=== PATIENT | male | born 1985 | race Caucasian/White ===

== ENCOUNTER 2021-01-10 08:09 | Inpatient (IN) | payer MEDICARE, OTHER ==
[~2021-01-10] VITALS: Ht 182.9 cm; Wt 61.2 kg
--- NOTE | 2021-01-10 08:30 | NUR ---
TO ER BED 4, BIBA RA 60 from [facility] "was being readied for dialysis today when he started c/o Chest pain, pt alert to name and stimuli, mumbles words that are not comprehendable, attached to monitor
[2021-01-10 09:00] LABS: BASOPHILS # (AUTO) 0.1 K/uL (0.0-0.2); EOSINOPHILS % (AUTO) 3.1 % (0.0-6.0); HEMATOCRIT 31 % (39-51); LYMPHOCYTES # (AUTO) 1.3 K/uL (0.8-4.8); LYMPHOCYTES % (AUTO) 18.5 % (20.0-44.0); MEAN CORPUSCULAR HGB CONC 33 g/dl (31.0-36.0); MEAN CORPUSCULAR VOLUME 88 fL (80-96); MONOCYTES # (AUTO) 0.7 K/uL (0.1-1.30); MONOCYTES % (AUTO) 10.7 % (2.0-12.0); NEUTROPHILS # (AUTO) 4.5 K/uL (1.8-8.9); NEUTROPHILS % (AUTO) 66.7 % (43.0-81.0); PLATELET COUNT (AUTO) 249 K/uL (150-450); RED BLOOD CELL COUNT(AUTO) 3.45 MIL/uL (4.5-6.0); WHITE BLOOD COUNT (AUTO) 6.8 K/uL (4.3-11.0)
[2021-01-10 09:11] LABS: CALCIUM, SERUM 10.3 mg/dL (8.5-10.1)
[2021-01-10 09:12] LABS: CREATININE 8.2 mg/dL (0.6-1.3)
--- NOTE | 2021-01-10 09:12 | NUR ---
covid swab done and sent to lab
--- NOTE | 2021-01-10 09:21 | NUR ---
MOVE SHEET SUBMITTED.
[2021-01-10] MEDS ORDERED: ASPIRIN 300 MG/SUPP.RECT RC ONE ×2 (09:28→09:30)
[2021-01-10] MEDS ORDERED: AZITHROMYCIN 500 MG in IV D5W 250 ML IV ONE (09:30)
[2021-01-10] MEDS ORDERED: CEFTRIAXONE 1 G in IV D5W 50 ML IV SCH (09:30)
[2021-01-10] MEDS ORDERED: LOSA25TA27 GT (10:13)
[2021-01-10] MEDS ORDERED: MINO2.5T GT (10:13)
[2021-01-10] MEDS ORDERED: FOLI0.8T2 GT (10:13)
[2021-01-10] MEDS ORDERED: NUT.237L67 GT (10:13)
[2021-01-10] MEDS ORDERED: CARV6.25 GT (10:13)
[2021-01-10] MEDS ORDERED: BISA10SU11 RC (10:13)
[2021-01-10] MEDS ORDERED: ACET325T53 PO (10:13)
[2021-01-10] MEDS ORDERED: LEVE500T9 GT (10:13)
[2021-01-10] MEDS ORDERED: HYDR-3973 GT (10:13)
[2021-01-10] MEDS ORDERED: ZINC220C6 GT (10:13)
[2021-01-10] MEDS ORDERED: MAGN400O6 GT (10:13)
[2021-01-10] MEDS ORDERED: SENN8.6T19 GT (10:13)
[2021-01-10] MEDS ORDERED: AMIN30LI2 GT (10:13)
[2021-01-10] MEDS ORDERED: ASCO500C17 GT (10:13)
[2021-01-10] MEDS ORDERED: OLAN2.5T3 GT (10:13)
--- NOTE | 2021-01-10 10:23 | NUR ---
BED 116-1
--- NOTE | 2021-01-10 10:51 | NUR ---
REPORT GIVEN TO ZION LLANES FOR UMESH
--- NOTE | 2021-01-10 10:56 | NUR ---
PATIENT TRANSFERRED TO ROOM 116-1 VIA ACLS PROTOCOL. IN NO DISTRESS NOTED.
--- NOTE | 2021-01-10 11:05 | NUR ---
received from er via stretcher ,no acute distress,md notified for admitting orders.
--- NOTE | 2021-01-10 11:27 | NUR ---
able to notify [facility] np will put orders.
[2021-01-10] MEDS ORDERED: BISACODYL SUPP (10 MG) 10 MG/SUPP.RECT SUPP.RECT RC PRN (12:00)
[2021-01-10] MEDS ORDERED: NEPRO 1,000 ML BOTTLE GT PRN (12:00)
[2021-01-10] MEDS ORDERED: NEPRO VAN 237 ML CAN GT SCH (12:00)
[2021-01-10] MEDS ORDERED: ONDANSETRON HCL/PF 4 MG/2 ML VIAL IVP PRN (12:00)
[2021-01-10] MEDS ORDERED: ASCORBIC ACID SYRUP 500 MG/5 ML UDC PO SCH (12:00)
--- NOTE | 2021-01-10 12:00 | NUR ---
RN NOTES PT RECEIVED FROM ER. PT STABLE WITH L ARM #20 GAUGE WITH AZITHROMYCIN RUNNING. SKIN INTACT AND VS STABLE. GT FLUSHING NO SIGN OF LEAKAGE. PT IS A/O X1. WILL CONTINUE TO MONITOR
[2021-01-10] MEDS: MINOXIDIL (2.5MG) 2.5 MG TABLET GT SCH ×2 (12:07→16:07)
[2021-01-10] MEDS: ZINC SULFATE 220 MG CAPSULE GT SCH (12:07)
[2021-01-10] MEDS: OLANZAPINE 2.5 MG TABLET GT SCH ×2 (12:07→16:07)
[2021-01-10] MEDS: CARVEDILOL 6.25 MG TABLET GT SCH ×2 (12:07→16:07)
[2021-01-10] MEDS: LOSARTAN POTASSIUM 25 MG TABLET GT SCH (12:07)
[2021-01-10] MEDS: LEVETIRACETAM SOL (5 ML) 100 MG/ML UDC PO SCH ×2 (12:27→22:15)
[2021-01-10] MEDS: VIT B CMPLX 3/FA/VIT C/BIOTIN 1 TAB TABLET GT SCH (12:27)
[2021-01-10 14:23] VITALS: BP 134/92
--- NOTE | 2021-01-10 15:34 | NUR ---
patient keep asking for food,verify with facility pt. taking food for oral gratification, aware and ok to resume it.
--- NOTE | 2021-01-10 18:28 | NUR ---
RN CLOSING NOTES PT IS STABLE AND A/O X1. PT IS RECEIVING DIALYSIS. PT HAS GT TUBE AND IS RUNNING AT 60ML/HR. WILL CONTINUE GT FEEDING AFTER DIALYSIS. PT ON TELE AND IS TACHY. PT HAS LEFT IV 20 GAUGE SALINE LOCK. FLUSHED FINE. SKIN INTACT. PT PLACED ON GT/PUREE DIET. WILL CONTINUE TO MONITOR
[2021-01-10 20:00] VITALS: BP 135/80
--- NOTE | 2021-01-10 20:00 | NUR ---
radiotelephone technical operator NOTES PT IN BED AWAKE A/O X1-2. DIALYSIS TREATMENT ON PROGRESS DIALYSIS NURSE AT BEDSIDE ,NO SOB NO DISTRESS NOTED ON R/A SATING 100% GT TUBE NEPHRO 1.8 AT 60ML/HR. TOLERATING WELL , ON ST 101 ON THE MONITOR , WITH LEFT AC IV 20 GAUGE SALINE LOCK. INTACT AND PATENT. SKIN INTACT. PT PLACED ON GT/PUREE DIET. V/S STABLE AFEBRILE ,WILL CONTINUE TO MONITOR.
--- NOTE | 2021-01-10 20:30 | NUR ---
MATHEMATICS IMPROVEMENT TEACHER NOTES HD TREATMENT COMPLETED AT 2030 HRS WITH 2 LITERS OUT , ALL DUE MEDS GIVEN ORDERED , PTS NOTED PULLING DIALYSIS DRESSING TOLD HIM NOT TO PULL . APPLIED NEW DRESSING , PTS GIVE SOME PUREED DIET TOLERATED WELL .WILL CONTINUE TO MONITOR PTS.
[2021-01-10] MEDS: SENNOSIDES 8.6 MG TABLET GT SCH (22:15)
[2021-01-10] MEDS: HEPARIN SODIUM, PORCINE 5000 UNITS/1 ML VIAL SQ SCH (22:16)
[2021-01-11] VITALS: BP 128/89
--- NOTE | 2021-01-11 00:30 | NUR ---
EDUCATION PROFESSOR NOTES PTS AGAIN REMOVED THE DIALYSIS DRESSING ,WILL INFORMED MD TO GET ORDER FOR BILATERAL SOFT WRIST RESTRAINT , WILL CONTINUE TO MONITOR PTS.
--- NOTE | 2021-01-11 02:20 | NUR ---
MICROSOFT NET DEVELOPER NOTES ABLE TO GET ORDER FROM MD SENIOR JAVA WEB APPLICATION DEVELOPER DR HUSSEIN FOR BILATERAL SOFT WRIST RESTRAINT ORDER NOTED AND CARRIED OUT .
[2021-01-11 04:00] VITALS: BP 134/98
[2021-01-11 07:15] LABS: BASOPHILS % (AUTO) 0.8 % (0.0-2.0); EOSINOPHILS % (AUTO) 2.4 % (0.0-6.0); HEMATOCRIT 34 % (39-51); HEMOGLOBIN 11.1 g/dL (13.5-17.5); LYMPHOCYTES # (AUTO) 1.2 K/uL (0.8-4.8); LYMPHOCYTES % (AUTO) 21.2 % (20.0-44.0); MEAN CORPUSCULAR HGB CONC 33 g/dl (31.0-36.0); MEAN CORPUSCULAR VOLUME 89 fL (80-96); MONOCYTES # (AUTO) 0.6 K/uL (0.1-1.30); MONOCYTES % (AUTO) 9.8 % (2.0-12.0); NEUTROPHILS # (AUTO) 3.8 K/uL (1.8-8.9); NEUTROPHILS % (AUTO) 65.8 % (43.0-81.0); PLATELET COUNT (AUTO) 236 K/uL (150-450); WHITE BLOOD COUNT (AUTO) 5.8 K/uL (4.3-11.0)
--- NOTE | 2021-01-11 07:15 | NUR ---
RN OPENING NOTE Received patient asleep in bed appears calm and relaxed no signs of distress. On room air tolerating well. Noted with bilateral soft wrist restraints. intranet support removed 1 wrist restraint because patient was yelling. NGT Nepro at 60ml/hr tolerating well. L AC #20 flushes well. Safety measures maintained. Call light within reach. Will continue to monitor.
--- NOTE | 2021-01-11 07:28 | NUR ---
DISPENSARY ATTENDANT NOTES REPORT GIVEN TO TRICIA RN FOR CONTINUITY OF CARE.
[2021-01-11 07:37] LABS: CALCIUM, SERUM 9.8 mg/dL (8.5-10.1)
[2021-01-11 08:00] VITALS: BP 154/91
--- NOTE | 2021-01-11 09:00 | NUR ---
PUT PATIENT ON BILATERAL RESTRAINTS AGAIN DUE TO PULLING OUT DRESSING OF HD CATH.
[2021-01-11] MEDS: ZINC SULFATE 220 MG CAPSULE GT SCH (09:09)
[2021-01-11] MEDS: LEVETIRACETAM SOL (5 ML) 100 MG/ML UDC PO SCH ×2 (09:10→20:05)
[2021-01-11] MEDS: CARVEDILOL 6.25 MG TABLET GT SCH ×2 (09:10→16:54)
[2021-01-11] MEDS: ASCORBIC ACID 500 MG TABLET GT SCH (09:10)
[2021-01-11] MEDS: LOSARTAN POTASSIUM 25 MG TABLET GT SCH (09:11)
[2021-01-11] MEDS: OLANZAPINE 2.5 MG TABLET GT SCH ×2 (09:12→16:53)
[2021-01-11] MEDS: MINOXIDIL (2.5MG) 2.5 MG TABLET GT SCH ×2 (09:12→16:54)
[2021-01-11] MEDS: PROSOURCE / PROSTAT (PYXIS) 30 ML UDC GT SCH (09:12)
[2021-01-11] MEDS: VIT B CMPLX 3/FA/VIT C/BIOTIN 1 TAB TABLET GT SCH (09:12)
[2021-01-11] MEDS: HEPARIN SODIUM, PORCINE 5000 UNITS/1 ML VIAL SQ SCH ×2 (09:14→20:07)
[2021-01-11] MEDS ORDERED: LEVOFLOXACIN 500 MG /D5W 100ML 500 MG in PREMIX 1 EA IV SCH (10:00)
[2021-01-11] MEDS: LEVOFLOXACIN 250 MG /D5W 50 ML 250 MG in PREMIX 1 EA IV SCH (10:45)
[2021-01-11 12:00] VITALS: BP 157/91
[2021-01-11] MEDS ORDERED: ACETAMINOPHEN 325 MG TABLET PO PRN (12:30)
[2021-01-11] MEDS: NEPRO 1,000 ML BOTTLE GT PRN (12:33)
[2021-01-11 16:00] VITALS: BP 151/94
--- NOTE | 2021-01-11 18:52 | NUR ---
RN CLOSING NOTE Patient in bed calm and relaxed. No signs of distress on room air. On bilateral soft wrist restraints. GTF running tolerating well. Also has good food oral intake. Vital signs within normal limits. Maintained safety measures. R chest HD cath and L AC dressing intact. Endorsed to restaurant shift leader for alka.
[2021-01-11 20:00] VITALS: BP 163/88
--- NOTE | 2021-01-11 20:00 | NUR ---
manager telemetry NOTES PT IN BED AWAKE A/O X1-2 ,NO SOB NO DISTRESS NOTED ON R/A SATING 100% GT TUBE NEPHRO 1.8 AT 60ML/HR. TOLERATING WELL , ON ST 100 ON THE MONITOR , WITH LEFT AC IV 20 GAUGE SALINE LOCK. INTACT AND PATENT. SKIN INTACT. PT PLACED ON GT/PUREE DIET. ON BILATERAL WRIST RESTRAINT D/T PULLING OF DRESSING HD CATH AND PULLING INVASIVE TUBING V/S STABLE AFEBRILE.PTS NOTED WITH EPISODE OF SCREAMING .WILL CONTINUE TO MONITOR.
[2021-01-11] MEDS: SENNOSIDES 8.6 MG TABLET GT SCH (22:44)
[2021-01-12] VITALS: BP 148/99
[2021-01-12 04:00] VITALS: BP 156/90
[2021-01-12] MEDS: NEPRO 1,000 ML BOTTLE GT PRN (04:54)
--- NOTE | 2021-01-12 06:11 | NUR ---
television picture tube rebuilder notes Pts remains in bed awake stable screams at times ,no sob no distress noted all needs attended too .call light within reach .kept pts clean dry and comfortable ,will endorse pts to rn day shift for continuity of care .
[2021-01-12 07:14] LABS: BASOPHILS % (AUTO) 0.7 % (0.0-2.0); EOSINOPHILS % (AUTO) 1.9 % (0.0-6.0); HEMATOCRIT 33 % (39-51); HEMOGLOBIN 10.8 g/dL (13.5-17.5); LYMPHOCYTES # (AUTO) 1.5 K/uL (0.8-4.8); LYMPHOCYTES % (AUTO) 20.1 % (20.0-44.0); MEAN CORPUSCULAR HGB CONC 32 g/dl (31.0-36.0); MEAN CORPUSCULAR VOLUME 88 fL (80-96); MONOCYTES # (AUTO) 0.7 K/uL (0.1-1.30); MONOCYTES % (AUTO) 9.5 % (2.0-12.0); NEUTROPHILS # (AUTO) 4.9 K/uL (1.8-8.9); NEUTROPHILS % (AUTO) 67.8 % (43.0-81.0); PLATELET COUNT (AUTO) 234 K/uL (150-450); RED BLOOD CELL COUNT(AUTO) 3.77 MIL/uL (4.5-6.0); WHITE BLOOD COUNT (AUTO) 7.3 K/uL (4.3-11.0)
[2021-01-12 07:33] LABS: CALCIUM, SERUM 10.5 mg/dL (8.5-10.1); CREATININE 6.9 mg/dL (0.6-1.3); MAGNESIUM 2.6 mg/dL (1.8-2.4); PHOSPHORUS 5.6 mg/dL (2.5-4.9); POTASSIUM 4.5 mmol/L (3.5-5.1)
--- NOTE | 2021-01-12 07:45 | NUR ---
RN OPENING NOTES; RECEIVED PT IN BED RESTING. PT A/OX1. 0 SOB OR DISTRESS NOTED. PT SKIN INTACT. PT ON SOFT WRIST RESTRAINT, RENEWED AT 0300 THIS MORNING. SAFETY MEASURES RENDERED. BED IN LOWEST POSITION WITH BED LOCK AND CALL LIGHT WITHIN REACH. WILL CONTINUE TO MONITOR.
[2021-01-12 08:00] VITALS: BP 156/90
[2021-01-12] MEDS: OLANZAPINE 2.5 MG TABLET GT SCH ×2 (09:27→16:19)
[2021-01-12] MEDS: ASCORBIC ACID 500 MG TABLET GT SCH (09:27)
[2021-01-12] MEDS: LOSARTAN POTASSIUM 25 MG TABLET GT SCH (09:27)
[2021-01-12] MEDS: ZINC SULFATE 220 MG CAPSULE GT SCH (09:27)
[2021-01-12] MEDS: MINOXIDIL (2.5MG) 2.5 MG TABLET GT SCH ×2 (09:27→16:19)
[2021-01-12] MEDS: CARVEDILOL 6.25 MG TABLET GT SCH ×2 (09:28→16:19)
[2021-01-12] MEDS: LEVETIRACETAM SOL (5 ML) 100 MG/ML UDC PO SCH ×2 (09:30→21:46)
[2021-01-12] MEDS: PROSOURCE / PROSTAT (PYXIS) 30 ML UDC GT SCH (09:30)
[2021-01-12] MEDS: VIT B CMPLX 3/FA/VIT C/BIOTIN 1 TAB TABLET GT SCH (09:30)
[2021-01-12] MEDS: HEPARIN SODIUM, PORCINE 5000 UNITS/1 ML VIAL SQ SCH ×2 (09:31→21:58)
[2021-01-12] MEDS: LEVOFLOXACIN 250 MG /D5W 50 ML 250 MG in PREMIX 1 EA IV SCH (10:08)
[2021-01-12 12:00] VITALS: BP 142/96
[2021-01-12 16:00] VITALS: BP 133/90
--- NOTE | 2021-01-12 18:56 | NUR ---
RN CLOSING NOTES; PT IN BED RESTING. PT A/OX1. 0 SOB OR DISTRESS NOTED. PT SKIN INTACT. PT ON SOFT WRIST RESTRAINT, RENEWED AT 0300 THIS MORNING. SAFETY MEASURES RENDERED. PT HAD DIALYSIS AND TOLERATED WELL. BED IN LOWEST POSITION WITH BED LOCK AND CALL LIGHT WITHIN REACH. ENDORSE TO ELECTROLYSIS INVESTIGATOR IN STABLE CONDITION.
[2021-01-12 20:00] VITALS: BP 127/82
[2021-01-12] MEDS: SENNOSIDES 8.6 MG TABLET GT SCH (21:46)
[2021-01-13] VITALS: BP 135/91
[2021-01-13 04:00] VITALS: BP 138/72
[2021-01-13] MEDS: NEPRO 1,000 ML BOTTLE GT PRN (05:36)
--- NOTE | 2021-01-13 06:57 | NUR ---
RN NOTES, PATIENT SLEEPING A/OX1, ON 2LPM VIA NC WITH OPTIMAL O2 SAT LEVEL, NO SOB/ACUTE DISTRESS NOTED, ON BILATERAL SOFT WRIST RESTRAINT, PATIENT ATTEMPTING TO PULL LINES SPECIALLY ZORAIDA CATH FOR HD, KEPT SAFE ALL NIGHT, BED LOCKED AND LOWEST POSITION, WILL ENDORSE CONTINUITY OF CARE TO ONCOMING NURSE.
[2021-01-13 07:21] LABS: BASOPHILS % (AUTO) 0.8 % (0.0-2.0); EOSINOPHILS % (AUTO) 1.2 % (0.0-6.0); HEMATOCRIT 33 % (39-51); HEMOGLOBIN 10.9 g/dL (13.5-17.5); LYMPHOCYTES # (AUTO) 1.1 K/uL (0.8-4.8); MEAN CORPUSCULAR HGB CONC 33 g/dl (31.0-36.0); MEAN CORPUSCULAR VOLUME 88 fL (80-96); MONOCYTES # (AUTO) 0.7 K/uL (0.1-1.30); NEUTROPHILS # (AUTO) 3.8 K/uL (1.8-8.9); PLATELET COUNT (AUTO) 208 K/uL (150-450); RED BLOOD CELL COUNT(AUTO) 3.72 MIL/uL (4.5-6.0); WHITE BLOOD COUNT (AUTO) 5.7 K/uL (4.3-11.0)
--- NOTE | 2021-01-13 07:41 | NUR ---
RN OPENING NOTES; RECEIVED PT IN BED RESTING. PT A/OX1. 0 SOB OR DISTRESS NOTED. PT SKIN INTACT. PT ON SOFT WRIST RESTRAINT, RENEWED AT 0300 THIS MORNING. LPT IS NO NEPHRO 1.8C 60ML/HR. TOLERATING WELL WITH NO RESIDUALS. SAFETY MEASURES RENDERED. BED IN LOWEST POSITION WITH BED LOCK AND CALL LIGHT WITHIN REACH. WILL CONTINUE TO MONITOR.
[2021-01-13 07:43] LABS: CALCIUM, SERUM 10.3 mg/dL (8.5-10.1); CREATININE 6.3 mg/dL (0.6-1.3); MAGNESIUM 2.7 mg/dL (1.8-2.4); PHOSPHORUS 5.1 mg/dL (2.5-4.9); POTASSIUM 3.9 mmol/L (3.5-5.1)
[2021-01-13 08:00] VITALS: BP 145/94
[2021-01-13] MEDS: VIT B CMPLX 3/FA/VIT C/BIOTIN 1 TAB TABLET GT SCH (09:05)
[2021-01-13] MEDS: LEVETIRACETAM SOL (5 ML) 100 MG/ML UDC PO SCH ×2 (09:05→21:55)
[2021-01-13] MEDS: HEPARIN SODIUM, PORCINE 5000 UNITS/1 ML VIAL SQ SCH ×2 (09:08→21:56)
[2021-01-13] MEDS: CARVEDILOL 6.25 MG TABLET GT SCH ×2 (09:09→16:42)
[2021-01-13] MEDS: MINOXIDIL (2.5MG) 2.5 MG TABLET GT SCH ×2 (09:09→16:42)
[2021-01-13] MEDS: LOSARTAN POTASSIUM 25 MG TABLET GT SCH (09:09)
[2021-01-13] MEDS: ASCORBIC ACID 500 MG TABLET GT SCH (09:10)
[2021-01-13] MEDS: ZINC SULFATE 220 MG CAPSULE GT SCH (09:10)
[2021-01-13] MEDS: OLANZAPINE 2.5 MG TABLET GT SCH ×2 (09:10→16:41)
[2021-01-13] MEDS: PROSOURCE / PROSTAT (PYXIS) 30 ML UDC GT SCH (09:10)
[2021-01-13] MEDS ORDERED: LEVOFLOXACIN (250MG) 250 MG TABLET PO SCH (11:00)
[2021-01-13 12:00] VITALS: BP 126/78
[2021-01-13 16:00] VITALS: BP 128/84
--- NOTE | 2021-01-13 18:26 | NUR ---
RN CLOSING NOTES; PT IN BED RESTING. PT A/OX1. 0 SOB OR DISTRESS NOTED. PT SKIN INTACT. PT ON SOFT WRIST RESTRAINT, RENEWED AT 0300. PT TO BE DISCHARGED. WAITING GEODETIC ENGINEER FROM MECHANICAL PRODUCT ENGINEER. ALL DISCHARGE PAPER WORK DONE. AWAITING FOR SNF TO GIVE CLEARANCE ON OPEN BED. SAFETY MEASURES RENDERED. PT HAD DIALYSIS AND TOLERATED WELL. BED IN LOWEST POSITION WITH BED LOCK AND CALL LIGHT WITHIN REACH. ENDORSE TO HELP DESK ASSOCIATE IN STABLE CONDITION.
[2021-01-13 20:00] VITALS: BP 132/79
--- NOTE | 2021-01-13 20:00 | NUR ---
RN NOTE RECEIVED PT IN BED, ALERT AND ORIENTED X1, NOT IN ANY DISTRESS. ON O2 VIA NC AT 2L. DENIES ANY SOB, HD CATH ON RCHEST INTACT, IV ON LAC PATENT AND INTACT. PT WITH SOFT RESTRAINTS ON HERNAN WRIST, WITH GOOD CIRCULATION. GT PATENT AND IN PLACE, AUSCULTATED FOR PLACEMENT. WILL CONTINUE TO MONITOR. ALL SAFETY MEASURES IN PLACE PER PROTOCOL.
[2021-01-13] MEDS: SENNOSIDES 8.6 MG TABLET GT SCH (22:11)
[2021-01-14 04:00] VITALS: BP 141/90
[2021-01-14] MEDS: NEPRO 1,000 ML BOTTLE GT PRN (05:06)
--- NOTE | 2021-01-14 07:00 | NUR ---
RN NOTE PT SLEEPING. WITH EPISODES OF SCRATCHING AND PULLING OUT HD DRESSINGS, DESPITE OF RESTRAINTS, PT STILL MANAGE TO PULL OUT. NO S/SX OF INFECTION NOTED. HD REMAIN INTACT. CONTINUE ON GT FEEDING OF NEPRO AT 60ML/HR. NO RESIDUALS NOTED. KEPT HOB ELEVATED. CONTINUE WITH RESTRAINTS, WITH GOOD CIRCULATION, WNL NO SKIN BREAKDOWN NOTED. ON FREQUENT VISUAL CHECKS. WILL ENDORSE TO NEXT SHIFT NURSE FOR UMESH.
--- NOTE | 2021-01-14 07:30 | NUR ---
ms rn note patient in bed ,awake alert x1, on 2l nc, no sob noted at this time , on g tube feeding as ordered , no residual noted at this time ,keep hob elevated , rt cw hd cath in placed , lac hl intact ,bed in lowest and locked position, will cont to monitor closely
[2021-01-14] MEDS: VIT B CMPLX 3/FA/VIT C/BIOTIN 1 TAB TABLET GT SCH (08:21)
[2021-01-14] MEDS: ZINC SULFATE 220 MG CAPSULE GT SCH (08:22)
[2021-01-14] MEDS: ASCORBIC ACID 500 MG TABLET GT SCH (08:22)
[2021-01-14] MEDS: PROSOURCE / PROSTAT (PYXIS) 30 ML UDC GT SCH (08:22)
[2021-01-14] MEDS: LEVETIRACETAM SOL (5 ML) 100 MG/ML UDC PO SCH (08:22)
[2021-01-14] MEDS: OLANZAPINE 2.5 MG TABLET GT SCH (08:23)
[2021-01-14] MEDS: LOSARTAN POTASSIUM 25 MG TABLET GT SCH (08:23)
[2021-01-14] MEDS: CARVEDILOL 6.25 MG TABLET GT SCH (08:23)
[2021-01-14] MEDS: MINOXIDIL (2.5MG) 2.5 MG TABLET GT SCH (08:25)
[2021-01-14] MEDS: HEPARIN SODIUM, PORCINE 5000 UNITS/1 ML VIAL SQ SCH (08:26)
[2021-01-14 09:00] VITALS: BP 155/99
--- NOTE | 2021-01-14 09:30 | NUR ---
MS RN NOTE CALLED TO [facility] REPORT GIVEN TO DYLAN LLANES , CALLED FAMILY ASAF AND JASS LEFT A MESSAGE ON ANSWER MACHINE
--- NOTE | 2021-01-14 10:00 | NUR ---
MS RN NOTE PER DR BENITEZ OK TO DISCHARGE SINCE YESTERDAY, DURAL MECHANIC NOTIFIED
--- NOTE | 2021-01-14 10:21 | NUR ---
MS RN NOTE AMBULASE ARRIVED ,REPORT GIVEN, TAKING TO SNF WITH STABLE CONDITION
== END 2021-01-14 10:33 | DRG 177 ==
LOC: ER 08:15 → TELE1 10:47 → MEDSG1 01-13 19:42
PROVIDERS: ADMIT Nurse Practitioner Acute Care; ATTEND Nurse Practitioner Acute Care
PROC: 5A1D70Z Performance of Urinary Filtration, Intermittent, Less than 6 Hours Per Day (ICD-10-PCS; principal; 2021-01-10)
DX: J15.6 Pneumonia due to other Gram-negative bacteria (principal); R53.2 Functional quadriplegia; N18.6 End stage renal disease; I71.00 Dissection of unspecified site of aorta; I21.A1 Myocardial infarction type 2; D68.59 Other primary thrombophilia; G93.1 Anoxic brain damage, not elsewhere classified; I12.0 Hypertensive chronic kidney disease with stage 5 chronic kidney disease or end stage renal disease; I42.2 Other hypertrophic cardiomyopathy; J96.10 Chronic respiratory failure, unspecified whether with hypoxia or hypercapnia; J98.11 Atelectasis; G93.49 Other encephalopathy; D63.1 Anemia in chronic kidney disease; D73.5 Infarction of spleen; K21.9 Gastro-esophageal reflux disease without esophagitis; Z86.73 Personal history of transient ischemic attack (TIA), and cerebral infarction without residual deficits; Z99.2 Dependence on renal dialysis; Z20.822 Contact with and (suspected) exposure to COVID-19; R27.8 Other lack of coordination; F20.9 Schizophrenia, unspecified; M89.9 Disorder of bone, unspecified; R13.10 Dysphagia, unspecified; Z95.828 Presence of other vascular implants and grafts; Z79.899 Other long term (current) drug therapy; D63.8 Anemia in other chronic diseases classified elsewhere; E83.52 Hypercalcemia; I71.2 Thoracic aortic aneurysm, without rupture; R56.9 Unspecified convulsions
CPT/HCPCS: 36415; 71045-TC; 80048-TC; 80061-TC; 83735-TC; 83970; 84100-TC; 84484-TC; 85025-TC; 86706; 87340; 90935-TC; 92526; 92611-TC; 93307-TC; A4216; G0378; J0456; J0696; J1644; J1953; J1956; J7030; J7050; J7060; U0003

== ENCOUNTER 2022-02-26 20:58 | Inpatient (IN) | payer MEDICARE, OTHER ==
[~2022-02-26] VITALS: Ht 182.9 cm; Wt 59.0 kg
[~2022-02-26 20:58] MED LIST: ACET325T53 PO; AMIN30LI2 GT; ASCO500C17 GT; BISA10SU11 RC; CARV6.25 GT; FOLI0.8T2 GT; HYDR-3973 GT; LEVE500T9 GT; LOSA25TA27 GT; MAGN400O6 GT; MINO2.5T GT; NUT.237L67 GT; OLAN2.5T3 GT; SENN8.6T19 GT; ZINC220C6 GT
--- NOTE | 2022-02-26 21:10 | NUR ---
PATIENT HAS RIGHT SUBCLAVIAN PERMACATH FOR HD. LAST HD WAS YESTERDAY.
--- NOTE | 2022-02-26 21:10 | NUR ---
[id number] FROM [facility] C/O CP STARTED IN THE MORNING. PATIENT DESCRIBED PRESSURE WITH SCALE OF 3/10. ATTACHED TO MONITOR. PATIENT IS PARAPLEGIC. AAOX4. VERY SLOW IN RESPONSE VERBALLY. ON 2LPM NC SATURATING 100%. WITH GTUBE. WITH IV CANNULA G18 ON LEFT HAND. VITALS CHECKED.
--- NOTE | 2022-02-26 21:47 | NUR ---
XRAY AT BEDSIDE
[2022-02-26] MEDS ORDERED: KETOROLAC TROMETHAMINE INJ 30 MG/ML VIAL IV ONE (23:00)
[2022-02-26] MEDS ORDERED: ASPIRIN 81 MG TAB.CHEW GT ONE (23:00)
[2022-02-26 23:29] LABS: BASOPHILS # (AUTO) 0.1 K/uL (0.0-0.2); BASOPHILS % (AUTO) 0.6 % (0.0-2.0); HEMATOCRIT 29 % (39-51); HEMOGLOBIN 9.4 g/dL (13.5-17.5); LYMPHOCYTES # (AUTO) 0.6 K/uL (0.8-4.8); LYMPHOCYTES % (AUTO) 3.9 % (20.0-44.0); MEAN CORPUSCULAR HGB CONC 32 g/dl (31.0-36.0); MEAN CORPUSCULAR VOLUME 85 fL (80-96); MONOCYTES # (AUTO) 1.2 K/uL (0.1-1.30); MONOCYTES % (AUTO) 8.2 % (2.0-12.0); NEUTROPHILS % (AUTO) 87.3 % (43.0-81.0); PLATELET COUNT (AUTO) 85 K/uL (150-450); RED BLOOD CELL COUNT(AUTO) 3.47 MIL/uL (4.5-6.0); WHITE BLOOD COUNT (AUTO) 14.9 K/uL (4.3-11.0)
[2022-02-26] MEDS ORDERED: KETOROLAC TROMETHAMINE INJ 30 MG/ML VIAL ONE (23:31)
[2022-02-26] MEDS ORDERED: ASPIRIN 325 MG TABLET ONE (23:32)
[2022-02-26 23:41] LABS: D-DIMER 4.31 mg/L(FEU (0.17-0.50)
[2022-02-26 23:54] LABS: CALCIUM, SERUM 9.8 mg/dL (8.5-10.1); CARBON DIOXIDE 27 mmol/L (21-32); CHLORIDE 99 mmol/L (98-107); GLUCOSE 96 mg/dL (74-106); POTASSIUM 4.9 mmol/L (3.5-5.1); SODIUM SERUM 138 mmol/L (136-145)
[2022-02-27] MEDS ORDERED: NEPRO VAN 237 ML CAN GT SCH
[2022-02-27] MEDS ORDERED: BISACODYL SUPP (10 MG) 10 MG/SUPP.RECT SUPP.RECT RC PRN
[2022-02-27 00:01] LABS: ALANINE AMINOTRANSFERASE 72 U/L (12-78); ALBUMIN 3.4 g/dL (3.4-5.0); ALKALINE PHOSPHATASE 68 U/L (46-116); ASPARTATE AMINOTRANSFERASE 40 U/L (15-37); BILIRUBIN,DIRECT 0.1 mg/dL (0.0-0.2); BILIRUBIN,TOTAL 0.4 mg/dL (0.2-1.0); TOTAL PROTEIN, SERUM 7.3 g/dL (6.4-8.2); UREA NITROGEN, BLOOD 117 mg/dL (7-18)
--- NOTE | 2022-02-27 00:01 | NUR ---
CRITICAL LABS: BUN 117 CR 11 TROPONIN 136
[2022-02-27] MEDS ORDERED: IOHEXOL-350 100 ML VIAL IV ONE (00:11)
[2022-02-27] MEDS ORDERED: IV NS 0.9% 250 ML IV ONE (00:11)
[2022-02-27] MEDS ORDERED: CT SWABBABLE VALVE TRANS SET 1 EA INFUS.SET MC ONE (00:11)
[2022-02-27] MEDS ORDERED: MAGNESIUM HYDROXIDE 30 ML UDC PO PRN (00:30)
[2022-02-27] MEDS ORDERED: Z GUARD REMEDY 4 OZ OINT TP PRN (00:30)
[2022-02-27] MEDS ORDERED: ACETAMINOPHEN 650 MG/SUPP.RECT RC PRN (00:30)
[2022-02-27] MEDS: LEVETIRACETAM SOL (5 ML) 100 MG/ML UDC GT SCH (01:00)
[2022-02-27] MEDS ORDERED: IOHEXOL-300 100 ML VIAL IV ONE (01:57)
--- NOTE | 2022-02-27 02:33 | NUR ---
[facility] TRANSFER CENTER CALLED FOR HIGHER LEVEL OF CARE. FACESHEET AND CLINICALS FAXED TO [phone].
--- NOTE | 2022-02-27 02:36 | NUR ---
[facility] CALLED FOR HIGHER LEVEL OF CARE. NO BED CAPACITY.
--- NOTE | 2022-02-27 02:43 | NUR ---
DR LUIS LIRA. DR GRANADOS SPEAKING WITH AUTO BODY BUILDER APPRENTICE DR DEVI
--- NOTE | 2022-02-27 03:02 | NUR ---
[facility] TRANSFER CENTER CALLED FOR HIGHER LEVEL OF CARE TRANSFER CENTER. FACESHEET AND CLINICALS FAXED TO [phone]
--- NOTE | 2022-02-27 03:02 | NUR ---
IV ESTABLISHED LAC #18G S/L
--- NOTE | 2022-02-27 03:16 | NUR ---
ATTEMPTED TO CONTACT FAMILY JASS HANCOCK - [phone]. VOICEMAIL LEFT.
--- NOTE | 2022-02-27 03:20 | NUR ---
ATTEMPTED TO CONTACT EMERGENCY CONTACT JEANIE CHARLES - [phone]. VOICEMAIL LEFT.
--- NOTE | 2022-02-27 07:04 | NUR ---
ELENI HD RN NURSE AT PT'S BEDSIDE FOR HD
[2022-02-27] MEDS ORDERED: ALBUMIN 25% 25 GM in PREMIX 1 EA IV PRN (07:30)
--- NOTE | 2022-02-27 07:50 | NUR ---
TRINO MEREDITH FROM [facility] SPEAKING WITH SHRADDHA DUNNE.
--- NOTE | 2022-02-27 07:56 | NUR ---
DIALYSIS NURSE AT BEDSIDE
--- NOTE | 2022-02-27 08:01 | NUR ---
[facility] [phone] VIJI REQUESTING CLINICALS FAXED TO [phone]
--- NOTE | 2022-02-27 08:11 | NUR ---
TRINO MEREDITH FROM [facility] CALLED CASE BEING DECLINED DUE TO BED CAPACITY.
[2022-02-27 08:58] LABS: BAND % (MANUAL) 2 % (0.0-5.0); LYMPHOCYTES % (MANUAL) 2 % (16-48); MONOCYTES % (MANUAL) 2 % (0-11.0); NEUTROPHILS % (MANUAL) 94 (42-76)
[2022-02-27] MEDS ORDERED: ASCORBIC ACID SYRUP 500 MG/5 ML UDC GT SCH (09:00)
--- NOTE | 2022-02-27 10:01 | NUR ---
[facility] FEDE IN BED CONTROL TRANSFERING TO CASE MANAGEMENT [phone] LEFT TRY [phone] IF NO CALL BACK AFTER 30 MINS.
[2022-02-27] MEDS ORDERED: VANCOMYCIN 1 GM in IV D5W 250 ML IV PRN (11:00)
--- NOTE | 2022-02-27 11:32 | NUR ---
BED PATTERSON [phone] CM JASE STENT PLACED AT [facility]. ON 07/05/21 MD JOSÉ MIGUEL MONTEIRO PT DECLINES PROCEDURE AND DC WITH HOME HEALTH. CALL [phone] [facility] FOR AORTIC TRANSFERS.
--- NOTE | 2022-02-27 12:30 | NUR ---
[facility] FULL
--- NOTE | 2022-02-27 13:50 | NUR ---
[facility] DECLINED TRANSFER
--- NOTE | 2022-02-27 15:19 | NUR ---
PT IS NONVERBAL, AWARE HE NEEDS SURGERY, PT NODDED THAT HE GIVES CONSENT FOR SURGERY
--- NOTE | 2022-02-27 16:19 | NUR ---
02/27/22 PATIENT IS REQUIRING A HLOC TX DUE TO AN ABDOMINAL AORTIC ANEURYSM WITH A DISSECTION NOTED OF THE ABDOMINAL AORTA. CLINICALS FAXED TO: [facility] [phone] [phone] [facility] [phone] [phone] [facility] [phone] SPOKE TO JENISE AND INITIATED HLOC [facility] [phone] [phone] SPOKE TO YOSELIN AND SHE STATED SHE WILL REVIEW CLINICALS [facility] [phone] [phone]
--- NOTE | 2022-02-27 16:21 | NUR ---
PER VIJI FROM [facility] PATIENT IS DECLINED BY DR. RIVAS. PER VIJI PATIENT'S CASE IS TOO COMPLEX.
--- NOTE | 2022-02-27 16:49 | NUR ---
JEAN CALLED [facility] AORTIC LINE [phone] AND SPOKE TO JACINTO PRETTY. JACINTO REQUESTED FOR CLINICALS TO BE FAXED OVER TO [phone]. SHE STATED CLINICALS WILL BE REVIEWED AND THEIR SURGEON WILL CALL FOR PEER TO PEER. CLINICALS FAXED.
--- NOTE | 2022-02-27 17:18 | NUR ---
SPOKE WITH PEGGY [phone] FROM [facility] AND SHE IS PAGING THEIR SURGEON AND WILL CALL BACK
--- NOTE | 2022-02-27 17:29 | NUR ---
PEGGY FROM [facility] CALLED THORACIC INFORMED THAT THIS IS A VASCULAR ISSUE AND SO VASCULAR TEAM WILL BE PAGED.
--- NOTE | 2022-02-27 17:55 | NUR ---
DR. PAIGE FROM [facility] SPEAKING WITH DR. YATES
--- NOTE | 2022-02-27 18:15 | NUR ---
[facility] CALLED PT BEING DECLINED NEEDS CONTINUITY OF CARE FROM THE SURGEN THAT DID THE PROCEDURE. PER KONRAD.
[2022-02-27] MEDS: PROSOURCE / PROSTAT (PYXIS) 30 ML UDC GT SCH (19:00)
[2022-02-27] MEDS: ASPIRIN 81 MG TAB.CHEW GT SCH (19:00)
[2022-02-27] MEDS: LOSARTAN POTASSIUM 25 MG TABLET GT SCH (19:00)
[2022-02-27] MEDS: ZINC SULFATE 220 MG CAPSULE GT SCH (19:00)
[2022-02-27] MEDS: MINOXIDIL (2.5MG) 2.5 MG TABLET GT SCH (19:00)
[2022-02-27] MEDS: OLANZAPINE 2.5 MG TABLET GT SCH (19:00)
[2022-02-27] MEDS: VIT B CMPLX 3/FA/VIT C/BIOTIN 1 TAB TABLET GT SCH (19:00)
[2022-02-27] MEDS: CARVEDILOL 6.25 MG TABLET GT SCH (19:00)
[2022-02-27] MEDS: PANTOPRAZOLE 40 MG VIAL IV SCH (19:00)
[2022-02-27] MEDS: SENNOSIDES 8.6 MG TABLET GT SCH (19:00)
--- NOTE | 2022-02-27 19:00 | NUR ---
PATIENT DAILY MEDS HELD WHILE RECEIVING HD
--- NOTE | 2022-02-27 19:07 | NUR ---
[facility] [phone]
--- NOTE | 2022-02-27 19:19 | NUR ---
[facility] AORTIC TRANSFER LINE [phone]. MANSI FROM TRANSFER CENTER STATES THAT PT WAS DECLINED EARFLIER TODAY. INFORMED THAT THE STENT WAS PERFORMED AT [facility]. DR. SIN SPEAKING WITH DR. YATES.
[2022-02-27 19:56] LABS: BASOPHILS % (AUTO) 0.1 % (0.0-2.0); EOSINOPHILS % (AUTO) 1.7 % (0.0-6.0); HEMATOCRIT 29 % (39-51); HEMOGLOBIN 9.2 g/dL (13.5-17.5); LYMPHOCYTES # (AUTO) 0.4 K/uL (0.8-4.8); LYMPHOCYTES % (AUTO) 2.7 % (20.0-44.0); MEAN CORPUSCULAR HGB CONC 32 g/dl (31.0-36.0); MEAN CORPUSCULAR VOLUME 85 fL (80-96); MONOCYTES # (AUTO) 1.4 K/uL (0.1-1.30); MONOCYTES % (AUTO) 8.4 % (2.0-12.0); NEUTROPHILS % (AUTO) 87.1 % (43.0-81.0); PLATELET COUNT (AUTO) 93 K/uL (150-450); RED BLOOD CELL COUNT(AUTO) 3.36 MIL/uL (4.5-6.0); WHITE BLOOD COUNT (AUTO) 16.1 K/uL (4.3-11.0)
[2022-02-27 20:39] LABS: BAND % (MANUAL) 10 % (0.0-5.0); BLASTS, MANUAL % 1 % (0-0); LYMPHOCYTES % (MANUAL) 4 % (16-48); METAMYELOCYTES % 2 % (0-0); MONOCYTES % (MANUAL) 3 % (0-11.0); NEUTROPHILS % (MANUAL) 80 (42-76)
--- NOTE | 2022-02-27 20:48 | NUR ---
SPOKE TO PEGGY FROM [facility] STATES AWAITING CALL BACK FROM [facility]
--- NOTE | 2022-02-27 20:59 | NUR ---
SPOKE TO TRAVON LLANES FROM [facility] - STATES [facility] HAVE BOTH DECLINED THE PT
[2022-02-27] MEDS ORDERED: CEFEPIME 1 GM in IV D5W 50 ML IV ONE (23:30)
--- NOTE | 2022-02-28 | NUR ---
PATIENT IN BED RESTING, VSS, NO ACUTE DISTRESS NOTED. PATIENT CONNECTED TO CARIDAC AND POX MONITORS. PATIENT IS AFEBRILE. WILL CONTINUE TO MONITOR.
[2022-02-28] MEDS ORDERED: CEFEPIME 1 GM VIAL ONE (00:46)
[2022-02-28] MEDS ORDERED: LEVETIRACETAM SOL (5 ML) 100 MG/ML UDC ONE (00:47)
[2022-02-28] MEDS ORDERED: HYDROCODONE/APAP 5/325MG TABLET ONE (00:47)
[2022-02-28] MEDS: LEVETIRACETAM SOL (5 ML) 100 MG/ML UDC GT SCH ×3 (01:00→21:07)
--- NOTE | 2022-02-28 01:00 | NUR ---
PATIENT NOTED WITH PAIN AROUND CHEST AREA, VSS, NORCO 5 MG GIVEN VIA G TUBE. WILL CONTINUE TO MONITOR.
[2022-02-28] MEDS: HYDROCODONE/APAP 5/325MG TABLET GT PRN ×2 (01:08→11:03)
[2022-02-28] MEDS ORDERED: VANCOMYCIN 1 GM in IV D5W 250 ML IV ONE (07:00)
--- NOTE | 2022-02-28 08:19 | NUR ---
REPORT GIVEN TO TIFFANY LLANES FOR UMESH
--- NOTE | 2022-02-28 08:34 | NUR ---
TRANSFERRED TO BED 13 IN STABLE CONDITION
--- NOTE | 2022-02-28 09:10 | NUR ---
RN NOTE PATIENT WAS TRANSFERRED FROM THE ER WITH PRIMARY DIAGNOSIS OF CHEST PAIN.UPON INITIAL ASSESSMENT PATIENT GRIFFIN CHEST PAIN OR ANY KIND OF DISCOMFORT .PATIENT IS NION VERBAL , BUT CAN TURN HIS HIS HEAD FOR NO .PATIENT HAS HX OF CVA AND LATE EFFECT CVA PARALYZED BELLOW THE WAIST .PATIENT IS ON G TUBE FEEDING TOLERATING WELL . HAS IV ACCESS OF LAC 18 G .BED IS AT LOWEST POSITION , BED SIDE RAILS ARE UP , CALL LIGHT WITHIN REACH .WILL CONTINUE TO MONITOR
[2022-02-28] MEDS: MINOXIDIL (2.5MG) 2.5 MG TABLET GT SCH ×2 (09:14→16:03)
[2022-02-28] MEDS: ZINC SULFATE 220 MG CAPSULE GT SCH (09:15)
[2022-02-28] MEDS: CARVEDILOL 6.25 MG TABLET GT SCH ×2 (09:15→16:05)
[2022-02-28] MEDS: VIT B CMPLX 3/FA/VIT C/BIOTIN 1 TAB TABLET GT SCH (09:15)
[2022-02-28] MEDS: LOSARTAN POTASSIUM 25 MG TABLET GT SCH (09:16)
[2022-02-28] MEDS: ASPIRIN 81 MG TAB.CHEW GT SCH (09:16)
[2022-02-28] MEDS: ASCORBIC ACID 500 MG TABLET GT SCH (09:16)
[2022-02-28] MEDS: OLANZAPINE 2.5 MG TABLET GT SCH ×2 (09:17→16:05)
[2022-02-28] MEDS: PANTOPRAZOLE 40 MG VIAL IV SCH (09:17)
[2022-02-28] MEDS: PROSOURCE / PROSTAT (PYXIS) 30 ML UDC GT SCH (09:17)
[2022-02-28 09:36] VITALS: BP 133/76
[2022-02-28] MEDS ORDERED: NEPRO 1,000 ML BOTTLE GT SCH ×2 (10:30→14:00)
[2022-02-28 10:42] LABS: BASOPHILS % (AUTO) 0.1 % (0.0-2.0); HEMATOCRIT 29 % (39-51); HEMOGLOBIN 9.2 g/dL (13.5-17.5); LYMPHOCYTES # (AUTO) 0.5 K/uL (0.8-4.8); LYMPHOCYTES % (AUTO) 2.3 % (20.0-44.0); MEAN CORPUSCULAR HGB CONC 31 g/dl (31.0-36.0); MEAN CORPUSCULAR VOLUME 86 fL (80-96); MONOCYTES # (AUTO) 1.5 K/uL (0.1-1.30); MONOCYTES % (AUTO) 7.6 % (2.0-12.0); NEUTROPHILS # (AUTO) 17.1 K/uL (1.8-8.9); PLATELET COUNT (AUTO) 96 K/uL (150-450); WHITE BLOOD COUNT (AUTO) 19.2 K/uL (4.3-11.0)
[2022-02-28] MEDS ORDERED: VANCOMYCIN 500 MG in IV D5W 100 ML IV PRN (11:00)
[2022-02-28 11:13] LABS: CALCIUM, SERUM 9.7 mg/dL (8.5-10.1); MAGNESIUM 2.7 mg/dL (1.8-2.4); PHOSPHORUS 5.1 mg/dL (2.5-4.9); POTASSIUM 5.8 mmol/L (3.5-5.1)
[2022-02-28 11:25] LABS: CREATININE 10.8 mg/dL (0.6-1.3)
[2022-02-28] MEDS: METOPROLOL TARTRATE 50 MG TABLET GT SCH ×2 (11:29→17:26)
[2022-02-28] MEDS ORDERED: ALTEPLASE CATHFLO 2 MG/VIAL IJ ONE (11:30)
[2022-02-28 13:19] VITALS: BP 105/70
[2022-02-28 13:42] LABS: LYMPHOCYTES % (MANUAL) 7 % (16-48); MONOCYTES % (MANUAL) 8 % (0-11.0); NEUTROPHILS % (MANUAL) 85 (42-76)
[2022-02-28 17:09] VITALS: BP 97/61
--- NOTE | 2022-02-28 18:22 | NUR ---
RN CLOSING NOTE PATIENT IS IN BED LILIANA VERBAL , ON 8 L OF O2 VIA SIMPLE MASK , O2 SAT 97 %, TOLERATING WELL GRIFFIN CHEST PAIN OR ANY KIND OF DISCOMFORT .PATIENT IS NON VERBAL , BUT CAN TURN HIS HIS HEAD FOR NO .PATIENT IS BED BOUND , SKIN INTACT NO OPEN WOUNDS .PATIENT IS ON G TUBE FEEDING TOLERATING WELL . HAS IV ACCESS OF LAC 18 G .ALL MEDS WERE ADMINISTERED ALL NEEDS WERE MET BED IS AT LOWEST POSITION , BED SIDE RAILS ARE UP , CALL LIGHT WITHIN REACH .WILL ENDORSE CLINICAL PHYSICIAN ASSISTANT NURSE TO FALLOW POC.
--- NOTE | 2022-02-28 19:10 | NUR ---
RN OPENING NOTE RECEIVED PATIENT IN ASLEEP, NON VERBAL, ON SIMPLE MASK 8L, TOLERATING WELL, NO S/S OF ACUTE DISTRESS, SATURATION ,TELE MONITOR READING SR HR 89 WITH ELEVATED T WAVE. LAC #18G, INTACT AND PATENT, RU CHEST PERM CATH FOR DIALYSIS ON M,W,F. G TUBE PRESENT RUNNING NEPHRO@65ML/HR, NO RESIDUAL NOTED. ALL SAFETY MEASURES IN PLACE, BED ALARM ON, BED IN LOW LOCK POSITION, CALL LIGHT AND TABLE WITHIN EASY REACH, SIDE RAILS UP X2. WILL CONTINUE TO MONITOR THROUGHOUT SHIFT.
[2022-02-28 20:00] VITALS: BP 103/73
[2022-02-28] MEDS ORDERED: CEFEPIME 1 GM in IV D5W 50 ML IV SCH (21:00)
[2022-02-28] MEDS: SENNOSIDES 8.6 MG TABLET GT SCH (21:07)
[2022-02-28] MEDS ORDERED: MEROPENEM 1 G VIAL IV ONE (22:38)
[2022-02-28] MEDS ORDERED: MEROPENEM 500 MG VIAL IV ONE (22:42)
[2022-02-28] MEDS ORDERED: MEROPENEM 500 MG in IV NS 0.9% 50 ML IV SCH (23:00)
--- NOTE | 2022-02-28 23:00 | NUR ---
TD rn notes merrem i gram pull out in the phyxis but not given instead returned to phyxis d/t dose is 500mg not 1gm.
[2022-03-01] VITALS: BP_SYST 141; BP_SYST 91; BP_DIAS 60; BP_DIAS 65
[2022-03-01 04:00] VITALS: BP 90/59
--- NOTE | 2022-03-01 05:45 | NUR ---
RN NOTE PATIENT RIPPED HIS DRESSING OFF TO HIS PERM CATHETER. REPLACED DRESSING AND GOT AN ORDER FOR SOFT WRIST RESTRAINTS.
[2022-03-01] MEDS: METOPROLOL TARTRATE 50 MG TABLET GT SCH ×4 (06:00→17:06)
[2022-03-01 06:48] LABS: BASOPHILS # (AUTO) 0.1 K/uL (0.0-0.2); BASOPHILS % (AUTO) 0.3 % (0.0-2.0); EOSINOPHILS % (AUTO) 0.2 % (0.0-6.0); HEMATOCRIT 27 % (39-51); HEMOGLOBIN 8.7 g/dL (13.5-17.5); LYMPHOCYTES # (AUTO) 0.6 K/uL (0.8-4.8); LYMPHOCYTES % (AUTO) 3.7 % (20.0-44.0); MEAN CORPUSCULAR HGB CONC 32 g/dl (31.0-36.0); MEAN CORPUSCULAR VOLUME 85 fL (80-96); MONOCYTES # (AUTO) 1.4 K/uL (0.1-1.30); MONOCYTES % (AUTO) 8.7 % (2.0-12.0); NEUTROPHILS % (AUTO) 87.1 % (43.0-81.0); PLATELET COUNT (AUTO) 87 K/uL (150-450); RED BLOOD CELL COUNT(AUTO) 3.15 MIL/uL (4.5-6.0); WHITE BLOOD COUNT (AUTO) 16.1 K/uL (4.3-11.0)
[2022-03-01 06:52] LABS: CALCIUM, SERUM 9.8 mg/dL (8.5-10.1); POTASSIUM 5.7 mmol/L (3.5-5.1)
[2022-03-01 07:12] LABS: CREATININE 11.6 mg/dL (0.6-1.3)
--- NOTE | 2022-03-01 07:24 | NUR ---
RN CLOSING NOTE PATIENT IN ASLEEP, NON VERBAL, ON SIMPLE MASK 8L, TOLERATING WELL, NO S/S OF ACUTE DISTRESS, SATURATION ,TELE MONITOR READING SR HR 89 WITH ELEVATED T WAVE. LHAND#18G, INTACT AND PATENT, RU CHEST PERM CATH REPLACED DRESSING. G TUBE PRESENT RUNNING NEPHRO@65ML/HR, NO RESIDUAL NOTED.ALL DUE MEDS GIVEN. ALL SAFETY MEASURES IN PLACE, BED ALARM ON, BED IN LOW LOCK POSITION, CALL LIGHT AND TABLE WITHIN EASY REACH, SIDE RAILS UP X2. WILL ENDORSE TO MORNING SHIFT FOR UMESH.
--- NOTE | 2022-03-01 07:42 | NUR ---
RN OPENING NOTE RECEIVED PATIENT IN ASLEEP, NON VERBAL, TELE MONITOR READING ST HR 103 WITH ELEVATED T WAVE. LEFT HAND PIV INTACT. RU CHEST PERM CATH C/D/I. GT PATENT AND INTACT. ALL SAFETY MEASURES IN PLACE, BED ALARM ON, BED IN LOW LOCK POSITION, CALL LIGHT AND TABLE WITHIN EASY REACH, SIDE RAILS UP X2. WILL CONTINUE PLAN OF CARE.
[2022-03-01] MEDS: PANTOPRAZOLE 40 MG/PACK PACK GT SCH (07:53)
[2022-03-01 08:00] VITALS: BP 112/62
[2022-03-01] MEDS: LEVETIRACETAM SOL (5 ML) 100 MG/ML UDC GT SCH ×2 (08:25→09:00)
[2022-03-01] MEDS: OLANZAPINE 2.5 MG TABLET GT SCH ×3 (08:26→16:56)
[2022-03-01] MEDS: ZINC SULFATE 220 MG CAPSULE GT SCH ×2 (08:26→09:00)
[2022-03-01] MEDS: VIT B CMPLX 3/FA/VIT C/BIOTIN 1 TAB TABLET GT SCH ×2 (08:26→09:00)
[2022-03-01] MEDS: ASPIRIN 81 MG TAB.CHEW GT SCH (08:26)
[2022-03-01] MEDS: ASCORBIC ACID 500 MG TABLET GT SCH ×2 (08:26→09:00)
[2022-03-01] MEDS: MEROPENEM 500 MG in IV NS 0.9% 50 ML IV SCH ×2 (08:27→21:37)
[2022-03-01] MEDS: CARVEDILOL 6.25 MG TABLET GT SCH ×3 (08:28→16:56)
[2022-03-01] MEDS: LOSARTAN POTASSIUM 25 MG TABLET GT SCH (08:29)
--- NOTE | 2022-03-01 08:30 | NUR ---
RN NOTES RT AT THE BEDSIDE, PATIENT CHANGED FROM SIMPLE MASK TO NASAL CANNULA TITRATED DOWN FROM 8L TO 5L, NOTED 02 SAT @94%, NO SOB NOTED, NOT IN DISTRESS, WILL CONTINUE PLAN OF CARE.
[2022-03-01] MEDS: MINOXIDIL (2.5MG) 2.5 MG TABLET GT SCH ×3 (09:00→16:56)
[2022-03-01] MEDS: PROSOURCE / PROSTAT (PYXIS) 30 ML UDC GT SCH ×2 (09:00→09:06)
[2022-03-01 10:05] LABS: LYMPHOCYTES % (MANUAL) 9 % (16-48); MONOCYTES % (MANUAL) 1 % (0-11.0); NEUTROPHILS % (MANUAL) 90 (42-76)
--- NOTE | 2022-03-01 10:32 | NUR ---
RN NOTED FLUSHED GT FEEDING, UNABLE TO FLUSHED, TRY DECLOGGING MULTIPLE ATTEMPTS, UNABLE TO DECLOGGED, INFORMED MD, AWAITING FOR RESPOND. WILL CONTINUE PLAN OF CARE.
--- NOTE | 2022-03-01 11:17 | NUR ---
RN NOTES NOTED DURING ROUNDS PATIENT NOTED WITH RIGHT UPPER CHEST SKIN TEAR, NOTED PATIENT PULLED OUT RIGHT UPPER PERMACATH DRESSING LAST NIGHT, MD MADE AWARE WHEN MD AT THE BEDSIDE, WOUND CARE CONSULT PLACED. WILL CONTINUE PLAN OF CARE.
--- NOTE | 2022-03-01 11:37 | NUR ---
RN NOTES UNABLE TO ADMINISTER MORNING MEDICATIONS DUE TO GT IS CLOGGED, TRY TO UNCLOGGED MULTIPLE TIMES, MANSI SANTOS MD ON THE BEDSIDE TRIED REPLACING GT BUT UNABLE TO CHANGED, PER MANSI SANTOS MD SHE WILL PLACED A GT CONSULT. WILL CONTINUE PLAN OF CARE.
--- NOTE | 2022-03-01 11:52 | NUR ---
KAMILLE RN NOTE PER MANSI RN HEEL GUMMER OK TO CHANGE KEPPRA TO IV ROUT DUE TO G TUBE IS NOT FUNCTIONING WELL
[2022-03-01 12:00] VITALS: BP 107/68
[2022-03-01] MEDS: LEVETIRACETAM (500MG) 500 MG in IV NS 0.9% 100 ML IV SCH (13:39)
[2022-03-01 16:00] VITALS: BP 109/81
--- NOTE | 2022-03-01 16:57 | NUR ---
RN NOTES NOTED XM=[id number], DENIES ANY CHEST PAIN, NO FACIAL GRIMACING NOTED, NOT IN DISTRESS, WS=830/81, UNABLE TO GIVE 1700 MEDICATIONS DUE TO GT NOT WORKING, INFORMED MANSI TRUCK CRANE OPERATOR HELPER, WITH ORDER TO CONTINUE TO MONITOR FOR NOW, WILL CONTINUE PLAN OF CARE.
--- NOTE | 2022-03-01 16:58 | NUR ---
RN NOTES CALLED PATIENT'S TO GET CONSENT FOR PERMA CATH REPLACEMENT DUE TO RU CHEST PERMACATH IS NOT WORKING, NO ANSWER, LEFT A MESSAGE TO CALL BACK. NO EPISODE OF SEIZURE NOTED. WILL CONTINUE PLAN OF CARE.
[2022-03-01] MEDS: ONDANSETRON HCL/PF 4 MG/2 ML VIAL IVP PRN (17:52)
--- NOTE | 2022-03-01 18:22 | NUR ---
RN NOTES CALLED PATIENT'S , ABLE TO GET CONSENT FOR PERMACATH PLACEMENT. WILL CONTINUE PLAN OF CARE.
--- NOTE | 2022-03-01 18:23 | NUR ---
RN CLOSING NOTE PATIENT IN BED ALERT AND AWAKE, NON VERBAL. ON 4L O2 VIA NASAL CANULA @96%, TOLERATING WELL, NO S/S OF ACUTE DISTRESS, NO SHORTNESS OF BREATH NOTED. NO FACIAL GRIMACING NOTED. TELE MONITOR READING SINUS TACHY HR= 102. LEFT HAND PIV, INTACT AND PATENT,FLUSHES WELL. RU CHEST PERM CATH NOTED INTACT, DRESSING C/D/I. GT TUBE NOTED INTACT. ALL SAFETY MEASURES IN PLACE, BED ALARM ON, BED IN LOW LOCK POSITION, CALL LIGHT AND TABLE WITHIN EASY REACH, SIDE RAILS UP X2. WILL ENDORSE TO WELDING ENGINEER NURSE FOR UMESH.
--- NOTE | 2022-03-01 19:10 | NUR ---
RN OPENING NOTE RECEIVED PATIENT IN Awake, NON VERBAL, ON NC @4L, NO S/S OF ACUTE DISTRESS,TELE MONITOR READING SR/ST HR 103. LHAND #18G, INTACT AND PATENT, RU CHEST PERM CATH FOR DIALYSIS ON M,W,F. INFORMED FROM MORNING NURSE THAT IT DOESN'T WORK. G TUBE CLOGGED. ALL SAFETY MEASURES IN PLACE, BED ALARM ON, BED IN LOW LOCK POSITION, CALL LIGHT AND TABLE WITHIN EASY REACH, SIDE RAILS UP X2. WILL CONTINUE TO MONITOR THROUGHOUT SHIFT.
--- NOTE | 2022-03-01 19:50 | NUR ---
RN NOTE DECLOGGED GT TUBE AND CONTINUED FEEDING
[2022-03-01 20:00] VITALS: BP 123/77
--- NOTE | 2022-03-01 20:35 | NUR ---
RN NOTE PT SATTING 89-91 ON 4L NC, WHEN ASKED PT SHOOK HIS HEAD YES THAT HE FELT CONGESTED. DR BECERRA NOTIFIED ABOUT NASOTRACHEAL SUCTIONING
[2022-03-01] MEDS: HYDROCODONE/APAP 5/325MG TABLET GT PRN (21:46)
[2022-03-01] MEDS: SENNOSIDES 8.6 MG TABLET GT SCH (21:46)
[2022-03-02] VITALS (12 sets, daily range): BP systolic 122–162; BP diastolic 59–88
[2022-03-02] MEDS: METOPROLOL TARTRATE 50 MG TABLET GT SCH ×4 (00:37→19:23)
[2022-03-02] MEDS: LEVETIRACETAM (500MG) 500 MG in IV NS 0.9% 100 ML IV SCH ×2 (01:55→15:01)
--- NOTE | 2022-03-02 05:19 | NUR ---
RN NOTE LAB CALLED WITH RESULLT OF BLOOD CULTURE: GRAM + COCCI. DR BECERRA SAID NO NEW ORDERS
[2022-03-02 06:44] LABS: BASOPHILS % (AUTO) 0.3 % (0.0-2.0); EOSINOPHILS % (AUTO) 0.5 % (0.0-6.0); HEMATOCRIT 26 % (39-51); HEMOGLOBIN 8.3 g/dL (13.5-17.5); LYMPHOCYTES % (AUTO) 6.8 % (20.0-44.0); MEAN CORPUSCULAR HGB CONC 33 g/dl (31.0-36.0); MEAN CORPUSCULAR VOLUME 84 fL (80-96); MONOCYTES # (AUTO) 1.6 K/uL (0.1-1.30); MONOCYTES % (AUTO) 11.1 % (2.0-12.0); NEUTROPHILS # (AUTO) 11.6 K/uL (1.8-8.9); NEUTROPHILS % (AUTO) 81.3 % (43.0-81.0); PLATELET COUNT (AUTO) 85 K/uL (150-450); RED BLOOD CELL COUNT(AUTO) 3.04 MIL/uL (4.5-6.0); WHITE BLOOD COUNT (AUTO) 14.3 K/uL (4.3-11.0)
[2022-03-02 06:52] LABS: CALCIUM, SERUM 10.4 mg/dL (8.5-10.1)
--- NOTE | 2022-03-02 07:00 | NUR ---
RN OPENING NOTE RECEIVED PATIENT IN Awake, NON VERBAL, ON NC @4L, NO S/S OF ACUTE DISTRESS,TELE MONITOR READING SR HR 93. L HAND #18G, INTACT AND PATENT, RU CHEST PERM CATH FOR DIALYSIS ON M,W,F. INFORMED FROM NIGHT NURSE THAT IT DOESN'T WORK. NPO FOR PERMA CATH INSERTION. ALL SAFETY MEASURES IN PLACE,WITH BILATERAL SOFT WRIST RESTRAINT, SKIN AND CIRCULATION CHECKED WITHIN NORMAL . BED ALARM ON, BED IN LOW LOCK POSITION, CALL LIGHT AND TABLE WITHIN EASY REACH, SIDE RAILS UP X2. WILL CONTINUE TO MONITOR THROUGHOUT SHIFT.
--- NOTE | 2022-03-02 07:08 | NUR ---
RN CLOSING NOTE PATIENT IS AWAKE IN BED , NON VERBAL, ON NC @4L, NO S/S OF ACUTE DISTRESS,TELE MONITOR READING SR/ST HR 103. LHAND #18G, INTACT AND PATENT, RU CHEST PERM CATH FOR DIALYSIS ON M,W,F. INFORMED FROM MORNING NURSE THAT IT DOESN'T WORK. G TUBE INTACT AND PATENT. PATIENT HAS BEEN NPO SINCE 429. ALL DUE MEDS GIVEN.ALL SAFETY MEASURES IN PLACE, BED LOCKED IN LOWEST POSITION, CALL LIGHT WITHIN REACH. WILL ENDORSE TO MORNING SHIFT FOR UMESH.
--- NOTE | 2022-03-02 07:14 | NUR ---
RN NOTE CALLED SURGERY ABOUT PATIENT NOT BEING NPO UNTIL [id number] 03/02/22. SPOKE TO DEVAN
[2022-03-02] MEDS: PANTOPRAZOLE 40 MG/PACK PACK GT SCH (07:30)
[2022-03-02 08:46] LABS: CREATININE 13.2 mg/dL (0.6-1.3)
[2022-03-02] MEDS: MINOXIDIL (2.5MG) 2.5 MG TABLET GT SCH ×2 (09:00→17:48)
[2022-03-02] MEDS: OLANZAPINE 2.5 MG TABLET GT SCH ×2 (09:00→17:48)
[2022-03-02] MEDS: VIT B CMPLX 3/FA/VIT C/BIOTIN 1 TAB TABLET GT SCH (09:00)
[2022-03-02] MEDS: LOSARTAN POTASSIUM 25 MG TABLET GT SCH (09:00)
[2022-03-02] MEDS: PROSOURCE / PROSTAT (PYXIS) 30 ML UDC GT SCH (09:00)
[2022-03-02] MEDS: ASCORBIC ACID 500 MG TABLET GT SCH (09:00)
[2022-03-02] MEDS: ZINC SULFATE 220 MG CAPSULE GT SCH (09:00)
[2022-03-02] MEDS: ASPIRIN 81 MG TAB.CHEW GT SCH (09:00)
[2022-03-02] MEDS: CARVEDILOL 6.25 MG TABLET GT SCH ×2 (09:00→19:23)
--- NOTE | 2022-03-02 09:00 | NUR ---
rn notes: notified DR Epifanio Damon procalcitonin 139.4 made aware with npo new order at this time
[2022-03-02] MEDS: MEROPENEM 500 MG in IV NS 0.9% 50 ML IV SCH ×2 (09:37→21:09)
[2022-03-02 10:40] LABS: LYMPHOCYTES % (MANUAL) 6 % (16-48); MONOCYTES % (MANUAL) 9 % (0-11.0); NEUTROPHILS % (MANUAL) 85 (42-76)
[2022-03-02] MEDS ORDERED: LIDOCAINE HCL/MPF 1% 30 ML VIAL IJ ONE (11:09)
[2022-03-02] MEDS ORDERED: IOHEXOL 0 ML IV ONE (11:10)
[2022-03-02] MEDS ORDERED: HEPARIN SODIUM, PORCINE 1,000 UNIT/ML VIAL ONE (11:10)
[2022-03-02] MEDS ORDERED: FENTANYL PF 100MCG/2ML AMPUL ONE (11:58)
--- NOTE | 2022-03-02 12:00 | NUR ---
RN NOTES: PT LEFT FOR PROCEDURE, DIALYSIS CATHETER REPLACEMENT, PT LEFT IN STABLE CONDITION, NPO SINCE 429 SURGERY STAFF AWARE NO S/S OF PAIN OR DISCOMFORT
[2022-03-02] MEDS ORDERED: BACITRACIN ZINC OINT PACKET 1 EA PACKET TP ONE (12:32)
[2022-03-02 12:35] LABS: ABG BASE EXCESS -4.2 mmol/L; ABG OXYGEN SATURATION 98.4 % (92.0-98.5); ABG PCO2 47.8 mmHg (35.0-45.0); ABG PH 7.287 (7.350-7.450); ABG PO2 139.6 mmHg (75.0-100.0); AaDO2 90.6 mmHg; COHb 0.9 % (0.5-1.5); MetHb 0.1 % (0.0-1.5); O2Hb 97.4 % (94.0-97.0); SITE, ABG Right Radial; VENT MODE, BG 2 L N.C.
--- NOTE | 2022-03-02 13:45 | NUR ---
SHRADDHA NOTES: PT IS BACK HAS NEW DIALYSIS CATHETER AT RIGHT IJ, INTACT COVERED WITH DRY DRESSING. NO S/S OF BLEEDING.NO S/S OF PAIN OR DISCOMFORT. V/S 134/92.[id number] Addendum: 03/02/22 at 1648 by RANDALL HARO RN RESPIATORY 18 ON 4 LITER VIA NASAL CANNULA
[2022-03-02 14:14] LABS: ABG BASE EXCESS -4.1 mmol/L; ABG PCO2 62.4 mmHg (35.0-45.0); ABG PH 7.205 (7.350-7.450); AaDO2 99.2 mmHg; COHb 1.3 % (0.5-1.5); MetHb 0.2 % (0.0-1.5); O2Hb 79.8 % (94.0-97.0); VENT MODE, BG 3L NC
--- NOTE | 2022-03-02 14:24 | NUR ---
RN notes: called Rose PRETTY pt is back from the procedure if ok to resume feeding also RD recommended nepro at 75ml/hr x 16 hours. she agreed with new orders
--- NOTE | 2022-03-02 14:42 | NUR ---
RN notes: relayed ABG to DR Vivas with order to transfer to ICU with bipap.Charge nurse made aware
[2022-03-02] MEDS ORDERED: NEPRO 1,000 ML BOTTLE GT PRN (15:00)
--- NOTE | 2022-03-02 15:40 | NUR ---
RN NOTES:: CALLED JAMAR LLANES AND GAVE REPORT SHE SAID TRANSFER NOW TO ICU PER DR GRAY NEED TO PT ON BIPAP IMMEDIATELY, TRANSFERRED PT ON 5 LITER OXYGEN VIA NASAL CANULA, NO SOB NOTED, GT IN PACE RUNNING NEPRO 75 ML/HR,RIGHT IJ DIALYSIS CATHETER IN PLACE, WITH BILATERAL SOFT WRIST RESTRAINT
--- NOTE | 2022-03-02 16:00 | NUR ---
ICU/RN PT TRANSFERRED FROM [place].PLACED ON BI-PAP ORDERED. HD STARTED .NEW HD CATHETER ON RIGHT IJ. PM CARE PROVIDED.PT HAS DARK STOOL. G-TUBE RESTARTED.DUE MEDS ARE GIVEN ORDERED.REPOSITION FOR COMFORT.CONTINUE MONITORING.
[2022-03-02] MEDS: NEPRO 1,000 ML BOTTLE GT PRN (16:45)
--- NOTE | 2022-03-02 19:10 | NUR ---
ICU/RN HD IS OVER 2L OUTPUT. PT IS ON BIPAP. ABG AT 8 PM ORDERED.
--- NOTE | 2022-03-02 19:10 | NUR ---
RN OPENING NOTES RECEIVED PATIENT ON BED, ALERT, NON VERBAL. PT. ON BIPAP SETTINGS TOLERATED WELL, SATING AT 99%. AFEBRILE, NO S/S OF DISTRESS NOTED. WITH LEFT HAND PERIPHERAL LINE, PATENT, INTACT, FLUSHED WITH NS. NO S/S OF INFILTRATION NOTED. RIGHT CHEST WALL PERMA CATH HD SITE. GTUBE PATENT INTACT, VERIFIED PLACEMENT BY AUSCULTATION, NOTED WITH 10ML RESIDUAL UPON ASPIRATION, RUNNING WITH NEPRHO @ 75 ML/HR. REPOSITION PATIENT EVERY 2 HRS. ON BILATERAL SOFT WRIST RESTRAINT REASSESS AND RELEASE Q2HRS FOR CIRCULATION. ALL SAFETY PRECAUTION PROVIDED, BED IN LOWEST POSITION, LOCKED. BED ALARM ARMED. CALL LIGHT WITH IN REACH. CONTINUE TO MONITOR.
[2022-03-02] MEDS: ANCEF 1 GM/50 ML D5W IV SCH ×2 (20:39)
[2022-03-02 21:36] LABS: ABG BASE EXCESS 1.3 mmol/L; ABG PCO2 48.7 mmHg (35.0-45.0); ABG PH 7.363 (7.350-7.450); ABG PO2 99.2 mmHg (75.0-100.0); COHb 0.7 % (0.5-1.5); MetHb 0.2 % (0.0-1.5); O2Hb 96.1 % (94.0-97.0); SITE, ABG Right Radial; VENT MODE, BG ST 15 15/5 60%
[2022-03-02] MEDS: VANCOMYCIN POST DIALYSIS 500MG IV PRN ×2 (21:46)
[2022-03-02] MEDS: SENNOSIDES 8.6 MG TABLET GT SCH (22:22)
[2022-03-03] VITALS (20 sets, daily range): BP systolic 94–151; BP diastolic 35–90
[2022-03-03] MEDS: LEVETIRACETAM (500MG) 500 MG in IV NS 0.9% 100 ML IV SCH (00:33)
[2022-03-03] MEDS: METOPROLOL TARTRATE 50 MG TABLET GT SCH ×4 (00:33→17:03)
[2022-03-03] MEDS: IV NS 0.9% 250 ML IV PRN (02:07)
[2022-03-03] MEDS: ANCEF 1 GM/50 ML D5W IV SCH ×2 (04:47)
[2022-03-03 05:16] LABS: BASOPHILS % (AUTO) 0.1 % (0.0-2.0); EOSINOPHILS % (AUTO) 1.4 % (0.0-6.0); HEMATOCRIT 24 % (39-51); HEMOGLOBIN 7.9 g/dL (13.5-17.5); LYMPHOCYTES # (AUTO) 0.5 K/uL (0.8-4.8); LYMPHOCYTES % (AUTO) 4.1 % (20.0-44.0); MEAN CORPUSCULAR HGB CONC 33 g/dl (31.0-36.0); MEAN CORPUSCULAR VOLUME 83 fL (80-96); MONOCYTES # (AUTO) 1.1 K/uL (0.1-1.30); MONOCYTES % (AUTO) 9.1 % (2.0-12.0); NEUTROPHILS # (AUTO) 10.6 K/uL (1.8-8.9); NEUTROPHILS % (AUTO) 85.3 % (43.0-81.0); PLATELET COUNT (AUTO) 88 K/uL (150-450); RED BLOOD CELL COUNT(AUTO) 2.88 MIL/uL (4.5-6.0); WHITE BLOOD COUNT (AUTO) 12.4 K/uL (4.3-11.0)
[2022-03-03 05:17] LABS: CALCIUM, SERUM 10.1 mg/dL (8.5-10.1); POTASSIUM 4.2 mmol/L (3.5-5.1)
[2022-03-03 05:27] LABS: CREATININE 8.2 mg/dL (0.6-1.3)
[2022-03-03] MEDS: ASPIRIN 81 MG TAB.CHEW GT SCH (08:30)
[2022-03-03] MEDS: VIT B CMPLX 3/FA/VIT C/BIOTIN 1 TAB TABLET GT SCH (08:30)
[2022-03-03] MEDS: LOSARTAN POTASSIUM 25 MG TABLET GT SCH (08:30)
[2022-03-03] MEDS: PANTOPRAZOLE 40 MG/PACK PACK GT SCH (08:30)
[2022-03-03] MEDS: ASCORBIC ACID 500 MG TABLET GT SCH (08:30)
[2022-03-03] MEDS: ZINC SULFATE 220 MG CAPSULE GT SCH (08:30)
[2022-03-03] MEDS: MINOXIDIL (2.5MG) 2.5 MG TABLET GT SCH ×2 (08:31→17:04)
[2022-03-03] MEDS: OLANZAPINE 2.5 MG TABLET GT SCH ×2 (08:31→17:04)
[2022-03-03] MEDS: CARVEDILOL 6.25 MG TABLET GT SCH ×2 (08:31→17:04)
[2022-03-03] MEDS: LEVETIRACETAM SOL (5 ML) 100 MG/ML UDC GT SCH ×2 (08:33→21:58)
--- NOTE | 2022-03-03 08:39 | NUR ---
ICU/RN TEMP 100.4. BLANKET REMOVED, ICE PACKS APPLIED TO GROIN AND ARM PITS.
--- NOTE | 2022-03-03 09:07 | NUR ---
ICU/RN HD STARTING. WILL HOLD IV ABX UNTIL HD IS COMPLETED.
[2022-03-03 09:10] LABS: ABG BASE EXCESS -1.1 mmol/L; ABG OXYGEN SATURATION 90.7 % (92.0-98.5); ABG PCO2 43.2 mmHg (35.0-45.0); ABG PH 7.367 (7.350-7.450); ABG PO2 62.4 mmHg (75.0-100.0); AaDO2 173.1 mmHg; COHb 1.1 % (0.5-1.5); MetHb 0.1 % (0.0-1.5); O2Hb 89.6 % (94.0-97.0); SITE, ABG Right Radial; VENT MODE, BG 5l nc
--- NOTE | 2022-03-03 09:10 | NUR ---
ICU/RN MRSA IN THE BLOOD, DR. LESLIE NOTIFIED.
--- NOTE | 2022-03-03 09:14 | NUR ---
WOUND CARE CONSULT: PT HAVING PROCEDURE AT THIS TIME. PT NOT TURNED FOR FULL SKIN ASSESSMENT. RT CHEST AREA HAS RAISED AREA AND CRUSTED WOUND. DR BONILLA CALLED FOR SURGICAL CONSULT. DISCUSSED SKIN PROTECTION WITH NURSING STAFF. IN AGREEMENT WITH PLAN OF CARE.
[2022-03-03] MEDS: PROSOURCE / PROSTAT (PYXIS) 30 ML UDC GT SCH (09:30)
[2022-03-03 10:42] LABS: BAND % (MANUAL) 3 % (0.0-5.0); EOSINOPHILS % (MANUAL) 3 % (0-4); LYMPHOCYTES % (MANUAL) 7 % (16-48); MONOCYTES % (MANUAL) 4 % (0-11.0); NEUTROPHILS % (MANUAL) 83 (42-76)
--- NOTE | 2022-03-03 12:00 | NUR ---
ICU/RN TUBE FEEDING STOPPED. WILL BE RESUMED AT 2000 PER ORDER OF TUBE FEEDING X16HR/24HR.
--- NOTE | 2022-03-03 12:30 | NUR ---
ICU/RN HD COMPLETED, PT TOLERATED WELL. VS STABLE. 2,000ML REMOVED.
[2022-03-03] MEDS: MEROPENEM 500 MG in IV NS 0.9% 50 ML IV SCH ×2 (12:40→22:01)
[2022-03-03] MEDS: ACETAMINOPHEN 650 MG/20.3 ML UDC GT PRN ×2 (13:04→21:59)
--- NOTE | 2022-03-03 13:07 | NUR ---
ICU/RN TEMP 100.9. DR. LESLIE NOTIFED. TYLENOL GTUBE GIVEN, COOLING MEASURES IN PLACE.
--- NOTE | 2022-03-03 16:50 | NUR ---
ICU/RN LARGE BLACK LIQUID BM. PT CLEANED. DR. LESLIE NOTIFIED. STAT H/H ORDER RECEIVED.
[2022-03-03 18:21] LABS: HEMOGLOBIN 7.5 g/dL (13.5-17.5)
[2022-03-03] MEDS ORDERED: PANTOPRAZOLE 40 MG VIAL IV SCH (18:30)
--- NOTE | 2022-03-03 18:47 | NUR ---
ICU/RN REPORT GIVEN AT BEDSIDE TO NIC LLANES FOR UMESH. PT STABLE THROUGHOUT TRANSFER AND PLACED IN ROOM 115-1. PT REMAINS IN 5L O2 NC.
[2022-03-03] MEDS ORDERED: SILVER NITRATE APPLICATOR 1 EA BOX TP SCH (19:30)
[2022-03-03] MEDS: SENNOSIDES 8.6 MG TABLET GT SCH (21:58)
[2022-03-03] MEDS: NEPRO 1,000 ML BOTTLE GT PRN (23:33)
[2022-03-04] VITALS (7 sets, daily range): BP systolic 85–121; BP diastolic 45–69
[2022-03-04] MEDS: METOPROLOL TARTRATE 50 MG TABLET GT SCH ×4 (00:24→17:59)
[2022-03-04] MEDS: ACETAMINOPHEN 650 MG/20.3 ML UDC GT PRN ×3 (06:07→23:32)
[2022-03-04 06:40] LABS: BASOPHILS % (AUTO) 0.3 % (0.0-2.0); EOSINOPHILS % (AUTO) 0.5 % (0.0-6.0); HEMATOCRIT 26 % (39-51); LYMPHOCYTES % (AUTO) 6.2 % (20.0-44.0); MEAN CORPUSCULAR HGB CONC 32 g/dl (31.0-36.0); MEAN CORPUSCULAR VOLUME 84 fL (80-96); MONOCYTES # (AUTO) 1.7 K/uL (0.1-1.30); MONOCYTES % (AUTO) 10.3 % (2.0-12.0); NEUTROPHILS # (AUTO) 13.7 K/uL (1.8-8.9); NEUTROPHILS % (AUTO) 82.7 % (43.0-81.0); PLATELET COUNT (AUTO) 110 K/uL (150-450); RED BLOOD CELL COUNT(AUTO) 3.03 MIL/uL (4.5-6.0); WHITE BLOOD COUNT (AUTO) 16.6 K/uL (4.3-11.0)
--- NOTE | 2022-03-04 06:45 | NUR ---
RN CLOSING NOTES PATIENT IN BED, ALERTX0, NON VERBAL. ON O2 AT 5L/MIN VIA N/C AND PT TOLERATED WELL O2 SAT 97%. IV ACCESS ON LEFT HAND #18G INTACT AND PATENT. NO S/S OF INFILTRATIONS. D. RIGHT CHEST WALL PERMA CATH HD SITE INTACT. TYLENOL GIVEN AT 0607 FOR FEVER 102.1 F. GTUBE WELL TOLERATED. RUNNING NEPRO AT 75CC/HR. REPOSITION Q 2 HRS. ON BILATERAL SOFT WRIST RESTRAINT. REASSESSED Q 2HOURS TO CHECK CIRCULATION. ALL DUE MEDS GIVEN ORDERED. ALL SAFETY MEASURES IN PLACE, BED IN LOWEST POSITION AND LOCKED. BED ALARM ON. SIDE RAILS UP X3, PLACE CALL LIGHT WITH IN REACH. CONTINUE ENDORSE TO MORNING SHIFT NURSE.
[2022-03-04 07:12] LABS: CALCIUM, SERUM 10.7 mg/dL (8.5-10.1); CREATININE 5.9 mg/dL (0.6-1.3); POTASSIUM 3.8 mmol/L (3.5-5.1)
--- NOTE | 2022-03-04 07:20 | NUR ---
KAMILLE RN OPENING NOTES: RECEIVED PATIENT IN ASLEEP, NON VERBAL, ON NC @5L, NO S/S OF ACUTE DISTRESS,TELE MONITOR READING ST HR 112. L HAND #18G, INTACT AND PATENT, R IJ PERMA CATH FOR DIALYSIS .GTF OF NEPRO RUNNING AT 75 ML/HR.NO RESIDUAL NOTED.HOB ELEVATED. ALL SAFETY MEASURES IN PLACE,WITH BILATERAL SOFT WRIST RESTRAINT, SKIN AND CIRCULATION CHECKED WITHIN NORMAL . BED ALARM ON, BED IN LOW LOCK POSITION, CALL LIGHT AND TABLE WITHIN EASY REACH, SIDE RAILS UP X2. WILL CONTINUE TO MONITOR THROUGHOUT SHIFT.
[2022-03-04] MEDS ORDERED: PANTOPRAZOLE 40 MG/PACK PACK PO SCH (09:00)
[2022-03-04] MEDS: LEVETIRACETAM SOL (5 ML) 100 MG/ML UDC GT SCH ×2 (09:33→23:05)
[2022-03-04] MEDS: OLANZAPINE 2.5 MG TABLET GT SCH ×2 (09:33→17:00)
[2022-03-04] MEDS: MEROPENEM 500 MG in IV NS 0.9% 50 ML IV SCH ×2 (09:33→23:05)
[2022-03-04] MEDS: PANTOPRAZOLE 40 MG/PACK PACK GT SCH ×2 (09:34→17:16)
[2022-03-04] MEDS: MINOXIDIL (2.5MG) 2.5 MG TABLET GT SCH ×2 (09:35→17:00)
[2022-03-04] MEDS: ASPIRIN 81 MG TAB.CHEW GT SCH (09:37)
[2022-03-04] MEDS: LOSARTAN POTASSIUM 25 MG TABLET GT SCH (09:37)
[2022-03-04] MEDS: ZINC SULFATE 220 MG CAPSULE GT SCH (09:38)
[2022-03-04] MEDS: ASCORBIC ACID 500 MG TABLET GT SCH (09:38)
[2022-03-04] MEDS: VIT B CMPLX 3/FA/VIT C/BIOTIN 1 TAB TABLET GT SCH (09:39)
[2022-03-04] MEDS: CARVEDILOL 6.25 MG TABLET GT SCH ×2 (09:39→17:00)
[2022-03-04] MEDS: PROSOURCE / PROSTAT (PYXIS) 30 ML UDC GT SCH (09:43)
--- NOTE | 2022-03-04 10:46 | NUR ---
RN NOTES: PT STARTED DIALYSIS . PT IN STABLE CONDITION
--- NOTE | 2022-03-04 12:00 | NUR ---
RN NOTES; HELD METOPROLOL PT IS RECEIVING DIALYSIS BP 110/64
--- NOTE | 2022-03-04 12:30 | NUR ---
RN NOTES: DIALYSIS COMPLETED WITHOUT COMPLICATION 1 LITER REMOVED
[2022-03-04] MEDS ORDERED: VANCOMYCIN 500 MG in IV D5W 100ml IV ONE (15:00)
--- NOTE | 2022-03-04 17:20 | NUR ---
RN NOTES" NOTIFIED DR TIAGO IBRAHIM THE STOOL IS BLACK TARRY WITH ORDER OF STAT H&H AND SEND STOOL FOR OB
--- NOTE | 2022-03-04 17:30 | NUR ---
RN NOTES: NOTIFIED DR IBRAHIM LAURIE WAS 85/54, ELEVATED THE FEET BP 90/52, WITH ORDER OF BOLUS NS 250 ML
[2022-03-04 17:45] LABS: HEMOGLOBIN 7.6 g/dL (13.5-17.5)
[2022-03-04] MEDS ORDERED: MIDODRINE HCL (5MG) 5 MG TABLET PO PRN (18:00)
[2022-03-04] MEDS ORDERED: IV NS 0.9% 250 ML IV ONE (18:00)
--- NOTE | 2022-03-04 19:25 | NUR ---
RN CLOSING NOTES PATIENT IN BED, ALERTX0, NON VERBAL. ON O2 AT 5L/MIN VIA N/C AND PT TOLERATED WELL O2 SAT 97%. IV ACCESS ON LEFT HAND #18G INTACT AND PATENT. NO S/S OF INFILTRATIONS. D. RIGHT CHEST WALL PERMA CATH HD SITE INTACT. TYLENOL GIVEN AT 0607 FOR FEVER 102.1 F. GTUBE WELL TOLERATED. RUNNING NEPRO AT 75CC/HR. REPOSITION Q 2 HRS. ON BILATERAL SOFT WRIST RESTRAINT. REASSESSED Q 2HOURS TO CHECK CIRCULATION. ALL DUE MEDS GIVEN ORDERED. ALL SAFETY MEASURES IN PLACE, BED IN LOWEST POSITION AND LOCKED. BED ALARM ON. SIDE RAILS UP X3, PLACE CALL LIGHT WITH IN REACH. ENDORSE TO CARD PUNCHER RN FOR UMESH
[2022-03-04 21:32] LABS: BAND % (MANUAL) 3 % (0.0-5.0); LYMPHOCYTES % (MANUAL) 6 % (16-48); MONOCYTES % (MANUAL) 6 % (0-11.0); NEUTROPHILS % (MANUAL) 85 (42-76)
[2022-03-04] MEDS: ONDANSETRON HCL/PF 4 MG/2 ML VIAL IVP PRN (23:06)
[2022-03-04] MEDS: SENNOSIDES 8.6 MG TABLET GT SCH (23:06)
--- NOTE | 2022-03-04 23:06 | NUR ---
RN NOTE PT HAD EPISODE OF VOMITING. PT ADMINISTERED ZOFRAN 4MG IVP.
--- NOTE | 2022-03-04 23:32 | NUR ---
RN NOTE PT NOTED TO HAVE TEMPERATURE OF 100.2. TYLENOL 650 MG ADMINISTERED.
[2022-03-05] VITALS: BP 116/61
[2022-03-05] MEDS: METOPROLOL TARTRATE 50 MG TABLET GT SCH ×4 (01:46→17:06)
[2022-03-05 04:00] VITALS: BP 125/70
[2022-03-05] MEDS: ACETAMINOPHEN 650 MG/20.3 ML UDC GT PRN ×2 (05:34→17:05)
--- NOTE | 2022-03-05 05:34 | NUR ---
RN NOTE PT NOTED TO HAVE TEMPERATURE OF 100.5. TYLENOL 650 MG ADMINISTERED.
[2022-03-05 07:00] LABS: BASOPHILS % (AUTO) 0.2 % (0.0-2.0); EOSINOPHILS % (AUTO) 1.6 % (0.0-6.0); HEMATOCRIT 22 % (39-51); HEMOGLOBIN 7.1 g/dL (13.5-17.5); LYMPHOCYTES # (AUTO) 1.2 K/uL (0.8-4.8); LYMPHOCYTES % (AUTO) 5.8 % (20.0-44.0); MEAN CORPUSCULAR HGB CONC 32 g/dl (31.0-36.0); MEAN CORPUSCULAR VOLUME 86 fL (80-96); MONOCYTES # (AUTO) 2.1 K/uL (0.1-1.30); MONOCYTES % (AUTO) 10.1 % (2.0-12.0); NEUTROPHILS # (AUTO) 16.9 K/uL (1.8-8.9); NEUTROPHILS % (AUTO) 82.3 % (43.0-81.0); PLATELET COUNT (AUTO) 122 K/uL (150-450); RED BLOOD CELL COUNT(AUTO) 2.58 MIL/uL (4.5-6.0); WHITE BLOOD COUNT (AUTO) 20.5 K/uL (4.3-11.0)
--- NOTE | 2022-03-05 07:03 | NUR ---
ICT BUSINESS ANALYST CLOSING NOTE PT REMAINS IN BED, OPENS EYES, NON-VERBAL, NOTED TO NOD HEAD WHEN ASKED YES OR NO QUESTIONS. PT ON 5L NC WITH O2SAT AT 99%-100%; NO S/S OF RESP DISTRESS, NO SOB OR COUGH, NON-LABORED AND EQUAL BREATHING. PT ATTACHED TO EXTERNAL MONITOR, SR-ST WITH HR RANGING FROM 99-120. RCW PERMACATH DRESSING C/D/I. IV ACCESS LEFT HAND 18G INTACT AND PATENT, FLUSHES EASILY WITH NO RESISTANCE; NO MEDS/FLUIDS INFUSING THROUGH IT. GTD C/D/I WITH NEPRO AT 75 ML/HR; VOMITING CEASED AFTER ZOFRAN WAS GIVEN. ALL DUE MEDS ADMINISTERED DURING THE NIGHT. BED IN LOWEST POSITION, CALL LIGHT WITHIN REACH, SIDE RAILS UP X3. ALL DUE MEDS ADMINISTERED DURING THE NIGHT. BED IN LOWEST POSITION, CALL LIGHT WITHIN REACH, SIDE RAILS UP X3. WILL ENDORSE TO DAYSHIFT NURSE TO CONTINUE CARE.
[2022-03-05 07:35] LABS: ALBUMIN 2.6 g/dL (3.4-5.0); BILIRUBIN,TOTAL 0.3 mg/dL (0.2-1.0); CALCIUM, SERUM 10.6 mg/dL (8.5-10.1); CREATININE 5.4 mg/dL (0.6-1.3); POTASSIUM 4.2 mmol/L (3.5-5.1); TOTAL PROTEIN, SERUM 7.4 g/dL (6.4-8.2)
[2022-03-05 08:00] VITALS: BP 118/68
--- NOTE | 2022-03-05 08:08 | NUR ---
RN NOTE PT RECEIVED IN BED. ON O2 VIA NC @ 5L, TOLERATING WELL. NGT IN PLACE WITH FEEDING NEPRO @ 75CC/HR. WITH L HAND G [address] RCW PERMACATH, DRESSING DRY AND INTACT. ASPIRATION AND SAFETY MEASURES MAINTAINED. WILL CONTINUE TO MONITOR.
[2022-03-05] MEDS: ZINC SULFATE 220 MG CAPSULE GT SCH (09:12)
[2022-03-05] MEDS: PANTOPRAZOLE 40 MG/PACK PACK GT SCH ×2 (09:12→17:05)
[2022-03-05] MEDS: OLANZAPINE 2.5 MG TABLET GT SCH ×2 (09:12→17:05)
[2022-03-05] MEDS: ASCORBIC ACID 500 MG TABLET GT SCH (09:12)
[2022-03-05] MEDS: VIT B CMPLX 3/FA/VIT C/BIOTIN 1 TAB TABLET GT SCH (09:13)
[2022-03-05] MEDS: CARVEDILOL 6.25 MG TABLET GT SCH ×2 (09:13→17:00)
[2022-03-05] MEDS: ASPIRIN 81 MG TAB.CHEW GT SCH (09:14)
[2022-03-05] MEDS: LOSARTAN POTASSIUM 25 MG TABLET GT SCH (09:14)
[2022-03-05] MEDS: MINOXIDIL (2.5MG) 2.5 MG TABLET GT SCH ×2 (09:15→17:00)
[2022-03-05] MEDS: PROSOURCE / PROSTAT (PYXIS) 30 ML UDC GT SCH (09:16)
[2022-03-05] MEDS: LEVETIRACETAM SOL (5 ML) 100 MG/ML UDC GT SCH ×2 (09:21→20:46)
[2022-03-05] MEDS: MEROPENEM 500 MG in IV NS 0.9% 50 ML IV SCH ×2 (09:23→20:46)
[2022-03-05 12:00] VITALS: BP 134/83
[2022-03-05 12:04] LABS: BAND % (MANUAL) 4 % (0.0-5.0); LYMPHOCYTES % (MANUAL) 10 % (16-48); MONOCYTES % (MANUAL) 6 % (0-11.0); NEUTROPHILS % (MANUAL) 80 (42-76)
--- NOTE | 2022-03-05 14:19 | NUR ---
RN NOTE PT S/P HD WITH 2L FLUIDS REMOVED. PT TOLERATED HD WELL. V/S STABLE. WILL CONT TO MONITOR.
[2022-03-05 16:00] VITALS: BP 88/41
[2022-03-05 18:54] LABS: ABG BASE EXCESS 1.4 mmol/L; ABG OXYGEN SATURATION 95.3 % (92.0-98.5); ABG PCO2 49.7 mmHg (35.0-45.0); ABG PH 7.357 (7.350-7.450); COHb 1.8 % (0.5-1.5); MetHb 0.1 % (0.0-1.5); O2Hb 93.5 % (94.0-97.0); SITE, ABG Right Radial; VENT MODE, BG NASAL CANNULA
[2022-03-05 18:54] LABS: ABG BASE EXCESS -3.1 mmol/L; ABG OXYGEN SATURATION 94.5 % (92.0-98.5); ABG PCO2 52.1 mmHg (35.0-45.0); ABG PH 7.275 (7.350-7.450); ABG PO2 80.9 mmHg (75.0-100.0); AaDO2 144.4 mmHg; COHb 1.2 % (0.5-1.5); O2Hb 93.4 % (94.0-97.0); SITE, ABG Right Radial; VENT MODE, BG NC 40%
[2022-03-05 18:54] LABS: ABG BASE EXCESS -0.3 mmol/L; ABG OXYGEN SATURATION 97.4 % (92.0-98.5); ABG PCO2 39.4 mmHg (35.0-45.0); ABG PH 7.408 (7.350-7.450); ABG PO2 96.6 mmHg (75.0-100.0); COHb 1.5 % (0.5-1.5); MetHb 0.3 % (0.0-1.5); O2Hb 95.6 % (94.0-97.0); SITE, ABG Right Radial
--- NOTE | 2022-03-05 19:10 | NUR ---
RN NOTES PATIENT IN BED, ALERTX0, NON VERBAL. ON O2 AT 5L/MIN VIA N/C AND PT TOLERATED WELL O2 SAT 97%. IV ACCESS ON LEFT HAND #18G INTACT AND PATENT. NO S/S OF INFILTRATIONS.WITH RIGHT CHEST WALL PERMA CATH HD SITE INTACT. GTUBE WELL TOLERATED. RUNNING NEPRO AT 75CC/HR. REPOSITION Q 2 HRS. ON BILATERAL SOFT WRIST RESTRAINT. REASSESSED Q 2HOURS TO CHECK CIRCULATION. ALL DUE MEDS GIVEN ORDERED. ALL SAFETY MEASURES IN PLACE, BED IN LOWEST POSITION AND LOCKED. BED ALARM ON. SIDE RAILS UP X3, PLACE CALL LIGHT WITH IN REACH. ENDORSE TO CAR MANAGER RN FOR UMESH
--- NOTE | 2022-03-05 19:14 | NUR ---
RN NOTE PT RECEIVED IN BED. ON O2 VIA NC @ 5L, TOLERATING WELL. NGT IN PLACE WITH FEEDING NEPRO @ 75CC/HR. WITH L HAND G [address] RCW PERMACATH, DRESSING DRY AND INTACT. ASPIRATION AND SAFETY MEASURES MAINTAINED. DUE MEDS GIVEN. AM/PM CARE DONE. POST HD WITH 2L OF FLUIDS REMOVED. WILL CONTINUE TO MONITOR.
[2022-03-05 20:00] VITALS: BP 108/70
[2022-03-05] MEDS: SENNOSIDES 8.6 MG TABLET GT SCH (21:26)
[2022-03-06] VITALS (9 sets, daily range): BP systolic 90–123; BP diastolic 49–75
[2022-03-06] MEDS: ACETAMINOPHEN 650 MG/20.3 ML UDC GT PRN ×2 (00:43→12:11)
[2022-03-06] MEDS: METOPROLOL TARTRATE 50 MG TABLET GT SCH ×4 (00:43→18:00)
--- NOTE | 2022-03-06 06:30 | NUR ---
RN NOTES HEMODIALYSIS STARTED BY HD NURSE. PATIENT COMFORTABLE IN BED NO DISTRESS AT THIS TIME
--- NOTE | 2022-03-06 07:00 | NUR ---
RN NOTES PATENT REMAINS STABLE NO SIGNIFICANT CHANGES.WITH IV ACCESS AT L HAND # 18 PATENT FLUSHES WELL. GT INTACT CONNECTED TO CONTINUOS FEEDING. R CHEST WALL INTACT NO BLEEDING. STILL ON HD TOLERATION WELL. ALL SAFETY MEASURES IN PLACE. HOB ELEVATED. CALL LIGHT WITHIN REACH. WILL ENDORSED TO MORNING SHIFT FOR UMESH
[2022-03-06 07:41] LABS: BASOPHILS % (AUTO) 0.2 % (0.0-2.0); LYMPHOCYTES # (AUTO) 1.2 K/uL (0.8-4.8); LYMPHOCYTES % (AUTO) 6.1 % (20.0-44.0); MEAN CORPUSCULAR HGB CONC 32 g/dl (31.0-36.0); MEAN CORPUSCULAR VOLUME 86 fL (80-96); MONOCYTES # (AUTO) 1.7 K/uL (0.1-1.30); MONOCYTES % (AUTO) 8.8 % (2.0-12.0); NEUTROPHILS # (AUTO) 16.2 K/uL (1.8-8.9); NEUTROPHILS % (AUTO) 81.9 % (43.0-81.0); PLATELET COUNT (AUTO) 118 K/uL (150-450); RED BLOOD CELL COUNT(AUTO) 2.13 MIL/uL (4.5-6.0); WHITE BLOOD COUNT (AUTO) 19.7 K/uL (4.3-11.0)
--- NOTE | 2022-03-06 07:54 | NUR ---
RN NOTES RECEIVED PATIENT GETTING HD AT THIS TIME ON RIGHT UPPER CHEST PERMA CATH IN INTACT. PATIENT STABLE , ON NC-5L, NO ACUTE RESPIRATORY DISTRESS, PATIENT AWAKE, BUT UNABLE TO VERBALIZE NEEDS, BUT FOLLOW UP. HR-96, BP 102/58, T-99.7f, ALSO GET CALL FROM LAB HEMOGLOBIN LEVEL IS 5.8, GET ORDER ONE UNITS OF RBS PER HOSPITALIST DR LESLIE. ORDER TAKEN AND CARRIED OUT. PATIENT TOTAL CARE, RUNNING NGT NEPRO @75 ML/HR, NO RESIDUAL. KEEP HOB ELEVATED FOR ASPIRATION PRECAUTION. RECHECKED BILATERAL WRIST RESTRAIN CIRCULATION Q 2 HR. ASSIST TURN AND REPOSTION Q 2 HR. PATIENT USING DIAPER, SKIN INTACT. WILL FOLLOW UP.
[2022-03-06 08:06] LABS: ALBUMIN 2.3 g/dL (3.4-5.0); BILIRUBIN,TOTAL 0.2 mg/dL (0.2-1.0); CALCIUM, SERUM 9.4 mg/dL (8.5-10.1); CREATININE 3.3 mg/dL (0.6-1.3); POTASSIUM 3.2 mmol/L (3.5-5.1); TOTAL PROTEIN, SERUM 6.6 g/dL (6.4-8.2)
[2022-03-06 08:07] LABS: HEMATOCRIT 18 % (39-51); HEMOGLOBIN 5.7 g/dL (13.5-17.5)
[2022-03-06] MEDS: LOSARTAN POTASSIUM 25 MG TABLET GT SCH (08:34)
[2022-03-06] MEDS: CARVEDILOL 6.25 MG TABLET GT SCH ×2 (08:34→17:15)
[2022-03-06] MEDS: MINOXIDIL (2.5MG) 2.5 MG TABLET GT SCH ×3 (09:00→16:53)
--- NOTE | 2022-03-06 09:30 | NUR ---
rn notes finished hd at this time output was 1.5 l, patient stable. due medication administwred. get order of midline insertion.
[2022-03-06] MEDS: PANTOPRAZOLE 40 MG/PACK PACK GT SCH ×2 (09:54→17:15)
[2022-03-06] MEDS: ASCORBIC ACID 500 MG TABLET GT SCH (09:54)
[2022-03-06] MEDS: VIT B CMPLX 3/FA/VIT C/BIOTIN 1 TAB TABLET GT SCH (09:54)
[2022-03-06] MEDS: ZINC SULFATE 220 MG CAPSULE GT SCH (09:54)
[2022-03-06] MEDS: ASPIRIN 81 MG TAB.CHEW GT SCH (09:54)
[2022-03-06] MEDS: OLANZAPINE 2.5 MG TABLET GT SCH ×2 (09:54→17:15)
[2022-03-06] MEDS: MEROPENEM 500 MG in IV NS 0.9% 50 ML IV SCH ×2 (10:04→20:42)
[2022-03-06] MEDS: PROSOURCE / PROSTAT (PYXIS) 30 ML UDC GT SCH (10:09)
[2022-03-06] MEDS: NEPRO 1,000 ML BOTTLE GT PRN (10:29)
[2022-03-06] MEDS: LEVETIRACETAM SOL (5 ML) 100 MG/ML UDC GT SCH ×2 (10:43→20:42)
[2022-03-06] MEDS: VANCOMYCIN POST DIALYSIS 500MG IV PRN ×2 (12:11)
[2022-03-06 13:44] LABS: EOSINOPHILS % (MANUAL) 2 % (0-4); LYMPHOCYTES % (MANUAL) 5 % (16-48); MONOCYTES % (MANUAL) 2 % (0-11.0); NEUTROPHILS % (MANUAL) 91 (42-76)
--- NOTE | 2022-03-06 13:49 | NUR ---
rn notes started one unit of blood transfusion at this time on VIJAY midline intact, t-99.2F, p-111, bp 90/54, r-18, o2- 5L- 96%, no acute respiratory distress. will follow up.
--- NOTE | 2022-03-06 14:05 | NUR ---
rn notes T_99.4F, p-120, bp 94/52, r-20, no acute respiratory distress. patient cam amd cooperative, increase blood infusion 120 ml/hr on VIJAY midline intact. will follow up.
--- NOTE | 2022-03-06 15:00 | NUR ---
RN NOTES PATIENT STABLE AWAKE, REFUSED PAIN, T-98.5F, P-103, BP-105/61, R-18, NO ACUTE RESPIRATORY DISTRESS, CONTINUING BLOOD TRANSFUSION @120ML/HR INTACT ON VIJAY MIDLINE.
--- NOTE | 2022-03-06 16:37 | NUR ---
RN NOTES FINISHED BLOOD TRANSFUSION AT THIS TIME, PATIENT AWAKE, FOLLOWING COMMAND, ABLE TO VERBALIZE NEEDS, T-98.8F, P-108, BP 123/75, O2-100%, R-18. PATIENT HAS NO SOB NOTED, REFUSING PAIN. WILL FOLLOW UP.
--- NOTE | 2022-03-06 18:30 | NUR ---
RN NOTES PM CARE DONE,DUE MEDICATION ADMINISTERED, PATIENT STABLE, NO ACUTE RESPIRATORY DISTRESS, REFUSED PAIN. TOLERATING GTF WELL, ASSIST TURN AND REPOSTION Q 2 HR. CALL LIGHT WITHIN TO REACH. ENDORSED ONCOMING NURSE UMESH.
--- NOTE | 2022-03-06 19:15 | NUR ---
RN NOTES PATIENT IN BED, ALERTX1, ABLER TO MAKE NEEDS KNOWN. ON O2 AT 5L/MIN VIA N/C AND PT TOLERATED WELL O2 SAT 97%. IV ACCESS ON LEFT HAND, VIJAY MIDLINE #18G INTACT AND PATENT. S/P 1 UNIT BLOOD TRANSFUSION NO S/S OF INFILTRATIONS.WITH RIGHT CHEST WALL PERMA CATH HD SITE INTACT. GTUBE WELL TOLERATED. RUNNING NEPRO AT 75CC/HR. ON EXTERNAL MONITOR SINUS RHYTHM REPOSITION Q 2 HRS. ON BILATERAL SOFT WRIST RESTRAINT. REASSESSED Q 2HOURS TO CHECK CIRCULATION. ALL SAFETY MEASURES IN PLACE, BED IN LOWEST POSITION AND LOCKED. BED ALARM ON. SIDE RAILS UP X3, PLACE CALL LIGHT WITH IN REACH. WILL CLOSELY MONITOR THE PATIENT
[2022-03-06] MEDS: SENNOSIDES 8.6 MG TABLET GT SCH (21:24)
[2022-03-07] VITALS: BP 116/70
[2022-03-07] MEDS: METOPROLOL TARTRATE 50 MG TABLET GT SCH ×4 (00:29→17:28)
[2022-03-07] MEDS: ACETAMINOPHEN 650 MG/20.3 ML UDC GT PRN (02:15)
[2022-03-07 04:00] VITALS: BP 135/75
--- NOTE | 2022-03-07 06:46 | NUR ---
RN NOTES PATENT REMAINS STABLE NO SIGNIFICANT CHANGES.WITH IV ACCESS AT VIJAY MIDLINE # 18 PATENT FLUSHES WELL. GT INTACT CONNECTED TO CONTINUOS FEEDING. R CHEST WALL INTACT NO BLEEDING. STILL ON HD TOLERATION WELL. ALL SAFETY MEASURES IN PLACE. HOB ELEVATED. CALL LIGHT WITHIN REACH. WILL ENDORSED TO MORNING SHIFT FOR UMESH
[2022-03-07 06:59] LABS: BASOPHILS % (AUTO) 0.2 % (0.0-2.0); HEMATOCRIT 23 % (39-51); HEMOGLOBIN 7.2 g/dL (13.5-17.5); LYMPHOCYTES # (AUTO) 1.4 K/uL (0.8-4.8); LYMPHOCYTES % (AUTO) 6.4 % (20.0-44.0); MEAN CORPUSCULAR HGB CONC 32 g/dl (31.0-36.0); MEAN CORPUSCULAR VOLUME 84 fL (80-96); MONOCYTES # (AUTO) 1.8 K/uL (0.1-1.30); MONOCYTES % (AUTO) 8.3 % (2.0-12.0); NEUTROPHILS # (AUTO) 17.8 K/uL (1.8-8.9); NEUTROPHILS % (AUTO) 83.1 % (43.0-81.0); PLATELET COUNT (AUTO) 138 K/uL (150-450); WHITE BLOOD COUNT (AUTO) 21.4 K/uL (4.3-11.0)
--- NOTE | 2022-03-07 07:20 | NUR ---
RN OPENING NOTES PATIENT IN BED, ALERTX1, ABLE TO MAKE NEEDS KNOWN. ON O2 AT 5L/MIN VIA N/C AND PT TOLERATED WELL. IV ACCESS ON LEFT HAND, VIJAY MIDLINE #18G INTACT AND PATENT. S/P 1 UNIT BLOOD TRANSFUSION NO S/S OF INFILTRATIONS.WITH RIGHT CHEST WALL PERMA CATH HD SITE INTACT. GTUBE WELL TOLERATED. RUNNING NEPRO AT 75CC/HR. ON EXTERNAL MONITOR SINUS RHYTHM REPOSITION Q 2 HRS. ON BILATERAL SOFT WRIST RESTRAINT. REASSESSED Q 2HOURS TO CHECK CIRCULATION. ALL SAFETY MEASURES IN PLACE, BED IN LOWEST POSITION AND LOCKED. BED ALARM ON. SIDE RAILS UP X3, PLACE CALL LIGHT WITH IN REACH.
[2022-03-07 07:29] LABS: ALBUMIN 2.5 g/dL (3.4-5.0); BILIRUBIN,TOTAL 0.3 mg/dL (0.2-1.0); CALCIUM, SERUM 10.9 mg/dL (8.5-10.1); CREATININE 5.3 mg/dL (0.6-1.3); POTASSIUM 3.7 mmol/L (3.5-5.1); TOTAL PROTEIN, SERUM 7.3 g/dL (6.4-8.2)
[2022-03-07 08:00] VITALS: BP 113/68
[2022-03-07] MEDS: PROSOURCE / PROSTAT (PYXIS) 30 ML UDC GT SCH (08:24)
[2022-03-07] MEDS: LEVETIRACETAM SOL (5 ML) 100 MG/ML UDC GT SCH ×2 (08:25→21:03)
[2022-03-07] MEDS: MEROPENEM 500 MG in IV NS 0.9% 50 ML IV SCH ×2 (08:25→21:03)
[2022-03-07] MEDS: VIT B CMPLX 3/FA/VIT C/BIOTIN 1 TAB TABLET GT SCH (08:28)
[2022-03-07] MEDS: OLANZAPINE 2.5 MG TABLET GT SCH ×2 (08:28→17:27)
[2022-03-07] MEDS: ZINC SULFATE 220 MG CAPSULE GT SCH (08:28)
[2022-03-07] MEDS: MINOXIDIL (2.5MG) 2.5 MG TABLET GT SCH ×2 (08:28→17:26)
[2022-03-07] MEDS: ASPIRIN 81 MG TAB.CHEW GT SCH (08:28)
[2022-03-07] MEDS: PANTOPRAZOLE 40 MG/PACK PACK GT SCH ×2 (08:28→17:26)
[2022-03-07] MEDS: LOSARTAN POTASSIUM 25 MG TABLET GT SCH (08:29)
[2022-03-07] MEDS: ASCORBIC ACID 500 MG TABLET GT SCH (08:29)
[2022-03-07] MEDS: CARVEDILOL 6.25 MG TABLET GT SCH ×2 (08:29→17:27)
[2022-03-07 08:39] LABS: ABG BASE EXCESS -2.3 mmol/L; ABG OXYGEN SATURATION 95.5 % (92.0-98.5); ABG PCO2 37.6 mmHg (35.0-45.0); ABG PH 7.392 (7.350-7.450); ABG PO2 81.3 mmHg (75.0-100.0); AaDO2 160.7 mmHg; COHb 1.4 % (0.5-1.5); MetHb 0.1 % (0.0-1.5); O2Hb 94.1 % (94.0-97.0); SITE, ABG Right Radial; VENT MODE, BG Nasal Cannula
[2022-03-07] MEDS: NEPRO 1,000 ML BOTTLE GT PRN (10:43)
[2022-03-07 12:00] VITALS: BP 98/48
--- NOTE | 2022-03-07 14:38 | NUR ---
RN NOTE ATTEMPTED TO CONTACT PATIENTS SPOUSE REGARDING HD CATH REMOVAL. NO ANSWER LET MESSAGE TO CALL KARIE PROCEDURE IS SCHEDULED FOR 0900.
[2022-03-07 16:00] VITALS: BP 109/54
--- NOTE | 2022-03-07 16:00 | NUR ---
RN NOTE ATTEMPTED TO CONTACT PATIENTS SPOUSE REGARDING HD CATH REMOVAL. NO ANSWER LET MESSAGE TO CALL [facility] PROCEDURE IS SCHEDULED FOR 0900.
--- NOTE | 2022-03-07 18:01 | NUR ---
RN NOTE ATTEMPTED TO CONTACT PATIENTS SPOUSE REGARDING HD CATH REMOVAL. NO ANSWER LET MESSAGE TO CALL BACK PROCEDURE IS SCHEDULED FOR 0900.
--- NOTE | 2022-03-07 18:47 | NUR ---
RN CLOSING NOTES PATENT REMAINS STABLE NO SIGNIFICANT CHANGES.WITH IV ACCESS AT VIJAY MIDLINE # 18 PATENT FLUSHES WELL. GT INTACT CONNECTED TO CONTINUOS FEEDING. R CHEST WALL INTACT NO BLEEDING. ALL SAFETY MEASURES IN PLACE. HOB ELEVATED. CALL LIGHT WITHIN REACH. WILL ENDORSED TO PUBLIC TRANSPORTATION INSPECTOR FOR UMESH
--- NOTE | 2022-03-07 19:20 | NUR ---
MACHINE MAINTENANCE TECHNICIAN OPENING NOTES RECEIVED PATIENT IN BED AWAKE. A/O X1. ON O2 AT 5LPM VIA NASAL CANULA, BREATHING EVEN AND NON-LABORED. NOT IN APPARENT DISTRESS. NO PAIN OR DISCOMFORT NOTED. ON TELE MONITOR READING SINUS TACHYCARDIA AT 100-110 BPM. HAS IV ACCESS ON: LEFT WRIST #18G AND SALINE LOCKED, AND RIGHT UPPER ARM MIDLINE #18G WITH NS RUNNING TKO. NO S/S OF INFILTRATION NOTED. HAS RIGHT CHEST WALL IJ PERMA CATH C/D/I. HAS G-TUBE FEEDING CURRENTLY OFF. SAFETY MEASURES IN PLACE: BED LOW AND LOCKED, BED ALARM ON, SIDE RAILS UP X2, CALL LIGHT WITHIN REACH. WILL CONTINUE POC.
[2022-03-07 20:00] VITALS: BP 92/49
[2022-03-07] MEDS: SENNOSIDES 8.6 MG TABLET GT SCH (21:34)
[2022-03-08] VITALS (11 sets, daily range): BP systolic 88–127; BP diastolic 50–67
[2022-03-08] MEDS: NEPRO 1,000 ML BOTTLE GT PRN ×2 (02:59→12:27)
[2022-03-08] MEDS: METOPROLOL TARTRATE 50 MG TABLET GT SCH ×4 (06:00→17:03)
[2022-03-08 07:19] LABS: ALBUMIN 2.4 g/dL (3.4-5.0); BILIRUBIN,TOTAL 0.4 mg/dL (0.2-1.0); CALCIUM, SERUM 10.6 mg/dL (8.5-10.1); CREATININE 5.2 mg/dL (0.6-1.3); POTASSIUM 3.7 mmol/L (3.5-5.1); TOTAL PROTEIN, SERUM 7.3 g/dL (6.4-8.2)
[2022-03-08 07:19] LABS: BASOPHILS # (AUTO) 0.1 K/uL (0.0-0.2); BASOPHILS % (AUTO) 0.3 % (0.0-2.0); EOSINOPHILS % (AUTO) 2.3 % (0.0-6.0); HEMATOCRIT 21 % (39-51); LYMPHOCYTES % (AUTO) 5.6 % (20.0-44.0); MEAN CORPUSCULAR HGB CONC 31 g/dl (31.0-36.0); MEAN CORPUSCULAR VOLUME 84 fL (80-96); MONOCYTES # (AUTO) 1.7 K/uL (0.1-1.30); MONOCYTES % (AUTO) 9.2 % (2.0-12.0); NEUTROPHILS # (AUTO) 14.8 K/uL (1.8-8.9); NEUTROPHILS % (AUTO) 82.6 % (43.0-81.0); PLATELET COUNT (AUTO) 157 K/uL (150-450); RED BLOOD CELL COUNT(AUTO) 2.54 MIL/uL (4.5-6.0)
[2022-03-08 07:20] LABS: HEMOGLOBIN 6.7 g/dL (13.5-17.5)
--- NOTE | 2022-03-08 07:28 | NUR ---
PREVENTIVE MAINTENANCE COORDINATOR CLOSING NOTES PATIENT IN BED DOSING OFF INTERMITTENTLY. A/O X1, NODS TO YES/NO QUESTIONS. NO SOB OR NOTED. SATURATING AT 96-100% ON O2 AT 5LPM VIA NASAL CANULA. NOT IN ACUTE DISTRESS. AFEBRILE BUT WARM TO TOUCH. ON TELE MONITOR READING SINUS TACHYCARDIA AT 100-120 BPM. HAS IV ACCESS ON: LEFT WRIST #18G AND SALINE LOCKED, AND RIGHT UPPER ARM MIDLINE #18G WITH NS RUNNING TKO. INTACT, PATENT AND FLUSHING. HAS RIGHT CHEST WALL IJ PERMA CATH C/D/I. HAS G-TUBE FEEDING OF NEPRO RUNNING AT 75 ML/HR. NO RESIDUAL NOTED. ALL DUE MEDS GIVEN AND NEEDS ATTENDED. SAFETY MEASURES MAINTAINED. WILL ENDORSE TO NEXT SHIFT FOR UMESH.
--- NOTE | 2022-03-08 07:30 | NUR ---
BMX RIDER AM NOTES PATIENT IN BED, ALERTX1, ABLE TO MAKE NEEDS KNOWN. ON O2 AT 5L/MIN VIA N/C AND PT TOLERATED WELL. IV ACCESS ON LEFT HAND, VIJAY MIDLINE #18G INTACT AND PATENT. WITH RIGHT CHEST WALL PERMA CATH HD SITE INTACT. GTUBE WELL TOLERATED. RUNNING NEPRO AT 75CC/HR. ON AT 1830 OFF 0230, EXTERNAL MONITOR SINUS TACH, REPOSITION Q 2 HRS. ON BILATERAL SOFT WRIST RESTRAINT. REASSESSED Q 2HOURS TO CHECK CIRCULATION. ALL SAFETY MEASURES IN PLACE, BED IN LOWEST POSITION AND LOCKED. BED ALARM ON. SIDE RAILS UP X3, PLACE CALL LIGHT WITH IN REACH. WILL CONT TO MONITOR. FOR RCW CATH REMOVAL
[2022-03-08] MEDS: PANTOPRAZOLE 40 MG/PACK PACK GT SCH ×2 (08:30→17:03)
[2022-03-08] MEDS: LEVETIRACETAM SOL (5 ML) 100 MG/ML UDC GT SCH ×2 (08:30→21:59)
[2022-03-08] MEDS: PROSOURCE / PROSTAT (PYXIS) 30 ML UDC GT SCH (08:30)
[2022-03-08] MEDS: OLANZAPINE 2.5 MG TABLET GT SCH ×2 (08:30→17:03)
[2022-03-08] MEDS: ASCORBIC ACID 500 MG TABLET GT SCH (08:30)
[2022-03-08] MEDS: CARVEDILOL 6.25 MG TABLET GT SCH ×2 (08:31→16:32)
[2022-03-08] MEDS: ASPIRIN 81 MG TAB.CHEW GT SCH (08:31)
[2022-03-08] MEDS: LOSARTAN POTASSIUM 25 MG TABLET GT SCH (08:32)
[2022-03-08] MEDS: MINOXIDIL (2.5MG) 2.5 MG TABLET GT SCH ×2 (08:32→16:32)
--- NOTE | 2022-03-08 08:44 | NUR ---
RN NOTES DR. CALDERA AT BEDSIDE PERMACATH OFF. ON LINE HOLIDAY HD NURSE ELENI PRESENT WELL.
[2022-03-08] MEDS: VIT B CMPLX 3/FA/VIT C/BIOTIN 1 TAB TABLET GT SCH (08:49)
[2022-03-08] MEDS: ZINC SULFATE 220 MG CAPSULE GT SCH (08:49)
[2022-03-08] MEDS ORDERED: LIDOCAINE 1% INJ 50 ML MDV IJ ONE (09:00)
[2022-03-08] MEDS: MEROPENEM 500 MG in IV NS 0.9% 50 ML IV SCH ×2 (09:21→20:57)
--- NOTE | 2022-03-08 09:30 | NUR ---
RN NOTES DUE MEDS GIVEN. NO BLEEDING FROM PERMACATH SITE POST REMOVAL
[2022-03-08] MEDS: IV NS 0.9% 250 ML IV PRN (09:59)
--- NOTE | 2022-03-08 10:50 | NUR ---
RN NOTES RECEIVED A CALL FROM LABORATORY, THEY HAVE TO GET BLOOD FROM [facility] AND WILL NOTIFY US ONCE BLOOD IS AVAILABLE. NOTIFIED
[2022-03-08] MEDS: ACETAMINOPHEN 650 MG/20.3 ML UDC GT PRN (12:27)
--- NOTE | 2022-03-08 12:35 | NUR ---
RN NOTES DR. LESLIE NOTIFIED, PT WITH LOW GRADE FEVER 100.6 - TYLENOL GIVEN SKIPPED LOPRESSOR DUE TO LOW BP 96/53 OKAY TO TRANSFUSE SLOWLY.
--- NOTE | 2022-03-08 14:13 | NUR ---
RN NOTES BLOOD TRANSFUSION STARTED.
[2022-03-08] MEDS ORDERED: VANCOMYCIN 1 GM in IV D5W 250ml IV SCH (16:00)
--- NOTE | 2022-03-08 16:28 | NUR ---
RN NOTES; 1 UNIT PRBC TRANSFUSION COMPLETED. NO ADVERSE REACTION NOTED. VS WNL.
--- NOTE | 2022-03-08 18:30 | NUR ---
EARLY CHILDHOOD SPECIALIST CLOSING NOTES PATIENT IN BED, ALERTX1, ABLE TO MAKE NEEDS KNOWN. ON O2 AT 5L/MIN VIA N/C AND PT TOLERATED WELL. IV ACCESS ON LEFT HAND, VIJAY MIDLINE #18G INTACT AND PATENT. S/P PERMA CATH HD REMOVED EARLIER BY DR CALDERA. ON LINE HOLIDAY. GTUBE WELL TOLERATED. RUNNING NEPRO AT 75CC/HR. ON AT 1830 OFF 0230, EXTERNAL MONITOR SR TO SINUS TACH, REPOSITION Q 2 HRS. ON BILATERAL SOFT WRIST RESTRAINT. REASSESSED Q 2HOURS TO CHECK CIRCULATION. ALL SAFETY MEASURES IN PLACE, BED IN LOWEST POSITION AND LOCKED. BED ALARM ON. SIDE RAILS UP X3, PLACE CALL LIGHT WITH IN REACH. ALL NEEDS KET. PM CARE DONE EARLIER . WILL ENDORSE TO NEXT SHIFT FOR UMESH.
--- NOTE | 2022-03-08 19:35 | NUR ---
PARAMEDIC INSTRUCTOR OPENING NOTE RECEIVED PATIENT IN BED; AWAKE, A/O X 1. ON O2 INHALATION @ 5LPM VIA NASAL CANNULA; TOLERATING WELL. WITH IV ACCESS ON LEFT WRIST 18g AND MIDLINE ON RIGHT UPPER ARM 18g: BOTH ARE INTACT AND PATENT. ON LINE HOLIDAY. ON NEPRO GTUBE FEEDING RUNNING @ 75CC/HR; ON @ 1830, OFF @ 0230. ON TELE MONITORING MONITORING WHICH READS SINUS TACHYCARDIA HR-112 BPM. NEEDS ANTICIPATED. SAFETY PRECAUTIONS IMPLEMENTED: HEAD OF BED ELEVATED, CALL LIGHT AND TABLE WITHIN REACH, SIDE RAILS UP X3, BED IN LOWEST LOCKED POSITION. WILL CONTINUE PLAN OF CARE.
[2022-03-08 21:13] LABS: HEMOGLOBIN 7.4 g/dL (13.5-17.5)
[2022-03-08] MEDS: SENNOSIDES 8.6 MG TABLET GT SCH (22:00)
[2022-03-09] VITALS (13 sets, daily range): BP systolic 90–129; BP diastolic 56–81
[2022-03-09] MEDS: METOPROLOL TARTRATE 50 MG TABLET GT SCH ×4 (00:49→18:58)
--- NOTE | 2022-03-09 06:50 | NUR ---
WILDLIFE CONSERVATIONIST CLOSING NOTE PATIENT IN BED; AWAKE, A/O X 1. ON O2 INHALATION @ 5LPM VIA NASAL CANNULA; TOLERATING WELL. WITH IV ACCESS ON LEFT WRIST 18g AND MIDLINE ON RIGHT UPPER ARM 18g: BOTH ARE INTACT AND PATENT. ON LINE HOLIDAY. ON NEPRO FEEDING RUNNING @ 75CC/HR; TOLERATING WELL. ON @ 1830, OFF @ 0230. ON TELE MONITORING: SINUS TACHYCARDIA HR-111 BPM. ALL NEEDS ATTENDED. SAFETY PRECAUTIONS MAINTAINED: HEAD OF BED ELEVATED, CALL LIGHT AND TABLE WITHIN REACH, SIDE RAILS UP X3, BED IN LOWEST LOCKED POSITION. ENDORSED TO MORNING SHIFT FOR UMESH.
[2022-03-09 07:00] LABS: BASOPHILS % (AUTO) 0.3 % (0.0-2.0); EOSINOPHILS % (AUTO) 2.2 % (0.0-6.0); HEMATOCRIT 22 % (39-51); LYMPHOCYTES % (AUTO) 6.7 % (20.0-44.0); MEAN CORPUSCULAR HGB CONC 32 g/dl (31.0-36.0); MEAN CORPUSCULAR VOLUME 84 fL (80-96); MONOCYTES # (AUTO) 1.8 K/uL (0.1-1.30); MONOCYTES % (AUTO) 11.8 % (2.0-12.0); NEUTROPHILS # (AUTO) 12.3 K/uL (1.8-8.9); PLATELET COUNT (AUTO) 183 K/uL (150-450); WHITE BLOOD COUNT (AUTO) 15.6 K/uL (4.3-11.0)
--- NOTE | 2022-03-09 07:15 | NUR ---
WRAP KNITTING MACHINE OPERATOR OPENING NOTES PATIENT IN BED, ALERTX1, ABLE TO MAKE NEEDS KNOWN. ON O2 AT 5L/MIN VIA N/C AND PT TOLERATED WELL. IV ACCESS ON LEFT HAND, VIJAY MIDLINE #18G INTACT AND PATENT. WITH RIGHT CHEST WALL PERMA CATH HD SITE INTACT. GTUBE WELL TOLERATED. RUNNING NEPRO AT 75CC/HR. ON AT 1830 OFF 0230, EXTERNAL MONITOR SINUS TACH, REPOSITION Q 2 HRS. ON BILATERAL SOFT WRIST RESTRAINT. REASSESSED Q 2HOURS TO CHECK CIRCULATION. ALL SAFETY MEASURES IN PLACE, BED IN LOWEST POSITION AND LOCKED. BED ALARM ON. SIDE RAILS UP X3, PLACE CALL LIGHT WITH IN REACH. WILL CONT TO MONITOR.
[2022-03-09 07:17] LABS: ALBUMIN 2.4 g/dL (3.4-5.0); BILIRUBIN,TOTAL 0.4 mg/dL (0.2-1.0); CALCIUM, SERUM 10.6 mg/dL (8.5-10.1); CREATININE 7.2 mg/dL (0.6-1.3); POTASSIUM 3.9 mmol/L (3.5-5.1); TOTAL PROTEIN, SERUM 7.3 g/dL (6.4-8.2)
--- NOTE | 2022-03-09 07:20 | NUR ---
CONTACT CENTER ASSOCIATE AM NOTES PATIENT IN BED, ALERTX1, . ON O2 AT 5L/MIN VIA N/C AND PT TOLERATED WELL. IV ACCESS ON LEFT HAND, VIJAY MIDLINE #18G INTACT AND PATENT. GTUBE WELL TOLERATED. RUNNING NEPRO AT 75CC/HR. ON AT 1830 OFF 0230, EXTERNAL MONITOR SINUS TACH, REPOSITION Q 2 HRS. ALL SAFETY MEASURES IN PLACE, BED IN LOWEST POSITION AND LOCKED. BED ALARM ON. SIDE RAILS UP X3, PLACE CALL LIGHT WITH IN REACH. WILL CONT TO MONITOR.
[2022-03-09] MEDS: ACETAMINOPHEN 650 MG/20.3 ML UDC GT PRN (08:33)
[2022-03-09] MEDS: MEROPENEM 500 MG in IV NS 0.9% 50 ML IV SCH ×2 (08:33→21:40)
[2022-03-09] MEDS: PANTOPRAZOLE 40 MG/PACK PACK GT SCH (08:34)
[2022-03-09] MEDS: OLANZAPINE 2.5 MG TABLET GT SCH ×2 (08:34→16:05)
[2022-03-09] MEDS: LEVETIRACETAM SOL (5 ML) 100 MG/ML UDC GT SCH ×2 (08:34→21:40)
[2022-03-09] MEDS: VIT B CMPLX 3/FA/VIT C/BIOTIN 1 TAB TABLET GT SCH (08:34)
[2022-03-09] MEDS: LOSARTAN POTASSIUM 25 MG TABLET GT SCH (08:35)
[2022-03-09] MEDS: MINOXIDIL (2.5MG) 2.5 MG TABLET GT SCH (08:35)
[2022-03-09] MEDS: ASPIRIN 81 MG TAB.CHEW GT SCH (08:36)
[2022-03-09] MEDS: ZINC SULFATE 220 MG CAPSULE GT SCH (08:37)
[2022-03-09] MEDS: CARVEDILOL 6.25 MG TABLET GT SCH ×2 (08:37→17:00)
[2022-03-09] MEDS: ASCORBIC ACID 500 MG TABLET GT SCH (08:37)
[2022-03-09] MEDS: PROSOURCE / PROSTAT (PYXIS) 30 ML UDC GT SCH (08:41)
--- NOTE | 2022-03-09 10:31 | NUR ---
RN NOTES: SEEN BY DR TIAGO IBRAHIM WHO SAID HE ORDERED BLOOD TRANSFUSION FOR HEMOGLOBIN 7 , HE IS AWARE OF LOW GRADE FEVER 99.8. BP WAS 119/73 AND EVAN RECEIVED CARVEDILOL, MINOXIDIL AND LOSARTAN WAS HELD, HE SAID HE WILL ADJUST BP MEDS
[2022-03-09] MEDS: NEPRO 1,000 ML BOTTLE GT PRN (15:51)
[2022-03-09] MEDS: PANTOPRAZOLE 40 MG VIAL IV SCH (16:05)
--- NOTE | 2022-03-09 19:20 | NUR ---
RN OPENING NOTE RECEIVED PATIENT IN BED AWAKE, NON VERBAL, BUT CAN SHAKE HIS HEAD IN RESPONSE. ON 5L VIA NC, NO S/S OF ACUTE DISTRESS,TELE MONITOR READING SR/ST HR 103. LHAND #18G NOT INTACT, VIJAY M/L INTACT AND PATENT. RU CHEST DRESSING WHERE HD PORT WAS. CURRENTLY ON A LINE HOLIDAY. G TUBE INTACT AND PATENT, CURRENTLY OFF, TURN BACK ON AT 0300. ALL SAFETY MEASURES IN PLACE, BED ALARM ON, BED IN LOW LOCK POSITION, CALL LIGHT AND TABLE WITHIN EASY REACH, SIDE RAILS UP X2. WILL CONTINUE TO MONITOR THROUGHOUT SHIFT.
[2022-03-09] MEDS: BACI/NEOM/POLY B OINT PKT 1 UDPKT PACKET TP SCH (21:40)
[2022-03-09] MEDS: SENNOSIDES 8.6 MG TABLET GT SCH (21:40)
[2022-03-10] VITALS: BP 128/80
--- NOTE | 2022-03-10 00:03 | NUR ---
RN NOTE BLOOD TRANSFUSION ENDED AT 0000 03/10/22.VITALS T:99.1 BP:128/80,P:98,RESP:20. SAT:99%
[2022-03-10] MEDS: METOPROLOL TARTRATE 50 MG TABLET GT SCH ×5 (00:08→23:58)
[2022-03-10] MEDS: MEROPENEM 500 MG in IV NS 0.9% 50 ML IV SCH ×3 (00:34→20:04)
[2022-03-10 04:00] VITALS: BP 120/79
[2022-03-10 06:21] LABS: BASOPHILS # (AUTO) 0.1 K/uL (0.0-0.2); BASOPHILS % (AUTO) 0.6 % (0.0-2.0); EOSINOPHILS % (AUTO) 2.8 % (0.0-6.0); HEMATOCRIT 24 % (39-51); HEMOGLOBIN 7.6 g/dL (13.5-17.5); LYMPHOCYTES # (AUTO) 1.3 K/uL (0.8-4.8); LYMPHOCYTES % (AUTO) 9.8 % (20.0-44.0); MEAN CORPUSCULAR HGB CONC 32 g/dl (31.0-36.0); MEAN CORPUSCULAR VOLUME 85 fL (80-96); MONOCYTES # (AUTO) 1.8 K/uL (0.1-1.30); MONOCYTES % (AUTO) 13.4 % (2.0-12.0); NEUTROPHILS # (AUTO) 9.8 K/uL (1.8-8.9); NEUTROPHILS % (AUTO) 73.4 % (43.0-81.0); PLATELET COUNT (AUTO) 230 K/uL (150-450); RED BLOOD CELL COUNT(AUTO) 2.81 MIL/uL (4.5-6.0); WHITE BLOOD COUNT (AUTO) 13.3 K/uL (4.3-11.0)
[2022-03-10 06:32] LABS: ALBUMIN 2.3 g/dL (3.4-5.0); BILIRUBIN,TOTAL 0.3 mg/dL (0.2-1.0); POTASSIUM 4.1 mmol/L (3.5-5.1); TOTAL PROTEIN, SERUM 7.4 g/dL (6.4-8.2)
[2022-03-10 06:38] LABS: CREATININE 8.9 mg/dL (0.6-1.3)
--- NOTE | 2022-03-10 06:50 | NUR ---
RN CLOSING NOTE RECEIVED PATIENT IN BED AWAKE, NON VERBAL, BUT CAN SHAKE HIS HEAD IN RESPONSE. ON 5L VIA NC, NO S/S OF ACUTE DISTRESS,TELE MONITOR READING SR HR 100. LHAND #18G NOT INTACT, VIJAY M/L INTACT AND PATENT. RU CHEST DRESSING WHERE HD PORT WAS. CURRENTLY ON A LINE HOLIDAY. G TUBE RUNNING NEPHRO @75ML/HR. ALL SAFETY MEASURES IN PLACE, BED ALARM ON, BED IN LOW LOCK POSITION, CALL LIGHT AND TABLE WITHIN EASY REACH, SIDE RAILS UP X2. WILL ENDORSE TO MORNING SHIFT FOR UMESH.
--- NOTE | 2022-03-10 07:24 | NUR ---
RN OPENING NOTES PATIENT IN BED, ALERTX1, ABLE TO MAKE NEEDS KNOWN. ON O2 AT 5L/MIN VIA N/C AND PT TOLERATED WELL. IV ACCESS ON LEFT HAND, VIJAY MIDLINE #18G INTACT AND PATENT. GTUBE WELL TOLERATED. RUNNING NEPRO AT 75CC/HR. ON AT 1900 OFF 0300, EXTERNAL MONITOR. ON BILATERAL SOFT WRIST RESTRAINT. ALL SAFETY MEASURES IN PLACE, BED IN LOWEST POSITION AND LOCKED. BED ALARM ON. SIDE RAILS UP X3, PLACE CALL LIGHT WITH IN REACH.
[2022-03-10 08:00] VITALS: BP 140/88
[2022-03-10] MEDS: ASPIRIN 81 MG TAB.CHEW GT SCH (08:07)
[2022-03-10] MEDS: ZINC SULFATE 220 MG CAPSULE GT SCH (08:07)
[2022-03-10] MEDS: VIT B CMPLX 3/FA/VIT C/BIOTIN 1 TAB TABLET GT SCH (08:07)
[2022-03-10] MEDS: BACI/NEOM/POLY B OINT PKT 1 UDPKT PACKET TP SCH ×2 (08:07→18:12)
[2022-03-10] MEDS: OLANZAPINE 2.5 MG TABLET GT SCH ×2 (08:07→17:23)
[2022-03-10] MEDS: CARVEDILOL 6.25 MG TABLET GT SCH ×2 (08:08→17:24)
[2022-03-10] MEDS: LEVETIRACETAM SOL (5 ML) 100 MG/ML UDC GT SCH ×2 (08:08→20:04)
[2022-03-10] MEDS: LOSARTAN POTASSIUM 25 MG TABLET GT SCH (08:08)
[2022-03-10] MEDS: PANTOPRAZOLE 40 MG VIAL IV SCH ×2 (08:08→17:23)
[2022-03-10] MEDS: ASCORBIC ACID 500 MG TABLET GT SCH (08:08)
[2022-03-10] MEDS: PROSOURCE / PROSTAT (PYXIS) 30 ML UDC GT SCH (08:09)
[2022-03-10] MEDS: ACETAMINOPHEN 650 MG/20.3 ML UDC GT PRN (08:14)
[2022-03-10 12:00] VITALS: BP 110/73
[2022-03-10 16:00] VITALS: BP 123/72
[2022-03-10] MEDS: NEPRO 1,000 ML BOTTLE GT PRN (16:20)
--- NOTE | 2022-03-10 18:45 | NUR ---
RN CLOSING NOTES PATIENT IN BED, ALERTX1, ABLE TO MAKE NEEDS KNOWN. ON O2 AT3L/MIN VIA N/C AND PT TOLERATED WELL. IV ACCESS ON LEFT HAND, VIJAY MIDLINE #18G INTACT AND PATENT. S/P PERMA CATH HD REMOVED EARLIER BY DR CALDERA. ON LINE HOLIDAY. GTUBE WELL TOLERATED. RUNNING NEPRO AT 75CC/HR. ON AT 190 OFF 0300, EXTERNAL MONITOR SR TO SINUS TACH, REPOSITION Q 2 HRS. ON BILATERAL SOFT WRIST RESTRAINT. REASSESSED Q 2HOURS TO CHECK CIRCULATION. ALL SAFETY MEASURES IN PLACE, BED IN LOWEST POSITION AND LOCKED. BED ALARM ON. SIDE RAILS UP X3, PLACE CALL LIGHT WITH IN REACH. WILL ENDORSE TO NEXT SHIFT FOR UMESH.
--- NOTE | 2022-03-10 19:30 | NUR ---
RN OPENING NOTE RECEIVED PATIENT IN BED, ALERT/ORIENTED X 1, ABLE TO FOLLOW COMMANDS AND ANSWER YES/NO ONLY. CURRENTLY ON O2 AT 3L/MIN VIA N/C TOLERATING WELL. NO S/SX OF ACUTE RESPI DISTRESS NOTED AT THIS TIME. ON TELE MONITOR READING SR AT THE MOMENT. IV ACCESS ON LEFT HAND, VIJAY MIDLINE #18G INTACT AND PATENT. GTUBE CURRENTLY CLAMPED. WILL RESUME FEEDING OF NEPRO (75 CC/HR X 16 HRS) AT 0300 PER MD ORDER. ALL SAFETY MEASURES IN PLACE: BED IN LOWEST POSITION AND LOCKED. BED ALARM ON. SIDE RAILS UP X3, CALL LIGHT WITHIN REACH.
[2022-03-10 20:00] VITALS: BP 111/65
[2022-03-10 20:32] LABS: HEMOGLOBIN 7.6 g/dL (13.5-17.5)
[2022-03-10] MEDS: SENNOSIDES 8.6 MG TABLET GT SCH (21:54)
[2022-03-11] VITALS: BP 116/74
[2022-03-11] MEDS: IV NS 0.9% 250 ML IV PRN (00:11)
[2022-03-11 04:00] VITALS: BP 141/80
[2022-03-11] MEDS: METOPROLOL TARTRATE 50 MG TABLET GT SCH ×3 (05:15→17:31)
--- NOTE | 2022-03-11 05:42 | NUR ---
RN NOTE NO SIGNIFICANT CHANGES T/O THE NIGHT. PM CARE DONE. TURNED AND REPOSITIONED. DUE MEDS GIVEN. WILL ENDORSE TO AM SHIFT NURSE FOR UMESH.
[2022-03-11 07:07] LABS: BASOPHILS % (AUTO) 0.3 % (0.0-2.0); EOSINOPHILS % (AUTO) 2.6 % (0.0-6.0); HEMATOCRIT 23 % (39-51); HEMOGLOBIN 7.5 g/dL (13.5-17.5); LYMPHOCYTES # (AUTO) 1.4 K/uL (0.8-4.8); LYMPHOCYTES % (AUTO) 11.1 % (20.0-44.0); MEAN CORPUSCULAR HGB CONC 32 g/dl (31.0-36.0); MEAN CORPUSCULAR VOLUME 84 fL (80-96); MONOCYTES # (AUTO) 1.5 K/uL (0.1-1.30); MONOCYTES % (AUTO) 12.2 % (2.0-12.0); NEUTROPHILS # (AUTO) 9.2 K/uL (1.8-8.9); NEUTROPHILS % (AUTO) 73.8 % (43.0-81.0); PLATELET COUNT (AUTO) 284 K/uL (150-450); RED BLOOD CELL COUNT(AUTO) 2.76 MIL/uL (4.5-6.0); WHITE BLOOD COUNT (AUTO) 12.5 K/uL (4.3-11.0)
--- NOTE | 2022-03-11 07:07 | NUR ---
RN OPENING NOTE RECEIVED PATIENT IN BED, ALERT/ORIENTED X 1, ABLE TO FOLLOW COMMANDS AND ANSWER YES/NO ONLY. CURRENTLY ON O2 AT 3L/MIN VIA N/C TOLERATING WELL. NO S/SX OF ACUTE RESPI DISTRESS NOTED AT THIS TIME. ON TELE MONITOR READING SR AT THE MOMENT. IV ACCESS ON LEFT HAND, VIJAY MIDLINE #18G INTACT AND PATENT. GTUBE CURRENTLY RUNNING NEPRO (75 CC/HR X 16 HRS). ALL SAFETY MEASURES IN PLACE: BED IN LOWEST POSITION AND LOCKED. BED ALARM ON. SIDE RAILS UP X3, CALL LIGHT WITHIN REACH.
[2022-03-11 07:14] LABS: ALBUMIN 2.2 g/dL (3.4-5.0); BILIRUBIN,TOTAL 0.4 mg/dL (0.2-1.0); CALCIUM, SERUM 11.3 mg/dL (8.5-10.1); POTASSIUM 4.2 mmol/L (3.5-5.1); TOTAL PROTEIN, SERUM 7.3 g/dL (6.4-8.2)
[2022-03-11 07:17] LABS: CREATININE 10.6 mg/dL (0.6-1.3)
[2022-03-11 07:32] LABS: PHOSPHORUS 7.6 mg/dL (2.5-4.9)
[2022-03-11 08:00] VITALS: BP 135/79
[2022-03-11] MEDS: MEROPENEM 500 MG in IV NS 0.9% 50 ML IV SCH ×2 (08:27→21:33)
[2022-03-11] MEDS: LEVETIRACETAM SOL (5 ML) 100 MG/ML UDC GT SCH ×2 (08:27→21:33)
[2022-03-11] MEDS: BACI/NEOM/POLY B OINT PKT 1 UDPKT PACKET TP SCH (08:27)
[2022-03-11] MEDS: PANTOPRAZOLE 40 MG VIAL IV SCH ×2 (08:27→17:27)
[2022-03-11] MEDS: OLANZAPINE 2.5 MG TABLET GT SCH ×2 (08:28→17:27)
[2022-03-11] MEDS: CARVEDILOL 6.25 MG TABLET GT SCH ×2 (08:28→17:27)
[2022-03-11] MEDS: LOSARTAN POTASSIUM 25 MG TABLET GT SCH (08:29)
[2022-03-11] MEDS: ASCORBIC ACID 500 MG TABLET GT SCH (08:29)
[2022-03-11] MEDS: PROSOURCE / PROSTAT (PYXIS) 30 ML UDC GT SCH (08:29)
[2022-03-11] MEDS: ASPIRIN 81 MG TAB.CHEW GT SCH (08:29)
[2022-03-11] MEDS: VIT B CMPLX 3/FA/VIT C/BIOTIN 1 TAB TABLET GT SCH (08:29)
[2022-03-11] MEDS: ZINC SULFATE 220 MG CAPSULE GT SCH (08:29)
[2022-03-11] MEDS: ACETAMINOPHEN 650 MG/20.3 ML UDC GT PRN ×2 (08:37→23:07)
[2022-03-11] MEDS ORDERED: NEPRO 1,000 ML BOTTLE GT PRN (11:00)
[2022-03-11 12:00] VITALS: BP 121/74
[2022-03-11 16:00] VITALS: BP 115/72
[2022-03-11] MEDS: NEOMY SULF/BACITRAC ZN/POLY 15 GM TUBE TP SCH (17:29)
--- NOTE | 2022-03-11 18:52 | NUR ---
RN CLOSING NOTES PATIENT IN BED, ALERTX1, ABLE TO MAKE NEEDS KNOWN. ON O2 AT3L/MIN VIA N/C AND PT TOLERATED WELL. IV ACCESS ON LEFT HAND, VIJAY MIDLINE #18G INTACT AND PATENT. ON LINE HOLIDAY. GTUBE WELL TOLERATED. RUNNING NEPRO AT 75CC/HR. ON AT 1900 OFF 0300, EXTERNAL MONITOR SR TO SINUS TACH, REPOSITION Q 2 HRS. ALL SAFETY MEASURES IN PLACE, BED IN LOWEST POSITION AND LOCKED. BED ALARM ON. SIDE RAILS UP X3, PLACE CALL LIGHT WITH IN REACH. WILL ENDORSE TO NEXT SHIFT FOR UMESH.
--- NOTE | 2022-03-11 19:10 | NUR ---
TELE OPEN NOTE: AWAKE. ALERT TIMES ONE. VERBALLY RESPONSIVE. ABLE TO ANSWER YES AND NO QUESTIONS. UNLABORED BREATHING WITH 02 3 LPM NC. ON TELE MONITOR WITH A RHYTHM OF 97. IV ON RIGHT UPPER ARM MIDLINE WITH A CLEAN DRESSING PATENT. IVF TKO 10 ML/HR. RIGHT UPPER CHEST WALL WITH CLEAN DRESSING. GT IN PLACE PATENT NO RESIDUAL. REPOSITIONED WITH PILLOWS. KEPT CLEAN AND DRY. BILATERAL HOB ELEVATED SEMI-HUNTLEY'S POSITION. HALF SIDE RAIL UP X2. BED IN LOW POSITION, LOCKED, WITH EXIT ALARM ON. CALL LIGHT IN REACH.
[2022-03-11 20:00] VITALS: BP 121/77
[2022-03-11 20:28] LABS: HEMOGLOBIN 7.6 g/dL (13.5-17.5)
[2022-03-11] MEDS: SENNOSIDES 8.6 MG TABLET GT SCH (21:33)
[2022-03-12] VITALS: BP 116/71
[2022-03-12] MEDS: METOPROLOL TARTRATE 50 MG TABLET GT SCH ×4 (00:16→17:53)
[2022-03-12 04:00] VITALS: BP 126/80
--- NOTE | 2022-03-12 07:30 | NUR ---
RN OPENING NOTE RECEIVED PATIENT IN BED, ALERT/ORIENTED X 1, ABLE TO FOLLOW COMMANDS AND ANSWER YES/NO ONLY. CURRENTLY ON O2 AT 3L/MIN VIA N/C TOLERATING WELL. NO S/SX OF ACUTE RESPI DISTRESS NOTED AT THIS TIME. NO SIGNS OF PAIN OR DISCOMFORT. PATIENT ON TELE MONITOR SINUS RHYTM. VIJAY MIDLINE #18G INTACT AND PATENT, FLUSHES WELL. GTUBE INTACT, PATENT AND FLUSHING WELL. ALL SAFETY MEASURES IN PLACE: BED IN LOWEST POSITION AND LOCKED. BED ALARM ON. SIDE RAILS UP X3, CALL LIGHT WITHIN REACH.
[2022-03-12 08:00] VITALS: BP 136/83
[2022-03-12] MEDS: ASPIRIN 81 MG TAB.CHEW GT SCH (08:19)
[2022-03-12] MEDS: MEROPENEM 500 MG in IV NS 0.9% 50 ML IV SCH ×2 (08:19→21:22)
[2022-03-12] MEDS: LEVETIRACETAM SOL (5 ML) 100 MG/ML UDC GT SCH ×2 (08:19→21:22)
[2022-03-12] MEDS: ZINC SULFATE 220 MG CAPSULE GT SCH (08:19)
[2022-03-12] MEDS: ASCORBIC ACID 500 MG TABLET GT SCH (08:19)
[2022-03-12] MEDS: VIT B CMPLX 3/FA/VIT C/BIOTIN 1 TAB TABLET GT SCH (08:19)
[2022-03-12] MEDS: PANTOPRAZOLE 40 MG VIAL IV SCH ×2 (08:19→17:52)
[2022-03-12 08:20] LABS: ALBUMIN 2.2 g/dL (3.4-5.0); BILIRUBIN,TOTAL 0.4 mg/dL (0.2-1.0); CALCIUM, SERUM 11.7 mg/dL (8.5-10.1); MAGNESIUM 3.2 mg/dL (1.8-2.4); POTASSIUM 4.4 mmol/L (3.5-5.1); TOTAL PROTEIN, SERUM 7.3 g/dL (6.4-8.2)
[2022-03-12] MEDS: OLANZAPINE 2.5 MG TABLET GT SCH ×2 (08:20→17:52)
[2022-03-12 08:44] LABS: CREATININE 12.1 mg/dL (0.6-1.3)
[2022-03-12 08:45] LABS: PHOSPHORUS 9.2 mg/dL (2.5-4.9)
[2022-03-12] MEDS: CARVEDILOL 6.25 MG TABLET GT SCH ×2 (08:47→17:52)
[2022-03-12] MEDS: LOSARTAN POTASSIUM 25 MG TABLET GT SCH (08:47)
--- NOTE | 2022-03-12 10:00 | NUR ---
RN NOTE NOTIFIED SUKHWINDER SAHU OF CRITICAL BUN, CREATINE, PHOSPHORUS, CALCUIM RESULTS. HOG RIBBER ACKNOWLEDGED
[2022-03-12 10:01] LABS: BASOPHILS # (AUTO) 0.1 K/uL (0.0-0.2); BASOPHILS % (AUTO) 0.6 % (0.0-2.0); EOSINOPHILS % (AUTO) 3.1 % (0.0-6.0); HEMATOCRIT 24 % (39-51); HEMOGLOBIN 7.5 g/dL (13.5-17.5); LYMPHOCYTES # (AUTO) 1.7 K/uL (0.8-4.8); LYMPHOCYTES % (AUTO) 14.1 % (20.0-44.0); MEAN CORPUSCULAR HGB CONC 31 g/dl (31.0-36.0); MEAN CORPUSCULAR VOLUME 85 fL (80-96); MONOCYTES # (AUTO) 1.5 K/uL (0.1-1.30); MONOCYTES % (AUTO) 12.3 % (2.0-12.0); NEUTROPHILS # (AUTO) 8.4 K/uL (1.8-8.9); NEUTROPHILS % (AUTO) 69.9 % (43.0-81.0); PLATELET COUNT (AUTO) 335 K/uL (150-450); RED BLOOD CELL COUNT(AUTO) 2.81 MIL/uL (4.5-6.0)
[2022-03-12 12:00] VITALS: BP 118/69
--- NOTE | 2022-03-12 12:00 | NUR ---
NOTIFIED DR. RIDDLE OF CRITICAL LAB RESULTS, BUN, CALCUIM AND CREATININED. ORDERS NOTED AND CARRIED OUT
[2022-03-12] MEDS: NEOMY SULF/BACITRAC ZN/POLY 15 GM TUBE TP SCH ×2 (15:08→17:55)
[2022-03-12 16:00] VITALS: BP 126/75
[2022-03-12] MEDS ORDERED: CALCIUM ACETATE 667 MG CAP/TAB PO SCH (18:00)
[2022-03-12] MEDS: CALCIUM ACETATE 667 MG CAP/TAB PO SCH (18:36)
--- NOTE | 2022-03-12 19:30 | NUR ---
RN NOTES PATIENT IN BED, ALERTX1, ABLE TO MAKE NEEDS KNOWN BY YES AND NO. ON O2 AT 2L/MIN VIA N/C AND PT TOLERATED WELL O2 SAT 97%. IV ACCESS VIJAY MIDLINE #18G INTACT AND PATENT. WITH GTUBE PATENT RUNNING NEPRO AT 55CC/HR. ON EXTERNAL MONITOR SINUS RHYTHM REPOSITION Q 2 HRS. ON LINE HOLIDAY ALL SAFETY MEASURES IN PLACE, BED IN LOWEST POSITION AND LOCKED. BED ALARM ON. SIDE RAILS UP X3, PLACE CALL LIGHT WITH IN REACH. WILL CLOSELY MONITOR THE PATIENT
[2022-03-12 20:00] VITALS: BP 122/82
--- NOTE | 2022-03-12 20:35 | NUR ---
RN CLOSING NOTE PATIENT IN BED, ALERT/ORIENTED X 1, ABLE TO FOLLOW COMMANDS AND ANSWER SIMPLE QUESTIONS WITH ANSWER YES/NO ONLY. ON O2 AT 3L/MIN VIA N/C TOLERATING WELL. NO SIGNS OF PAIN OR DISCOMFORT. PATIENT ON TELE MONITOR SINUS RHYTM. VIJAY MIDLINE #18G INTACT AND PATENT, FLUSHES WELL. GTUBE INTACT, PATENT AND FLUSHING WELL. ALL SAFETY MEASURES IN PLACE: BED IN LOWEST POSITION AND LOCKED. BED ALARM ON. SIDE RAILS UP X3, CALL LIGHT WITHIN REACH.
[2022-03-12 20:51] LABS: HEMOGLOBIN 7.5 g/dL (13.5-17.5)
[2022-03-12] MEDS: SENNOSIDES 8.6 MG TABLET GT SCH (21:23)
[2022-03-13] VITALS (8 sets, daily range): BP systolic 122–150; BP diastolic 73–89
[2022-03-13] MEDS: METOPROLOL TARTRATE 50 MG TABLET GT SCH ×5 (00:34→23:46)
[2022-03-13] MEDS: ACETAMINOPHEN 650 MG/20.3 ML UDC GT PRN (03:25)
--- NOTE | 2022-03-13 06:44 | NUR ---
RN NOTES PATIENT IN BED NO SOB NO DISTRESS NOTED AT THIS TIME. STILL ON OXYGEN INHALATION AT 2LPM SATING 97%. WITH R UA MIDLINE PATENT FLUSHES WELL. STILL ON LINE HOLIDAY. GT PATENT CONNECTED TO TUBE FEEDING TOLERATING WELL. ALL SAFETY MEASURES IN PLACE AT ALL TIMES. HOB ELEVATED. CALL LIGHT WITHIN REACH. WILL ENDORSED TO MORNING SHIFT FOR UMESH
--- NOTE | 2022-03-13 07:30 | NUR ---
RN OPENING NOTE PATIENT IN BED, ALERT/ORIENTED X 1, ABLE TO FOLLOW COMMANDS AND ANSWER YES/NO ONLY. CURRENTLY ON O2 AT 3L/MIN VIA N/C TOLERATING WELL. NO S/SX OF ACUTE RESPI DISTRESS NOTED AT THIS TIME. NO SIGNS OF PAIN OR DISCOMFORT. PATIENT ON TELE MONITOR SINUS RHYTM. VIJAY MIDLINE #18G INTACT AND PATENT, FLUSHES WELL. GTUBE INTACT, PATENT AND FLUSHING WELL. ALL SAFETY MEASURES IN PLACE: BED IN LOWEST POSITION AND LOCKED. BED ALARM ON. SIDE RAILS UP X3, CALL LIGHT WITHIN REACH.
[2022-03-13 07:44] LABS: ALBUMIN 2.1 g/dL (3.4-5.0); BILIRUBIN,TOTAL 0.4 mg/dL (0.2-1.0); CALCIUM, SERUM 12.1 mg/dL (8.5-10.1); MAGNESIUM 3.4 mg/dL (1.8-2.4); POTASSIUM 4.7 mmol/L (3.5-5.1); TOTAL PROTEIN, SERUM 7.3 g/dL (6.4-8.2)
[2022-03-13] MEDS: CALCIUM ACETATE 667 MG CAP/TAB PO SCH ×4 (08:00→17:15)
[2022-03-13 08:28] LABS: CREATININE 13.1 mg/dL (0.6-1.3)
[2022-03-13 08:29] LABS: PHOSPHORUS 10.2 mg/dL (2.5-4.9)
[2022-03-13] MEDS: MEROPENEM 500 MG in IV NS 0.9% 50 ML IV SCH ×2 (08:37→20:34)
[2022-03-13] MEDS: VIT B CMPLX 3/FA/VIT C/BIOTIN 1 TAB TABLET GT SCH ×2 (08:38→09:00)
[2022-03-13] MEDS: PANTOPRAZOLE 40 MG VIAL IV SCH ×2 (08:39→09:00)
[2022-03-13] MEDS: ZINC SULFATE 220 MG CAPSULE GT SCH ×2 (08:39→09:00)
[2022-03-13] MEDS: OLANZAPINE 2.5 MG TABLET GT SCH ×3 (08:39→17:15)
[2022-03-13] MEDS: ASPIRIN 81 MG TAB.CHEW GT SCH ×2 (08:39→09:00)
[2022-03-13] MEDS: LEVETIRACETAM SOL (5 ML) 100 MG/ML UDC GT SCH ×3 (08:39→20:34)
[2022-03-13] MEDS: ASCORBIC ACID 500 MG TABLET GT SCH ×2 (08:39→09:00)
[2022-03-13] MEDS: CARVEDILOL 6.25 MG TABLET GT SCH ×3 (08:40→17:17)
[2022-03-13] MEDS: LOSARTAN POTASSIUM 25 MG TABLET GT SCH ×2 (08:41→09:00)
[2022-03-13] MEDS: NEOMY SULF/BACITRAC ZN/POLY 15 GM TUBE TP SCH ×2 (08:42→17:18)
[2022-03-13 08:43] LABS: BASOPHILS # (AUTO) 0.1 K/uL (0.0-0.2); EOSINOPHILS % (AUTO) 4.2 % (0.0-6.0); HEMATOCRIT 22 % (39-51); HEMOGLOBIN 7.2 g/dL (13.5-17.5); LYMPHOCYTES # (AUTO) 1.3 K/uL (0.8-4.8); LYMPHOCYTES % (AUTO) 11.9 % (20.0-44.0); MEAN CORPUSCULAR HGB CONC 33 g/dl (31.0-36.0); MEAN CORPUSCULAR VOLUME 85 fL (80-96); MONOCYTES # (AUTO) 1.2 K/uL (0.1-1.30); MONOCYTES % (AUTO) 11.4 % (2.0-12.0); NEUTROPHILS # (AUTO) 7.8 K/uL (1.8-8.9); NEUTROPHILS % (AUTO) 71.5 % (43.0-81.0); PLATELET COUNT (AUTO) 363 K/uL (150-450); RED BLOOD CELL COUNT(AUTO) 2.61 MIL/uL (4.5-6.0); WHITE BLOOD COUNT (AUTO) 10.9 K/uL (4.3-11.0)
--- NOTE | 2022-03-13 09:00 | NUR ---
PAROLE AGENT NOTES PATIENT NOTED WITH BLEEDING FROM G-TUBE INSERTION SITE. MD NOTIFIED. TUBE FEEDING AND MEDS HELD PER MD ORDER.
--- NOTE | 2022-03-13 16:29 | NUR ---
STUMMEL SELECTOR NOTES PATIENT NOTED WITH NO FURTHER BLEEDING FROM G-TUBE SITE. MD NOTIFIED AND ADVISED TO RESUME MEDICATIONS AND TUBE FEEDINGS. ORDERS IMPLEMENTED.
[2022-03-13] MEDS: PANTOPRAZOLE 40 MG/PACK PACK GT SCH (17:15)
--- NOTE | 2022-03-13 19:30 | NUR ---
DISTRIBUTION OPERATIONS SUPERVISOR OPENING NOTES RECEIVED PATIENT LAYING IN BED AWAKE. A/O X1, DELAYED SPEECH. BREATHING EVEN AND NON-LABORED. ON O2 AT 3LPM VIA NASAL CANULA. NOT IN APPARENT DISTRESS. DENIES PAIN AT THIS TIME. ON TELE MONITOR READING SINUS RHYTHM AT 87 BPM. HAS RIGHT UPPER ARM MIDLINE AND SALINE LOCKED. NO S/S OF INFILTRATION NOTED. ON NEPRO G-TUBE FEEDING RUNNING AT 55 ML/HR. TUBE FEEDING WILL BE HOLD AT MIDNIGHT FOR PERMACATH PLACEMENT TOMORROW. SAFETY PRECAUTIONS IN PLACE: BED LOW AND LOCKED, SIDE RAILS UP X2, CALL LIGHT WITHIN REACH. WILL CONTINUE POC.
[2022-03-13 20:32] LABS: HEMOGLOBIN 6.7 g/dL (13.5-17.5)
--- NOTE | 2022-03-13 20:40 | NUR ---
ACOUSTIC ENGINEER NOTES RECEIVED CALL FROM [facility] (LAB) FOR CRITICAL RESULT H/H: 6.7. WILL NOTIFY MD FOR BT PER PLAN (TRANSFUSE IF HGB IS LESS THAN 7).
--- NOTE | 2022-03-13 21:10 | NUR ---
THERMOSTAT MAKER NOTES CALLED BLOOD BANK AND VERIFIED THEY RECEIVED THE 1 PRBC ORDER, WILL AWAIT FOR CALLBACK WHEN BLOOD IS READY. CALLED [phone] AND LEFT A VM REGARDING CONSENT ON PROCEDURE TOMORROW.
[2022-03-13] MEDS: SENNOSIDES 8.6 MG TABLET GT SCH (21:28)
--- NOTE | 2022-03-13 23:30 | NUR ---
HOSPICE VOLUNTEER COORDINATOR NOTES BLOOD TRANSFUSION STARTED. VS WNL. WILL CONTINUE TO MONITOR FOR ANY ADVERSE REACTION.
[2022-03-14] VITALS (9 sets, daily range): BP systolic 121–152; BP diastolic 65–91
--- NOTE | 2022-03-14 02:50 | NUR ---
REFRIGERATOR GLAZIER NOTES BLOOD TRANSFUSION COMPLETED, VS WNL. PATIENT IS IN STABLE CONDITION.
[2022-03-14] MEDS: METOPROLOL TARTRATE 50 MG TABLET GT SCH ×4 (05:28→23:27)
[2022-03-14 06:45] LABS: BASOPHILS # (AUTO) 0.1 K/uL (0.0-0.2); BASOPHILS % (AUTO) 1.2 % (0.0-2.0); EOSINOPHILS % (AUTO) 4.2 % (0.0-6.0); HEMATOCRIT 24 % (39-51); HEMOGLOBIN 7.9 g/dL (13.5-17.5); LYMPHOCYTES # (AUTO) 1.5 K/uL (0.8-4.8); LYMPHOCYTES % (AUTO) 13.8 % (20.0-44.0); MEAN CORPUSCULAR HGB CONC 33 g/dl (31.0-36.0); MEAN CORPUSCULAR VOLUME 85 fL (80-96); MONOCYTES # (AUTO) 1.2 K/uL (0.1-1.30); MONOCYTES % (AUTO) 11.4 % (2.0-12.0); NEUTROPHILS # (AUTO) 7.4 K/uL (1.8-8.9); NEUTROPHILS % (AUTO) 69.4 % (43.0-81.0); PLATELET COUNT (AUTO) 362 K/uL (150-450); WHITE BLOOD COUNT (AUTO) 10.7 K/uL (4.3-11.0)
--- NOTE | 2022-03-14 06:45 | NUR ---
CONTINUOUS MINER CLOSING NOTES PATIENT LAYING IN BED ASLEEP, EASY TO AROUSE. A/O X1, ABLE TO VERBALIZE SOME NEEDS. ON O2 AT 3LPM VIA NASAL CANULA, NO RESPIRATORY DISTRESS NOTED. AFEBRILE. NO C/O PAIN OR DISCOMFORT. ON TELE MONITOR READING SINUS RHYTHM AT 85 BPM. HAS RIGHT UPPER ARM MIDLINE WITH NS RUNNING TKO. INTACT, PATENT AND FLUSHING. TUBE FEEDING ON HOLD FOR PERMACATH PLACEMENT. NO RESIDUAL NOTED. ALL DUE MEDS GIVEN AND NEEDS ATTENDED. SKIN CARE RENDERED. OFFLOAD BUTTOCKS AND REPOSITIONED Q2H. KEPT HOB ELEVATED AT ALL TIMES. SAFETY PRECAUTIONS MAINTAINED. WILL ENDORSE TO NEXT SHIFT FOR UMESH.
--- NOTE | 2022-03-14 07:40 | NUR ---
OUTSIDE SALES INSPECTOR OPENING NOTE PATIENT RECEIVED LAYING IN BED AWAKE. A/O X1 WITH OBSERVED DELAYED SPEECH. NO S/SX OF RESPIRATORY DISTRESS OBSERVED. REMAINS ON SUPPLEMENTAL O2 VIA NASAL CANULA AT 3LPM. TOLERATING WELL. IV ACCESS TO RIGHT UPPER ARM MIDLINE SALINE LOCKED, INTACT AND PATENT. NO S/S OF INFILTRATION NOTED. SAFETY PRECAUTIONS IN PLACE WITH BED LOW AND LOCKED, SIDE RAILS UP X2, CALL LIGHT WITHIN REACH. WILL CONTINUE POC.
[2022-03-14 07:45] LABS: ALBUMIN 2.1 g/dL (3.4-5.0); BILIRUBIN,TOTAL 0.4 mg/dL (0.2-1.0); CALCIUM, SERUM 12.3 mg/dL (8.5-10.1); MAGNESIUM 3.3 mg/dL (1.8-2.4); POTASSIUM 4.8 mmol/L (3.5-5.1); TOTAL PROTEIN, SERUM 7.2 g/dL (6.4-8.2)
[2022-03-14 08:22] LABS: CREATININE 14.4 mg/dL (0.6-1.3); PHOSPHORUS 10.5 mg/dL (2.5-4.9)
[2022-03-14] MEDS: MEROPENEM 500 MG in IV NS 0.9% 50 ML IV SCH (08:26)
[2022-03-14] MEDS: CALCIUM ACETATE 667 MG CAP/TAB PO SCH ×3 (08:48→17:26)
[2022-03-14] MEDS: ZINC SULFATE 220 MG CAPSULE GT SCH (08:48)
[2022-03-14] MEDS: PANTOPRAZOLE 40 MG/PACK PACK GT SCH ×2 (08:55→17:26)
[2022-03-14] MEDS: LEVETIRACETAM SOL (5 ML) 100 MG/ML UDC GT SCH ×2 (08:55→23:27)
[2022-03-14] MEDS: ASPIRIN 81 MG TAB.CHEW GT SCH (08:56)
[2022-03-14] MEDS: OLANZAPINE 2.5 MG TABLET GT SCH ×2 (08:56→17:27)
[2022-03-14] MEDS: ASCORBIC ACID 500 MG TABLET GT SCH (08:56)
[2022-03-14] MEDS: CARVEDILOL 6.25 MG TABLET GT SCH ×2 (08:56→17:27)
[2022-03-14] MEDS: VIT B CMPLX 3/FA/VIT C/BIOTIN 1 TAB TABLET GT SCH (08:57)
[2022-03-14] MEDS: NEOMY SULF/BACITRAC ZN/POLY 15 GM TUBE TP SCH ×2 (08:57→17:27)
[2022-03-14] MEDS: LOSARTAN POTASSIUM 25 MG TABLET GT SCH (08:57)
[2022-03-14] MEDS ORDERED: IOHEXOL 50 ML IV ONE (09:59)
[2022-03-14] MEDS ORDERED: HEPARIN SODIUM, PORCINE 1,000 UNIT/ML VIAL ONE (09:59)
[2022-03-14] MEDS ORDERED: LIDOCAINE 1% INJ 50 ML MDV IJ ONE (09:59)
--- NOTE | 2022-03-14 10:00 | NUR ---
RN NOTE PATIENT TAKEN OFF UNIT @ 0950 TO SURGERY DEPART FOR PLACEMENT OF PERMACATH.
[2022-03-14] MEDS ORDERED: FENTANYL PF 100MCG/2ML AMPUL ONE (10:11)
--- NOTE | 2022-03-14 13:10 | NUR ---
RN NOTE PATIENT RETURNED BACK TO UNIT @ 1215 VIA BED FROM SURGERY DEPARTMENT. VITAL SIGNS STABLE AND WNL. BEDSIDE HD TO RESUME. 1200/1300 MEDICATIONS HELD PER DIALYSIS NURSE.
[2022-03-14] MEDS ORDERED: DEXAMETHASONE SOD PHOSPHATE 4 MG/ML VIAL IV ONE (14:43)
[2022-03-14] MEDS ORDERED: PROPOFOL 200 MG/20 ML VIAL IV ONE (14:43)
[2022-03-14] MEDS: HEPARIN SODIUM, PORCINE 5000 UNITS/1 ML VIAL SQ SCH (17:00)
--- NOTE | 2022-03-14 19:47 | NUR ---
CAMERA SYSTEMS ENGINEER CLOSING NOTE PATIENT REMAINED LAYING IN BED AND INTERMITTENTLY AWAKE. A/O X1 WITH OBSERVED MINIMAL DELAYED SPEECH. NO S/SX OF RESPIRATORY DISTRESS OBSERVED. REMAINS ON SUPPLEMENTAL O2 VIA NASAL CANULA AT 3LPM. TOLERATING WELL. IV ACCESS TO RIGHT UPPER ARM MIDLINE SALINE LOCKED, INTACT AND PATENT. NO S/S OF INFILTRATION NOTED. SAFETY PRECAUTIONS IN PLACE WITH BED LOW AND LOCKED, SIDE RAILS UP X2, CALL LIGHT WITHIN REACH. WILL CONTINUE POC.
[2022-03-14] MEDS: SENNOSIDES 8.6 MG TABLET GT SCH (23:28)
[2022-03-15] VITALS: BP 113/75
--- NOTE | 2022-03-15 01:20 | NUR ---
RN NOTE Report received from Radha Ventura RN(Registry), patient in bed, on semi mckinney's, AO x 1, saturation at 95% on 3L via nc, SR on the monitor, HR is 98. VIJAY midline patent and flushing well. Permacath in place at R groin, dressing dry and intact. Mittens in place, skin and circulation checked and are WNL. Safety measures in place, bed is locked and at lowest position, call light within reach. Will cont to monitor and reassess.
[2022-03-15 04:00] VITALS: BP 120/75
[2022-03-15] MEDS: METOPROLOL TARTRATE 50 MG TABLET GT SCH ×3 (06:03→18:13)
[2022-03-15 06:42] LABS: CALCIUM, SERUM 10.8 mg/dL (8.5-10.1); MAGNESIUM 2.7 mg/dL (1.8-2.4); PHOSPHORUS 6.5 mg/dL (2.5-4.9); POTASSIUM 4.1 mmol/L (3.5-5.1)
[2022-03-15 06:49] LABS: CREATININE 9.6 mg/dL (0.6-1.3)
[2022-03-15 06:50] LABS: BASOPHILS # (AUTO) 0.1 K/uL (0.0-0.2); BASOPHILS % (AUTO) 0.8 % (0.0-2.0); EOSINOPHILS % (AUTO) 3.9 % (0.0-6.0); HEMATOCRIT 23 % (39-51); HEMOGLOBIN 7.6 g/dL (13.5-17.5); LYMPHOCYTES # (AUTO) 0.9 K/uL (0.8-4.8); LYMPHOCYTES % (AUTO) 11.3 % (20.0-44.0); MEAN CORPUSCULAR HGB CONC 34 g/dl (31.0-36.0); MEAN CORPUSCULAR VOLUME 84 fL (80-96); MONOCYTES # (AUTO) 1.1 K/uL (0.1-1.30); MONOCYTES % (AUTO) 12.8 % (2.0-12.0); NEUTROPHILS % (AUTO) 71.2 % (43.0-81.0); PLATELET COUNT (AUTO) 364 K/uL (150-450); RED BLOOD CELL COUNT(AUTO) 2.69 MIL/uL (4.5-6.0); WHITE BLOOD COUNT (AUTO) 8.4 K/uL (4.3-11.0)
--- NOTE | 2022-03-15 07:10 | NUR ---
MANAGER TALENT OPENING NOTE PATIENT RECEIVED LAYING IN BED Asleep. . NO S/SX OF RESPIRATORY DISTRESS OBSERVED. REMAINS ON SUPPLEMENTAL O2 VIA NASAL CANULA AT 3LPM. TOLERATING WELL. IV ACCESS TO RIGHT UPPER ARM MIDLINE SALINE LOCKED, INTACT AND PATENT. NO S/S OF INFILTRATION NOTED.GTF OFF WILL BE TURN ON AT 12 NOON. SAFETY PRECAUTIONS IN PLACE WITH BED LOW AND LOCKED, SIDE RAILS UP X2, CALL LIGHT WITHIN REACH. WILL MONITOR
[2022-03-15 08:00] VITALS: BP 150/76
[2022-03-15] MEDS: CARVEDILOL 6.25 MG TABLET GT SCH ×2 (09:11→16:46)
[2022-03-15] MEDS: ASPIRIN 81 MG TAB.CHEW GT SCH (09:11)
[2022-03-15] MEDS: CALCIUM ACETATE 667 MG CAP/TAB PO SCH ×3 (09:11→18:13)
[2022-03-15] MEDS: LOSARTAN POTASSIUM 25 MG TABLET GT SCH (09:12)
[2022-03-15] MEDS: LEVETIRACETAM SOL (5 ML) 100 MG/ML UDC GT SCH ×2 (09:12→21:17)
[2022-03-15] MEDS: PANTOPRAZOLE 40 MG/PACK PACK GT SCH ×2 (09:12→16:46)
[2022-03-15] MEDS: ZINC SULFATE 220 MG CAPSULE GT SCH (09:12)
[2022-03-15] MEDS: VIT B CMPLX 3/FA/VIT C/BIOTIN 1 TAB TABLET GT SCH (09:12)
[2022-03-15] MEDS: ASCORBIC ACID 500 MG TABLET GT SCH (09:12)
[2022-03-15] MEDS: OLANZAPINE 2.5 MG TABLET GT SCH ×2 (09:13→16:46)
[2022-03-15] MEDS: HEPARIN SODIUM, PORCINE 5000 UNITS/1 ML VIAL SQ SCH ×2 (09:14→16:47)
[2022-03-15] MEDS: NEOMY SULF/BACITRAC ZN/POLY 15 GM TUBE TP SCH ×2 (09:34→17:00)
[2022-03-15 12:00] VITALS: BP 131/79
--- NOTE | 2022-03-15 12:36 | NUR ---
RN notes: metoprolol not given pt is receiving dialysis,bp 131/79, HR 79
[2022-03-15] MEDS ORDERED: NEPRO 1,000 ML BOTTLE GT PRN (14:00)
--- NOTE | 2022-03-15 15:15 | NUR ---
rn notes: dialysis completed without any complications, germán 137/72,pharmacy called i can give a vanco zayas today after dialysis
[2022-03-15] MEDS: VANCOMYCIN POST DIALYSIS 500MG IV PRN ×2 (15:44)
[2022-03-15 16:00] VITALS: BP 129/73
--- NOTE | 2022-03-15 19:10 | NUR ---
CREDIT REVIEW ANALYST CLOSING NOTE PATIENT REMAINED LAYING IN BED AND INTERMITTENTLY AWAKE. A/O X1 WITH OBSERVED no SPEECH. NO S/SX OF RESPIRATORY DISTRESS OBSERVED. REMAINS ON SUPPLEMENTAL O2 VIA NASAL CANULA AT 3LPM. TOLERATING WELL. IV ACCESS TO RIGHT UPPER ARM MIDLINE INTACT AND PATENT. NO S/S OF INFILTRATION NOTED. GT RUNNING NEPRO 55 ML/HR, TOLERATEDF WELL. SAFETY PRECAUTIONS IN PLACE WITH BED LOW AND LOCKED, SIDE RAILS UP X2, CALL LIGHT WITHIN REACH. ENDORSED FOR DRAWING MACHINE OPERATOR RN.
[2022-03-15 20:00] VITALS: BP 120/71
--- NOTE | 2022-03-15 20:00 | NUR ---
BENDING PRESS OPERATOR NOTE PT IN BED AWAKE. A/O X 1, ON 3L O2 VIA NC O2 SAT 100%. NO SOB, NO DISTRESS OR DISCOMFORT NOTED. NO S/S OF PAIN NOTED. ON TELE SR HR 93. PT HAS RT HAND MITTENS ON. ALSO GTF NEPRO INFUSING AT 55 ML/HR, 0 ML RESIDUAL NOTED. VIJAY MIDLINE INTACT AND PATENT ALSO RT GROINING HD CATH INTACT. KEPT HIM DRY AND CLEAN. ALL NEEDS ATTENDED. VSS. CONTINUE TO MONITOR HIM.
[2022-03-15] MEDS: SENNOSIDES 8.6 MG TABLET GT SCH (21:17)
[2022-03-16] VITALS: BP 100/71
[2022-03-16 04:00] VITALS: BP 136/82
[2022-03-16] MEDS: METOPROLOL TARTRATE 50 MG TABLET GT SCH ×4 (05:51→17:14)
--- NOTE | 2022-03-16 06:56 | NUR ---
COOK MANAGER NOTE PT IN BED AWAKE NO SOB, NO DISTRESS OR DISCOMFORT NOTED. ON TELE SR KEPT HIM DRY AND CLEAN. ALL NEEDS ATTENDED. WILL ENDORSE TO DAY SHIFT NURSE FOR CONTINUE TO CARE.
[2022-03-16 07:32] LABS: BASOPHILS # (AUTO) 0.1 K/uL (0.0-0.2); EOSINOPHILS % (AUTO) 4.5 % (0.0-6.0); HEMATOCRIT 21 % (39-51); HEMOGLOBIN 7.2 g/dL (13.5-17.5); LYMPHOCYTES # (AUTO) 1.3 K/uL (0.8-4.8); LYMPHOCYTES % (AUTO) 15.7 % (20.0-44.0); MEAN CORPUSCULAR HGB CONC 34 g/dl (31.0-36.0); MEAN CORPUSCULAR VOLUME 84 fL (80-96); MONOCYTES # (AUTO) 1.1 K/uL (0.1-1.30); MONOCYTES % (AUTO) 13.5 % (2.0-12.0); NEUTROPHILS # (AUTO) 5.4 K/uL (1.8-8.9); NEUTROPHILS % (AUTO) 65.3 % (43.0-81.0); PLATELET COUNT (AUTO) 364 K/uL (150-450); RED BLOOD CELL COUNT(AUTO) 2.54 MIL/uL (4.5-6.0); WHITE BLOOD COUNT (AUTO) 8.3 K/uL (4.3-11.0)
[2022-03-16 07:45] LABS: CALCIUM, SERUM 10.9 mg/dL (8.5-10.1); MAGNESIUM 2.6 mg/dL (1.8-2.4); PHOSPHORUS 5.7 mg/dL (2.5-4.9); POTASSIUM 4.1 mmol/L (3.5-5.1)
[2022-03-16 08:00] VITALS: BP 142/90
[2022-03-16 08:20] LABS: CREATININE 8.7 mg/dL (0.6-1.3)
[2022-03-16] MEDS: LEVETIRACETAM SOL (5 ML) 100 MG/ML UDC GT SCH ×2 (08:54→21:32)
[2022-03-16] MEDS: PANTOPRAZOLE 40 MG/PACK PACK GT SCH ×2 (08:54→17:13)
[2022-03-16] MEDS: ASPIRIN 81 MG TAB.CHEW GT SCH (08:55)
[2022-03-16] MEDS: VIT B CMPLX 3/FA/VIT C/BIOTIN 1 TAB TABLET GT SCH (08:55)
[2022-03-16] MEDS: OLANZAPINE 2.5 MG TABLET GT SCH ×2 (08:55→17:12)
[2022-03-16] MEDS: LOSARTAN POTASSIUM 25 MG TABLET GT SCH (08:55)
[2022-03-16] MEDS: CARVEDILOL 6.25 MG TABLET GT SCH ×2 (08:56→17:13)
[2022-03-16] MEDS: ZINC SULFATE 220 MG CAPSULE GT SCH (08:56)
[2022-03-16] MEDS: CALCIUM ACETATE 667 MG CAP/TAB PO SCH ×3 (08:56→17:13)
[2022-03-16] MEDS: ASCORBIC ACID 500 MG TABLET GT SCH (08:56)
[2022-03-16] MEDS: NEOMY SULF/BACITRAC ZN/POLY 15 GM TUBE TP SCH ×2 (09:03→16:59)
[2022-03-16] MEDS: HEPARIN SODIUM, PORCINE 5000 UNITS/1 ML VIAL SQ SCH ×2 (09:17→17:18)
[2022-03-16 12:00] VITALS: BP 133/93
[2022-03-16] MEDS: NEPRO 1,000 ML BOTTLE GT PRN (12:58)
[2022-03-16 16:00] VITALS: BP 125/86
--- NOTE | 2022-03-16 19:10 | NUR ---
RN CLOSING NOTE PATIENT REMAINED LAYING IN BED AND INTERMITTENTLY AWAKE. A/O X1 WITH MINIMAL DELAYED COMMUNICATION. NO S/S OF SOB. REMAINS ON O2 VIA NASAL CANULA AT 3LPM. TOLERATING WELL. IV ACCESS TO RIGHT UPPER ARM MIDLINE SALINE LOCKED, INTACT AND PATENT. NO S/S OF INFILTRATION NOTED. HD STARTED AT 1730 PATIENT'S VITALS SIGNS STABLE NOW DURING THE HD. ALL SAFETY PRECAUTIONS IN PLACE WITH BED LOW AND LOCKED, SIDE RAILS UP X2, CALL LIGHT WITHIN REACH. WILL ENDORSE THE PATIENT FOR UMESH.
[2022-03-16 20:00] VITALS: BP 125/80
--- NOTE | 2022-03-16 20:00 | NUR ---
POULTRY CUTTER NOTE PT IN BED A/OX 1, NO DISTRESS OR DISCOMFORT NOTED. NO S/S OF PAIN NOTED. ON TELE SR 94. ON O2 3L VIA N/C O2 SAT 100%. GTF INFUSING WELL, 0 ML RESIDUAL NOTED. KEPT HIM DRY AND CLEAN. ALL NEEDS ATTENDED. VSS. CONTINUE TO MONITOR HIM.
[2022-03-16] MEDS: SENNOSIDES 8.6 MG TABLET GT SCH (21:32)
[2022-03-17] VITALS: BP 112/77
[2022-03-17] MEDS: METOPROLOL TARTRATE 50 MG TABLET GT SCH ×4 (00:33→17:08)
[2022-03-17 04:00] VITALS: BP 139/82
[2022-03-17 05:50] LABS: BASOPHILS # (AUTO) 0.1 K/uL (0.0-0.2); BASOPHILS % (AUTO) 0.7 % (0.0-2.0); EOSINOPHILS % (AUTO) 4.6 % (0.0-6.0); HEMATOCRIT 22 % (39-51); HEMOGLOBIN 7.5 g/dL (13.5-17.5); LYMPHOCYTES # (AUTO) 1.1 K/uL (0.8-4.8); MEAN CORPUSCULAR HGB CONC 34 g/dl (31.0-36.0); MEAN CORPUSCULAR VOLUME 84 fL (80-96); MONOCYTES # (AUTO) 1.2 K/uL (0.1-1.30); MONOCYTES % (AUTO) 13.6 % (2.0-12.0); NEUTROPHILS # (AUTO) 5.8 K/uL (1.8-8.9); NEUTROPHILS % (AUTO) 68.1 % (43.0-81.0); PLATELET COUNT (AUTO) 379 K/uL (150-450); RED BLOOD CELL COUNT(AUTO) 2.65 MIL/uL (4.5-6.0); WHITE BLOOD COUNT (AUTO) 8.6 K/uL (4.3-11.0)
[2022-03-17 06:20] LABS: CALCIUM, SERUM 10.1 mg/dL (8.5-10.1); CREATININE 5.5 mg/dL (0.6-1.3); MAGNESIUM 2.2 mg/dL (1.8-2.4); PHOSPHORUS 3.4 mg/dL (2.5-4.9); POTASSIUM 3.7 mmol/L (3.5-5.1)
--- NOTE | 2022-03-17 06:48 | NUR ---
DINING CAR STEWARD NOTE PT IN BED ALERT/A, NO DISTRESS OR DISCOMOFRT NOTED. NO S/S OF PAIN NOTED. ON TELE SR. GTF STOPPED SCHDULED. KEPT HIM DRY AND CLEAN. ALL NEEDS ATTENDED. WILL ENDORSE TO DAY SHIFT NURSE FOR CONTINUE TO CARE.
[2022-03-17 08:00] VITALS: BP 138/86
[2022-03-17] MEDS: VIT B CMPLX 3/FA/VIT C/BIOTIN 1 TAB TABLET GT SCH (08:43)
[2022-03-17] MEDS: ZINC SULFATE 220 MG CAPSULE GT SCH (08:44)
[2022-03-17] MEDS: CALCIUM ACETATE 667 MG CAP/TAB PO SCH ×3 (08:44→18:35)
[2022-03-17] MEDS: LEVETIRACETAM SOL (5 ML) 100 MG/ML UDC GT SCH ×2 (08:44→21:40)
[2022-03-17] MEDS: PANTOPRAZOLE 40 MG/PACK PACK GT SCH ×2 (08:44→16:12)
[2022-03-17] MEDS: ASCORBIC ACID 500 MG TABLET GT SCH (08:45)
[2022-03-17] MEDS: ASPIRIN 81 MG TAB.CHEW GT SCH (08:45)
[2022-03-17] MEDS: HEPARIN SODIUM, PORCINE 5000 UNITS/1 ML VIAL SQ SCH ×2 (08:46→16:15)
[2022-03-17] MEDS: NEOMY SULF/BACITRAC ZN/POLY 15 GM TUBE TP SCH ×2 (08:46→16:13)
[2022-03-17] MEDS: OLANZAPINE 2.5 MG TABLET GT SCH ×2 (08:48→16:12)
[2022-03-17] MEDS: LOSARTAN POTASSIUM 25 MG TABLET GT SCH (08:48)
[2022-03-17] MEDS: CARVEDILOL 6.25 MG TABLET GT SCH ×2 (08:49→17:08)
[2022-03-17 12:00] VITALS: BP 125/82
[2022-03-17] MEDS: NEPRO 1,000 ML BOTTLE GT PRN (15:26)
[2022-03-17] MEDS: ACETAMINOPHEN 650 MG/20.3 ML UDC GT PRN (15:52)
[2022-03-17 16:00] VITALS: BP 141/76
--- NOTE | 2022-03-17 19:25 | NUR ---
RN OPENING NOTE RECEIVED PATIENT IN BED AWAKE, NON VERBAL, BUT CAN SHAKE HIS HEAD IN RESPONSE. ON 2L VIA NC, NO S/S OF ACUTE DISTRESS,TELE MONITOR READING SR. VIJAY M/L INTACT AND PATENT. R FEMORAL HD CATHETER. G TUBE INTACT AND PATENT, RUNNING NEPRO@75ML/HR. ALL SAFETY MEASURES IN PLACE, BED ALARM ON, BED IN LOW LOCK POSITION, CALL LIGHT AND TABLE WITHIN EASY REACH, SIDE RAILS UP X2. WILL CONTINUE TO MONITOR THROUGHOUT SHIFT.
[2022-03-17 20:00] VITALS: BP 111/52
[2022-03-17] MEDS: SENNOSIDES 8.6 MG TABLET GT SCH (21:40)
[2022-03-18] VITALS: BP 123/79
[2022-03-18] MEDS: METOPROLOL TARTRATE 50 MG TABLET GT SCH ×4 (00:35→17:29)
[2022-03-18 04:00] VITALS: BP 146/92
--- NOTE | 2022-03-18 06:50 | NUR ---
RN CLOSING NOTE PT IN BED AWAKE, NON VERBAL, BUT CAN SHAKE HIS HEAD IN RESPONSE. ON 2L VIA NC, NO S/S OF ACUTE DISTRESS,TELE MONITOR READING SR/ST. LHAND #18G NOT INTACT, VIJAY M/L INTACT AND PATENT. R FEMORAL HD CATHETER. G TUBE INTACT AND PATENT,CURRENTLY NOT RUNNING. ALL DUE MEDS GIVEN. ALL SAFETY MEASURES IN PLACE: BED LOCKED IN LOW POSITION, SR UP X 2, BED ALARM ON. HOB ELEVATED. CALL LIGHT WITHIN REACH. WILL ENDORSE TO MORNING SHIFT FOR UMESH.
--- NOTE | 2022-03-18 07:15 | NUR ---
RN notes Received patient in bed, resting without complaint. Telemetry showed SR with 88 bpm. On 3L oxygen via NC, RR 20/min. VIJAY midline and R femoral HD cath are dry and intact. Call aviles is placed within reach. Bed is locked and placed in lowest position. All safety measures are implemented. Will continue to monitor.
[2022-03-18 07:28] LABS: ALBUMIN 2.2 g/dL (3.4-5.0); BILIRUBIN,TOTAL 0.3 mg/dL (0.2-1.0); CALCIUM, SERUM 10.6 mg/dL (8.5-10.1); MAGNESIUM 2.4 mg/dL (1.8-2.4); PHOSPHORUS 5.3 mg/dL (2.5-4.9); POTASSIUM 4.5 mmol/L (3.5-5.1); TOTAL PROTEIN, SERUM 7.7 g/dL (6.4-8.2)
[2022-03-18 07:38] LABS: BASOPHILS # (AUTO) 0.1 K/uL (0.0-0.2); BASOPHILS % (AUTO) 0.8 % (0.0-2.0); EOSINOPHILS % (AUTO) 6.3 % (0.0-6.0); HEMATOCRIT 25 % (39-51); HEMOGLOBIN 8.3 g/dL (13.5-17.5); LYMPHOCYTES # (AUTO) 1.4 K/uL (0.8-4.8); LYMPHOCYTES % (AUTO) 13.9 % (20.0-44.0); MEAN CORPUSCULAR HGB CONC 33 g/dl (31.0-36.0); MEAN CORPUSCULAR VOLUME 85 fL (80-96); MONOCYTES % (AUTO) 9.9 % (2.0-12.0); NEUTROPHILS # (AUTO) 6.9 K/uL (1.8-8.9); NEUTROPHILS % (AUTO) 69.1 % (43.0-81.0); PLATELET COUNT (AUTO) 407 K/uL (150-450); RED BLOOD CELL COUNT(AUTO) 2.95 MIL/uL (4.5-6.0)
[2022-03-18 07:47] LABS: CREATININE 7.4 mg/dL (0.6-1.3)
[2022-03-18 08:00] VITALS: BP 132/80
[2022-03-18] MEDS: ZINC SULFATE 220 MG CAPSULE GT SCH (09:31)
[2022-03-18] MEDS: ASCORBIC ACID 500 MG TABLET GT SCH (09:32)
[2022-03-18] MEDS: CARVEDILOL 6.25 MG TABLET GT SCH ×2 (09:32→17:29)
[2022-03-18] MEDS: LOSARTAN POTASSIUM 25 MG TABLET GT SCH (09:32)
[2022-03-18] MEDS: LEVETIRACETAM SOL (5 ML) 100 MG/ML UDC GT SCH ×2 (09:32→21:35)
[2022-03-18] MEDS: OLANZAPINE 2.5 MG TABLET GT SCH ×2 (09:32→17:28)
[2022-03-18] MEDS: PANTOPRAZOLE 40 MG/PACK PACK GT SCH ×2 (09:32→17:28)
[2022-03-18] MEDS: ASPIRIN 81 MG TAB.CHEW GT SCH (09:32)
[2022-03-18] MEDS: VIT B CMPLX 3/FA/VIT C/BIOTIN 1 TAB TABLET GT SCH (09:33)
[2022-03-18] MEDS: HEPARIN SODIUM, PORCINE 5000 UNITS/1 ML VIAL SQ SCH ×2 (09:34→17:31)
[2022-03-18] MEDS: NEOMY SULF/BACITRAC ZN/POLY 15 GM TUBE TP SCH ×2 (09:34→17:32)
[2022-03-18] MEDS: CALCIUM ACETATE 667 MG CAP/TAB PO SCH ×3 (09:38→17:29)
--- NOTE | 2022-03-18 10:00 | NUR ---
RN notes Tailed down oxygen to 2L via NC, Spo2 98%, RR 20/min. Will continue to monitor.
[2022-03-18 12:00] VITALS: BP 123/86
[2022-03-18 16:00] VITALS: BP 128/80
--- NOTE | 2022-03-18 16:00 | NUR ---
RN notes Tried tail down oxygen to RA, desaturated to 88%, RR 20/min. Gave back 1L via NC. Continue to monitor.
[2022-03-18] MEDS: VANCOMYCIN POST DIALYSIS 500MG IV PRN ×2 (17:27)
--- NOTE | 2022-03-18 18:45 | NUR ---
RN closing notes Patient is alert without active complaint. Telemetry showed SR HR 89/min. VS WNL. HD was done with post vancomycin administered. Right UA midline is intact. R femoral HD is intact. Circulation of right hand is good with the use of restraint. Call aviles is placed within reach. Bed is locked and placed in lowest position. All safety measures are implemented. Will endorse RN to continue care.
[2022-03-18 20:00] VITALS: BP 105/73
[2022-03-18] MEDS: SENNOSIDES 8.6 MG TABLET GT SCH (21:35)
[2022-03-19] VITALS: BP 118/72
[2022-03-19] MEDS: METOPROLOL TARTRATE 50 MG TABLET GT SCH ×2 (00:39→06:44)
[2022-03-19 04:00] VITALS: BP 130/84
[2022-03-19 06:49] LABS: BASOPHILS # (AUTO) 0.1 K/uL (0.0-0.2); BASOPHILS % (AUTO) 1.1 % (0.0-2.0); EOSINOPHILS % (AUTO) 7.4 % (0.0-6.0); HEMATOCRIT 23 % (39-51); HEMOGLOBIN 7.7 g/dL (13.5-17.5); LYMPHOCYTES # (AUTO) 1.3 K/uL (0.8-4.8); LYMPHOCYTES % (AUTO) 15.1 % (20.0-44.0); MEAN CORPUSCULAR HGB CONC 33 g/dl (31.0-36.0); MEAN CORPUSCULAR VOLUME 85 fL (80-96); MONOCYTES # (AUTO) 0.9 K/uL (0.1-1.30); MONOCYTES % (AUTO) 11.3 % (2.0-12.0); NEUTROPHILS # (AUTO) 5.4 K/uL (1.8-8.9); NEUTROPHILS % (AUTO) 65.1 % (43.0-81.0); PLATELET COUNT (AUTO) 383 K/uL (150-450); RED BLOOD CELL COUNT(AUTO) 2.74 MIL/uL (4.5-6.0); WHITE BLOOD COUNT (AUTO) 8.3 K/uL (4.3-11.0)
[2022-03-19 06:59] LABS: CALCIUM, SERUM 10.1 mg/dL (8.5-10.1); MAGNESIUM 2.6 mg/dL (1.8-2.4); PHOSPHORUS 3.7 mg/dL (2.5-4.9); POTASSIUM 4.1 mmol/L (3.5-5.1)
--- NOTE | 2022-03-19 07:10 | NUR ---
RN CLOSING NOTE PATIENT IN BED AWAKE, NON VERBAL, BUT CAN SHAKE HIS HEAD IN RESPONSE. ON 2L VIA NC, NO S/S OF ACUTE DISTRESS,TELE MONITOR READING SR. VIJAY M/L INTACT AND PATENT. R FEMORAL HD CATHETER. G TUBE INTACT AND PATENT, RUNNING NEPRO@75ML/HR. ALL DUE MEDS GIVEN. ALL SAFETY MEASURES IN PLACE: BED LOCKED IN LOW POSITION, SR UP X 2, BED ALARM ON. HOB ELEVATED. CALL LIGHT WITHIN REACH. WILL ENDORSE TO MORNING SHIFT FOR UMESH
[2022-03-19 08:00] VITALS: BP 115/68
[2022-03-19] MEDS: VIT B CMPLX 3/FA/VIT C/BIOTIN 1 TAB TABLET GT SCH (09:03)
[2022-03-19] MEDS: OLANZAPINE 2.5 MG TABLET GT SCH (09:03)
[2022-03-19] MEDS: LEVETIRACETAM SOL (5 ML) 100 MG/ML UDC GT SCH (09:03)
[2022-03-19] MEDS: ASPIRIN 81 MG TAB.CHEW GT SCH (09:04)
[2022-03-19] MEDS: PANTOPRAZOLE 40 MG/PACK PACK GT SCH (09:04)
[2022-03-19] MEDS: ZINC SULFATE 220 MG CAPSULE GT SCH (09:04)
[2022-03-19] MEDS: ASCORBIC ACID 500 MG TABLET GT SCH (09:04)
[2022-03-19 09:05] VITALS: BP 115/68
[2022-03-19] MEDS: LOSARTAN POTASSIUM 25 MG TABLET GT SCH (09:05)
[2022-03-19] MEDS: CARVEDILOL 6.25 MG TABLET GT SCH (09:05)
[2022-03-19] MEDS: CALCIUM ACETATE 667 MG CAP/TAB PO SCH (09:05)
[2022-03-19] MEDS: HEPARIN SODIUM, PORCINE 5000 UNITS/1 ML VIAL SQ SCH (09:11)
[2022-03-19] MEDS: NEOMY SULF/BACITRAC ZN/POLY 15 GM TUBE TP SCH (09:12)
--- NOTE | 2022-03-19 11:55 | NUR ---
patient discharged to shelter at this time via ambulance in the company of two attendants.
== END 2022-03-19 14:42 | DRG 280 ==
LOC: ER 21:11 → TRANSITION 02-27 23:03 → TELE1 02-28 08:17 → TELE-TD 02-28 09:19 → ICU 03-02 15:43 → TELE1 03-03 18:42 → TELE-TD 03-04 00:52 → TELE1 03-04 08:40 → MEDSG1 03-19 10:31
PROVIDERS: ADMIT Nurse Practitioner Acute Care; ATTEND Student in an Organized Health Care Education/Training Program
PROC: 5A1D70Z Performance of Urinary Filtration, Intermittent, Less than 6 Hours Per Day (ICD-10-PCS; 2022-02-27)
PROC: 5A09357 Assistance with Respiratory Ventilation, Less than 24 Consecutive Hours, Continuous Positive Airway Pressure (ICD-10-PCS; principal; 2022-03-02)
PROC: 0J2SXYZ Change Other Device in Head and Neck Subcutaneous Tissue and Fascia, External Approach (ICD-10-PCS; 2022-03-02)
PROC: 30233N1 Transfusion of Nonautologous Red Blood Cells into Peripheral Vein, Percutaneous Approach (ICD-10-PCS; 2022-03-06)
PROC: 05H933Z Insertion of Infusion Device into Right Brachial Vein, Percutaneous Approach (ICD-10-PCS; 2022-03-06)
PROC: 0JPV3XZ Removal of Tunneled Vascular Access Device from Upper Extremity Subcutaneous Tissue and Fascia, Percutaneous Approach (ICD-10-PCS; 2022-03-08)
PROC: 05PYX3Z Removal of Infusion Device from Upper Vein, External Approach (ICD-10-PCS; 2022-03-08)
PROC: 0JHN3XZ Insertion of Tunneled Vascular Access Device into Right Lower Leg Subcutaneous Tissue and Fascia, Percutaneous Approach (ICD-10-PCS; 2022-03-14)
PROC: B54BZZA Ultrasonography of Right Lower Extremity Veins, Guidance (ICD-10-PCS; 2022-03-14)
PROC: 06HM33Z Insertion of Infusion Device into Right Femoral Vein, Percutaneous Approach (ICD-10-PCS; 2022-03-14)
PROC: B513YZZ Fluoroscopy of Right Jugular Veins using Other Contrast (ICD-10-PCS; 2022-03-14)
DX: T80.211A Bloodstream infection due to central venous catheter, initial encounter (principal); I21.4 Non-ST elevation (NSTEMI) myocardial infarction; A41.02 Sepsis due to Methicillin resistant Staphylococcus aureus; I50.23 Acute on chronic systolic (congestive) heart failure; R65.20 Severe sepsis without septic shock; J69.0 Pneumonitis due to inhalation of food and vomit; N18.6 End stage renal disease; J96.02 Acute respiratory failure with hypercapnia; I71.00 Dissection of unspecified site of aorta; G93.1 Anoxic brain damage, not elsewhere classified; I13.2 Hypertensive heart and chronic kidney disease with heart failure and with stage 5 chronic kidney disease, or end stage renal disease; I42.2 Other hypertrophic cardiomyopathy; J98.11 Atelectasis; K94.23 Gastrostomy malfunction; I71.40 Abdominal aortic aneurysm, without rupture, unspecified; Z20.822 Contact with and (suspected) exposure to COVID-19; Z87.820 Personal history of traumatic brain injury; Z99.2 Dependence on renal dialysis; R27.8 Other lack of coordination; Z74.01 Bed confinement status; Z86.2 Personal history of diseases of the blood and blood-forming organs and certain disorders involving the immune mechanism; Z86.79 Personal history of other diseases of the circulatory system; Z95.828 Presence of other vascular implants and grafts; Z79.899 Other long term (current) drug therapy; D63.8 Anemia in other chronic diseases classified elsewhere; G40.909 Epilepsy, unspecified, not intractable, without status epilepticus; F20.9 Schizophrenia, unspecified; K21.9 Gastro-esophageal reflux disease without esophagitis; D69.6 Thrombocytopenia, unspecified; K76.0 Fatty (change of) liver, not elsewhere classified; M89.8X9 Other specified disorders of bone, unspecified site; R13.10 Dysphagia, unspecified; N28.1 Cyst of kidney, acquired; Z95.1 Presence of aortocoronary bypass graft; Y95 Nosocomial condition; Y83.3 Surgical operation with formation of external stoma as the cause of abnormal reaction of the patient, or of later complication, without mention of misadventure at the time of the procedure; Y92.9 Unspecified place or not applicable; Y82.8 Other medical devices associated with adverse incidents; R26.9 Unspecified abnormalities of gait and mobility; Z98.890 Other specified postprocedural states
CPT/HCPCS: 36410; 36415; 36600; 71045-TC; 74018; 76705-TC; 80048-TC; 80053-TC; 80076-TC; 80202-TC; 82803-TC; 83735-TC; 83880; 84100-TC; 84484-TC; 85025-TC; 85027-TC; 85378-TC; 85730-TC; 86706; 86850-TC; 87040-TC; 87081-TC; 87340; 90935-TC; 93307-TC; 94799-TC; A4216; A4629; A6403; C1750; C1757; C1769; C1894; C9113; C9803; G0378; J0690; J0692; J1100; J1644; J1885; J1953; J2185; J2405; J2704; J2997; J3010; J3370; J3490; J7030; J7050; J7060; P9016; P9047; Q9967